=== PATIENT | male | born 1935 | race Caucasian/White ===

== ENCOUNTER → 2016-08-01 | Outpatient (CLI) | payer OTHER ==
[~2016-08-01] MED LIST: ASPI81TA28 PO; CEPH500C PO; DEXA1TAB16 PO; FRS/40 PO; PANT40TA PO; REVLIMID PO; RIVA1TAB4 PO; SIMV20TA2 PO
--- NOTE | 2016-08-01 15:09 | DIAGNOSTIC IMAGING REPORT ---
RIGHT KNEE 2 VIEWS CLINICAL HISTORY: Osteoarthritis. FINDINGS: AP and lateral views of the right knee are obtained. No prior studies are available for comparison at the time of dictation. The skeletal structures are osteopenic. There is moderate tricompartmental degenerative joint space narrowing, greatest at the patellofemoral articulation where there is mild bony sclerosis. There are small marginal osteophytes, patellar enthesophytes, and mild degenerative beaking of the tibial spine. A small joint effusion is noted. Mild soft tissue edema is present on the knee. IMPRESSION: 1. Small joint effusion and mild soft tissue swelling. No acute bony abnormality is seen in the right knee. 2. Osteopenia and arthritic change as above. Electronically signed by: Kj King M.D. 08/01/2016 3:08 PM Dictated Date/Time: 08/01/2016 3:06 PM
== END | disposition home or self-care (01) ==
LOC: C.RAD 14:06
PROVIDERS: ATTEND Family Medicine
DX: M17.11 Unilateral primary osteoarthritis, right knee (principal); M85.861 Other specified disorders of bone density and structure, right lower leg

== ENCOUNTER 2016-11-06 15:06 | Emergency (ER) | payer OTHER ==
[~2016-11-06] VITALS: Ht 185.4 cm; Wt 93.8 kg
[~2016-11-06 15:06] MED LIST changes: -CEPH500C PO
[2016-11-06 15:11] VITALS: Ht 185.4 cm; Wt 93.8 kg
--- NOTE | 2016-11-06 15:28 | EMERGENCY ROOM VISIT NOTE ---
History Report prepared by Raquel: Jered Shelton Under the Supervision of: Dr. Kj Llamas M.D. First contact with patient: 15:14 Chief Complaint: LEG PAIN,LEG INJURY Stated Complaint: LEFT LEG SWELLING History of Present Illness The patient is an 81 year old male on Xarelto with a history of a clot in his leg and lung who presents to the Emergency Room with complaints of persistent left leg swelling and redness that started after a fall 5 days ago. He says that he fell in his shed, and when he fell, he hit his lower left leg on the back of a event security officer. The patient notes that the event security officer was not running. He says that ever since the fall, he has had a bump on his lower left leg, with swelling and redness. He denies any pain or any problems walking. The patient states that the redness has been constant, and as the day goes on, the leg swells up more. He denies any fevers or chills. He notes that he has a history of cellulitis. The patient adds that he has seen Dr. Lorenzo of [facility] in the past. Source of History: patient Onset: 5 days ago Position: leg (left) Quality: other (swelling, redness) Timing: other (persistent) Associated Symptoms: No fevers, No chills Note: Associated symptoms: Denies any pain. Review of Systems See HPI for pertinent positives & negatives. A total of 10 systems reviewed and were otherwise negative. Past Medical & Surgical Medical Problems: (1) DVT (deep venous thrombosis) (2) History of blood clot in rght leg (3) Multiple myeloma (4) Pure Hypercholesterolem Surgical Problems: (1) History of cholecystectomy Family History FH: heart disease Social History Smoking Status: Never Smoker Alcohol Use: none Marital Status: single Housing Status: lives alone Occupation Status: employed Current/Historical Medications Scheduled Aspirin (Aspirin Ec), 81 MG PO DAILY Cephalexin Monohydrate (Keflex), 500 MG PO QID Furosemide (Lasix), 40 MG PO DAILY Pantoprazole (Protonix), 40 MG PO DAILY Rivaroxaban (Xarelto), 20 MG PO DAILY Simvastatin (Zocor), 20 MG PO QPM [Revlimid], 25 MG PO UD Allergies Coded Allergies: No Known Allergies (Unverified , 11/06/16) Physical Exam Vital Signs Date Time Temp Pulse Resp B/P (MAP) Pulse Ox O2 Delivery O2 Flow Rate FiO2 11/06/16 18:09 127/62 11/06/16 17:03 36.4 57 18 109/43 99 Room Air 11/06/16 15:11 36.5 69 20 135/73 96 Room Air Physical Exam GENERAL: Patient is in no acute distress. HEENT: No acute trauma, normocephalic atraumatic, mucous membranes moist, no nasal congestion, no scleral icterus. NECK: No stridor, no adenopathy, no meningismus, trachea is midline. LUNGS: Clear to auscultation bilaterally, no wheeze, no rhonchi, breath sounds equal. HEART: Without murmurs gallops or rubs, regular rate and rhythm. ABDOMEN: Soft, nontender, bowel sounds positive, no hernias, no peritonitis. EXTREMITIES: Chronic lower extremity skin change. Left leg is more edematous than right. There is a presumed mid-anterior left leg hematoma, about 5 cm in greatest dimension. There is surrounding erythema and warmth which extends down to the ankle, and there is some erythema extending up to the medial proximal portion of leg, with an abrasion in this area. NEUROLOGIC: Oriented x 3, no acute motor or sensory deficits, no focal weakness. SKIN: No rash, no jaundice, no diaphoresis. Medical Decision & Procedures ER Provider Diagnostic Interpretation: US results as stated below per my review and radiologist interpretation: LEFT VENOUS DOPP LOWER EXT UNILAT CLINICAL HISTORY: 81 years-old Male presenting with swelling. TECHNIQUE: Real-time grayscale and color and spectral Doppler ultrasound imaging of the veins of the left lower extremity was performed. Compression and augmentation were also utilized. COMPARISON: None. FINDINGS: Left: Common femoral vein: Patent. Femoral vein: Patent. Greater saphenous vein: Patent. Popliteal vein: Patent. Calf veins: Limited visualization. Other: At the site of clinical concern, complex hypoechoic avascular region consistent with a collection. This measures 5.4 x 2.0 x 5.5 cm. No peripheral hyperemia on color Doppler. Mild overlying subcutaneous tissue thickening. IMPRESSION: 1. No evidence of deep venous thrombosis. 2. Complex collection at the site of clinical concern along the medial calf, which is most consistent with a hematoma with abscess considered less likely. Correlate clinically Electronically signed by: Jesus Tucker M.D. 11/06/2016 5:28 PM Dictated Date/Time: 11/06/2016 5:27 PM Laboratory Results 11/06/16 15:34 Red Blood Count 3.07, Mean Corpuscular Volume 102.6, Mean Corpuscular Hemoglobin 36.2, Mean Corpuscular Hemoglobin Concent 35.2, Mean Platelet Volume 11.2, Neutrophils (%) (Auto) 48.5, Lymphocytes (%) (Auto) 27.7, Monocytes (%) ( Auto) 15.5, Eosinophils (%) (Auto) 5.4, Basophils (%) (Auto) 2.5, Neutrophils # (Auto) 1.35, Lymphocytes # (Auto) 0.77, Monocytes # (Auto) 0.43, Eosinophils # ( Auto) 0.15, Basophils # (Auto) 0.07 11/06/16 15:34 Test 11/06/16 15:34 White Blood Count 2.78 K/uL (4.8-10.8) Red Blood Count 3.07 M/uL (4.7-6.1) Hemoglobin 11.1 g/dL (14.0-18.0) Hematocrit 31.5 % (42-52) Mean Corpuscular Volume 102.6 fL (80-100) Mean Corpuscular Hemoglobin 36.2 pg (25-34) Mean Corpuscular Hemoglobin Concent 35.2 g/dl (32-36) Platelet Count 121 K/uL (130-400) Mean Platelet Volume 11.2 fL (7.4-10.4) Neutrophils (%) (Auto) 48.5 % Lymphocytes (%) (Auto) 27.7 % Monocytes (%) (Auto) 15.5 % Eosinophils (%) (Auto) 5.4 % Basophils (%) (Auto) 2.5 % Neutrophils # (Auto) 1.35 K/uL (1.4-6.5) Lymphocytes # (Auto) 0.77 K/uL (1.2-3.4) Monocytes # (Auto) 0.43 K/uL (0.11-0.59) Eosinophils # (Auto) 0.15 K/uL (0-0.5) Basophils # (Auto) 0.07 K/uL (0-0.2) RDW Standard Deviation 55.6 fL (36.4-46.3) RDW Coefficient of Variation 14.9 % (11.5-14.5) Immature Granulocyte % (Auto) 0.4 % Immature Granulocyte # (Auto) 0.01 K/uL (0.00-0.02) Prothrombin Time 12.4 SECONDS (9.0-12.0) Prothromb Time International Ratio 1.2 (0.9-1.1) Activated Partial Thromboplast Time 30.3 SECONDS (21.0-31.0) Partial Thromboplastin Ratio 1.2 Anion Gap 6.0 mmol/L (3-11) Est Creatinine Clear Calc Drug Dose 59.5 ml/min Estimated GFR () 72.6 Estimated GFR (Non- 62.6 BUN/Creatinine Ratio 14.4 (10-20) Calcium Level 8.5 mg/dl (8.5-10.1) Laboratory results reviewed by me. Medications Administered Medications (Trade) Dose Ordered Sig/Clare Route Start Time Stop Time Status Last Admin Dose Admin Ceftriaxone Sodium (Rocephin Inj) 1 gm NOW STAT IV 11/06/16 16:44 11/06/16 16:45 DC 11/06/16 16:58 1 GM ED Course 1515: The patient was evaluated in room B9. A complete history and physical exam was performed. 164: Ordered Rocephin Inj 1 gm IV. 174: I discussed the patient with Dr. Duenas of [facility] - he says that the patient can go and he will see the patient in the office. 1747: Reevaluated the patient and he is resting comfortably. Discussed results and discharge instructions: he verbalized understanding and agreement. The patient is ready for discharge. Medical Decision Differential diagnosis includes but is not limited to hematoma, cellulitis, DVT , neurovascular compromise, renal failure, coagulopathy. There is a pancytopenia present, this is baseline for the patient. There is no significant electrolyte abnormality or kidney failure. Blood cultures are pending. Left leg ultrasound shows a hematoma, no evidence for DVT. There was no concerning coagulopathy. The patient is not toxic or febrile, he is not vomiting. He was given IV ceftriaxone for presumed left lower extremity cellulitis. I spoke to orthopedics. The patient is being followed in their office for this hematoma and infection. Intervention/drainage may be required at some point. The patient was placed in a compressive dressing. He is being discharged on Keflex. He was told to stay off his leg and to return for worsening symptoms. Medication Reconcilliation Current Medication List: was personally reviewed by me Blood Pressure Screening Patient's blood pressure: Elevated blood pressure Blood pressure disposition: Elevated BP felt to be situational Consults Time Called: 1740 Consulting Physician: Dr. Duenas of [facility] Returned Call: [phone] I discussed the patient with [facility] - he says that the patient can go and he will see the patient in the office. Impression Primary Impression: Cellulitis of left leg Additional Impression: Traumatic hematoma of left lower leg Scribe Attestation The scribe's documentation has been prepared under my direction and personally reviewed by me in its entirety. I confirm that the note above accurately reflects all work, treatment, procedures, and medical decision making performed by me. Departure Information Dispostion Home / Self-Care Prescriptions Cephalexin Monohydrate (Keflex) 500 Mg Cap 500 MG PO QID for 10 Days, #40 CAP Prov: Kj Llamas M.D. 11/06/16 Referrals Andre Song M.D. (PCP) Patient Instructions My [facility] Additional Instructions keflex 4x per day for 10 days wear the pressure dressing for now try to stay off of your feet keep the leg elevated call and set up orthopedic appt for this week--call in the am return for fever or if feeling worse Problem Qualifiers
[2016-11-06 16:02] LABS: BASO % 2.5 %; BASO ABS # 0.07 K/uL (0-0.2); COMPLETE YES; EOS % 5.4 %; HEMATOCRIT 31.5 % (42-52); IG% 0.4 %; LYMPH % 27.7 %; LYMPH ABS # 0.77 K/uL (1.2-3.4); MEAN CELL VOLUME 102.6 fL (80-100); MEAN CORPUSCULAR HEMOGLOBIN 36.2 pg (25-34); MEAN CORPUSCULAR HGB CONC 35.2 g/dl (32-36); MEAN PLATELET VOLUME 11.2 fL (7.4-10.4); MONO % 15.5 %; NEUT % 48.5 %; PLATELET COUNT 121 K/uL (130-400); RED BLOOD COUNT 3.07 M/uL (4.7-6.1); WHITE BLOOD COUNT 2.78 K/uL (4.8-10.8)
[2016-11-06 16:09] LABS: INR 1.2 (0.9-1.1); PARTIAL THROMBOPLASTIN RATIO 1.2; PROTHROMBIN TIME (PATIENT) 12.4 SECONDS (9.0-12.0)
[2016-11-06 16:17] LABS: BUN/CREATININE RATIO 14.4 (10-20); CALCIUM 8.5 mg/dl (8.5-10.1); CREATININE 1.1 mg/dl (0.60-1.40); POTASSIUM 3.3 mmol/L (3.5-5.1)
[2016-11-06] MEDS ORDERED: CEFTRIAXONE SOD INJ 1 GM ADDVIAL IV STA (16:44)
[2016-11-06 17:03] VITALS: PULSE 57; TEMP 36.4; O2SAT 99
--- NOTE | 2016-11-06 17:30 | DIAGNOSTIC IMAGING REPORT ---
LEFT VENOUS DOPP LOWER EXT UNILAT CLINICAL HISTORY: 81 years-old Male presenting with swelling. TECHNIQUE: Real-time grayscale and color and spectral Doppler ultrasound imaging of the veins of the left lower extremity was performed. Compression and augmentation were also utilized. COMPARISON: None. FINDINGS: Left: Common femoral vein: Patent. Femoral vein: Patent. Greater saphenous vein: Patent. Popliteal vein: Patent. Calf veins: Limited visualization. Other: At the site of clinical concern, complex hypoechoic avascular region consistent with a collection. This measures 5.4 x 2.0 x 5.5 cm. No peripheral hyperemia on color Doppler. Mild overlying subcutaneous tissue thickening. IMPRESSION: 1. No evidence of deep venous thrombosis. 2. Complex collection at the site of clinical concern along the medial calf, which is most consistent with a hematoma with abscess considered less likely. Correlate clinically Electronically signed by: Jesus Tucker M.D. 11/06/2016 5:28 PM Dictated Date/Time: 11/06/2016 5:27 PM
[2016-11-06] MEDS ORDERED: CEPH500C PO (17:53)
[2016-11-06 18:09] VITALS: BP 127/62
== END 2016-11-06 18:09 | disposition home or self-care (01) ==
LOC: C.EDB 15:08
DX: L03.116 Cellulitis of left lower limb (principal); S80.12XA Contusion of left lower leg, initial encounter; W18.30XA Fall on same level, unspecified, initial encounter; Y92.018 Other place in single-family (private) house as the place of occurrence of the external cause; S80.812A Abrasion, left lower leg, initial encounter; C90.00 Multiple myeloma not having achieved remission; E78.00 Pure hypercholesterolemia, unspecified; Z79.01 Long term (current) use of anticoagulants; Z79.82 Long term (current) use of aspirin; Z86.718 Personal history of other venous thrombosis and embolism

== ENCOUNTER 2024-09-04 16:02 | Inpatient (IN) ==
--- NOTE | 2024-09-04 16:53 | Emergency Department Note ---
Impression & Plan Acute dyspnea, Acute hypoxemic respiratory failure, Large pleural effusion, Elevated brain natriuretic peptide (BNP) level ED Provider Note HISTORY OF PRESENT ILLNESS: Patient is an 89-year-old male presenting with shortness of breath. Patient reports that starting 2 days ago he became very short of breath. He is unable to take more than 2-3 steps before becoming significantly winded and having to sit down. He does not wear any supplemental oxygen at baseline. He reports he has chronic lower extremity edema. He is on Xarelto for history of DVTs. He had outpatient chest x-ray done at his facility which showed fluid on his right lungs and was referred to the emergency department. Patient denies any chest pain while at rest, but reports when he tries to get up and take any steps, he becomes very winded and has substernal chest pain. He denies any abdominal pain, nausea or vomiting. Denies any fevers. He reports that he has been coughing and it sounds very wet, but he is unable to bring anything up. Patient denies any recent falls prior to his acute shortness of breath in the last 2 days. He reports his last fall was 2 weeks ago when he presented to the hospital on 08/17/2024. ROS: as above PHYSICAL EXAM: Constitutional: Patient appears in no acute distress. HENT: Head: Normocephalic and atraumatic. Eyes: EOMI, PERRL Mouth/Throat: Mucous membranes moist. Neck: Trachea midline. Neck supple. Cardiovascular: Irregular rhythm. No murmurs, rubs or gallops. Intact distal pulses. Pulmonary/Chest: Increased work of breathing. Conversationally dyspneic. Significantly decreased breath sounds on the right with coarse breath sounds in the right lower lobe. Patient is on 2 L nasal cannula. Abdominal: Abdomen soft, no tenderness, rebound or guarding. Musculoskeletal: No edema, tenderness or deformity noted. Skin: Warm and dry. No rash, erythema, pallor or cyanosis Psychiatric: Appropriate mood and affect for situation. Neurological: Alert and keenly responsive. CN II-XII grossly intact, moving all extremities equally and fully. MDM: - Vitals signs showed hypoxia - History obtained via patient. History as above. - Chronic conditions affecting care: GERD; multiple myeloma; HLD; DVT; Afib - Differential diagnoses include, but are not limited to: Congestive heart failure; acute coronary syndrome; COPD/asthma exacerbation; pulmonary edema; pulmonary embolism; pneumonia; pneumothorax; viral syndrome - Order placed for continuous cardiac monitoring. At this time, monitor showed rate of 93 bpm with irregular rhythm, per my interpretation. - External medical records reviewed. Discharge summary dated 08/24/2024 was reviewed. Patient was admitted for septic shock at that time secondary to necrotizing fasciitis. - EKG image interpreted by myself showed atrial fibrillation. Rate 78 bpm. QT 358. No acute ischemic changes. - Laboratory workup interpreted by myself showed normal WBC; anemia (Hgb 10.1); elevated INR (1.4); stable electrolytes other than hypocalcemia (Ca 8.3); normal troponin; elevated BNP (328) - UA negative for infection - Viral respiratory panel negative - CXR image reviewed by myself showed complete opacification of the right lung, per my interpretation. Radiology notes this to be consistent with a large pleural effusion. - Discussed case with business services vice president on-call, Dr. Chino, at 17:33. States that the patient's chest x-ray looks like a bronchial obstruction and requested a CT chest to be performed. - CT chest wo contrast showed large right pleural effusion occupying the hemothorax and compressing the right lung. Small left pleural effusion. Noted to have ribs 9 and 10 with displaced rib fractures, but these are likely from previous fall 2 weeks ago. - Sputum Gram stain and culture ordered. Patient was transition to high flow nasal cannula from the regular nasal cannula due to increased work of breathing. - Given 40 mg IV lasix - Discussion was had with machine adjuster leader case trim about patient's case and need for admission - Hospitalist, Dr. Alfaro, consulted for admission - [facility]. I have personally spent 42 minutes of critical care time in the direct management of this patient. This includes bedside care, interpretation of diagnostic studies, and testing, discussion with consultants, patient, and family members, and other required patient management activities. This 42 minutes is in excess of all separately billable procedures. ASSESSMENT AND PLAN: Diagnosis: Acute dyspnea; acute hypoxemic respiratory failure; large pleural effusion; elevated BNP Plan: Admit Past Med/Surg History Problem List (Updated 09/04/24 @ 20:16 by Carlene Alcocer MD) Elevated brain natriuretic peptide (BNP) level (Acute) Large pleural effusion (Acute) Acute hypoxemic respiratory failure (Acute) Acute dyspnea (Acute) Vitamin B12 deficiency Atrial fibrillation Acute respiratory failure Pleural effusion Bacteremia due to Clostridium species Gram-positive bacteremia Infection due to Clostridium septicum Closed femur fracture Hyponatremia Elevated troponin Endotracheally intubated Electrolyte disorder Abnormal LFTs Hypomagnesemia Pancytopenia Rhabdomyolysis Head injury Septic shock Necrotizing fasciitis Sepsis (Acute) Acute hypokalemia (Acute) Fasciitis (Acute) Pneumonia (Acute) Anticoagulated (Acute) Multiple falls (Acute) Generalized weakness (Acute) Fracture of proximal end of right femur Recurrent left inguinal hernia Left groin mass Multiple myeloma (Chronic) Follow[facility] by [facility], underwent recent testing advised by heme/onc for unintentional weight loss-see 10/24/22 note Macrocytic anemia 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 AC with rivaroxaban daily. Hyperlipidemia (Chronic) GERD (gastroesophageal reflux disease) (Chronic) Chronic venous stasis (Chronic) Medical History Weight loss, non-intentional pt states lost about 30lbs beginning of 2023 intentionally and then another almost 30unitentionally; d/w PCP and [facility] who ordered colonosopy/EGD which he completed last month (was told were normal) and is awaiting further advice Squamous cell skin cancer s/p MOHS Hyperlipidemia GERD (gastroesophageal reflux disease) Chronic venous stasis DVT (deep venous thrombosis) per pt, had 1 DVT in each leg and after 2nd was put on Xarelto; no DVT since starting Xarelto Multiple myeloma follows with CCP; on lenalidomide daily Anemia macrocytic; pt states occasionally receives iron transfusios; follows with Heme Incarcerated left inguinal hernia History of COVID-26 August 2021 Generalized osteoarthritis Primarily of R knee. Intermittent corticosteroid injections per ortho. 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 Hx of removal of cyst left knee History of colonoscopy S/P cholecystectomy Family History Mother Cardiac disorder Myocardial infarction Brother Cardiac disorder Father Stroke Denies family history of Ovarian cancer Prostate cancer Breast cancer Colorectal cancer Social History Smoking Status: Unknown if ever smoked Tobacco Type: Cigarettes Age Started Using Tobacco: 18; Age Quit Using Tobacco: 21; packs per day: 1; Second Hand Exposure: No; Do You Dip or Chew Tobacco: No; Hx Alcohol Use: Yes Alcohol type: wine Alcohol Intake Frequency: 4 or More x per/Week Alcohol Intake Frequency Comment: 1 glass daily Hx Substance Use: No Preferred Language: Kiswahili Communication Ability: Impaired Visual Impairment: No Limitations Hearing Ability: Use of Hearing Aid Health Information Tech Required: No Beliefs That Will Affect Care: None marital status: / Current Living Situation: Alone current occupational status: retired How many Children do You have: 3 Feels Safe at Home: Yes Childhood Exposure to Second-Hand Smoke: Yes (parents did ) Diet: regular caffeine: Yes (drinks coffee 1-2 a day, green tea, iced tea ) Dental Care, Regularly: Yes Physical Activity Frequency: 5-6 Times per Week Seatbelt Use: always Sunscreen Use: Yes (tries to ) Assistive Devices: Cane, Walker and Wheelchair Allergies Allergies Allergy/AdvReac Type Severity Reaction Status Date / Time No Known Allergies Allergy Verified 08/17/24 17:04 Home Meds Home Medications Medication Instructions Recorded Confirmed lenalidomide 25 mg capsule 25 mg PO QPM 10/23/21 09/04/24 (Revlimid) ergocalciferol (vitamin D2) 1,250 1,250 mcg PO WK 05/21/24 09/04/24 mcg (50,000 unit) capsule acyclovir 400 mg tablet 400 mg PO BID 08/17/24 09/04/24 bortezomib 3.5 mg injection powder 0 mg IV WK 08/17/24 09/04/24 for solution (Velcade) Previous Rx's Medication Instructions Recorded pantoprazole 40 mg tablet,delayed 40 mg PO HS #90 tabs 01/13/24 release potassium chloride 20 mEq 20 meq PO HS #90 tabs 01/21/24 tablet,extended release rivaroxaban 20 mg tablet (Xarelto) 20 mg PO QPM #90 tabs 03/04/24 metoprolol tartrate 25 mg tablet 12.5 mg (1/2 x 25 mg) PO QAM 30 08/24/24 days #30 tabs midodrine 10 mg tablet 10 mg PO TID@0800,1200,1700 30 08/24/24 days #90 tabs pkevkqym-pyl-vzlya acid 0.4 1 tab PO QAM 30 days #30 tabs 08/24/24 mg-lycopene 300 mcg-lutein 250 mcg tablet (Cerovite Senior) Results & Data (ED) Vital Signs Vital Signs - 24 hr 09/04/24 16:10 09/04/24 16:10 09/04/24 16:10 Temperature 36.4 C L Temperature Source Oral Pulse Rate 85 Pulse Rate [Right Finger] Respiratory Rate 24 Respiratory Effort / Characteristics Spontaneous Labored Spontaneous Labored Respiratory Depth Normal Normal Respiratory Pattern Regular Regular Blood Pressure 131/59 L Blood Pressure [Right Arm] Blood Pressure Mean 83 Blood Pressure Mean [Right Arm] Pulse Oximetry 91 91 Oxygen Delivery Method Nasal Cannula Room Air Room Air Oxygen Flow Rate 2 Fraction of Inspired Oxygen Sepsis Recent Fever Within 48 Hours No Sepsis New/Unexplained Change in Mental Status No Sepsis Action Taken by Nursing No Action Required Oxygen Flow Rate - Titration 2 Pulse Oximetry Post Tiitration 95 09/04/24 16:24 09/04/24 16:31 09/04/24 17:29 Temperature Temperature Source Pulse Rate 80 Pulse Rate [Right Finger] 94 H Respiratory Rate 33 H Respiratory Effort / Characteristics Spontaneous Labored Short of Breath Respiratory Depth Respiratory Pattern Blood Pressure Blood Pressure [Right Arm] Blood Pressure Mean Blood Pressure Mean [Right Arm] Pulse Oximetry 96 96 Oxygen Delivery Method Nasal Cannula High Flow Nasal Cannula Oxygen Flow Rate 2 50 Fraction of Inspired Oxygen 30 Sepsis Recent Fever Within 48 Hours Sepsis New/Unexplained Change in Mental Status Sepsis Action Taken by Nursing Oxygen Flow Rate - Titration Pulse Oximetry Post Tiitration 09/04/24 17:30 09/04/24 19:00 Temperature Temperature Source Pulse Rate Pulse Rate [Right Finger] 81 94 H Respiratory Rate 29 H 28 H Respiratory Effort / Characteristics Non-Labored Spontaneous Spontaneous Labored Respiratory Depth Normal Normal Respiratory Pattern Regular Blood Pressure Blood Pressure [Right Arm] 113/69 97/62 L Blood Pressure Mean Blood Pressure Mean [Right Arm] 83 73 Pulse Oximetry 95 94 Oxygen Delivery Method High Flow Nasal Cannula High Flow Nasal Cannula Oxygen Flow Rate Fraction of Inspired Oxygen Sepsis Recent Fever Within 48 Hours Sepsis New/Unexplained Change in Mental Status Sepsis Action Taken by Nursing Oxygen Flow Rate - Titration Pulse Oximetry Post Tiitration Laboratory Data 09/04/24 16:36 09/04/24 16:36 Lab Results 09/04/24 09/04/24 09/04/24 Range/Units 16:36 16:37 17:50 WBC 5.19 (4.8-10.8) K/ul RBC 3.00 L (4.70-6.10) M/uL Hgb 10.1 L (14.0-18.0) g/dl Hct 31.8 L (42.0-52.0) % MCV 106.0 H (80.0-100.0) fL MCH 33.7 (25.0-34.0) pg MCHC 31.8 L (32.0-36.0) g/dL RDW Std Deviation 66.3 H (36.4-46.3) fL RDW Coeff of Ezequiel 17.2 H (11.5-14.5) % Plt Count 169 (130-400) K/uL MPV 11.1 (9.4-12.4) fL Immature Gran % (Auto) 0.2 % Neut % (Auto) 75.3 % Lymph % (Auto) 8.9 % Dane % (Auto) 15.2 % Eos % (Auto) 0.2 % Baso % (Auto) 0.2 % Neut # (Auto) 3.91 (1.40-6.50) K/uL Lymph # (Auto) 0.46 L (1.20-3.40) K/uL Dane # (Auto) 0.79 H (0.11-0.59) K/uL Eos # (Auto) 0.01 (0.00-0.50) K/uL Baso # (Auto) 0.01 (0.00-0.20) K/uL Immature Gran # (Auto) 0.01 (0.01-0.20) K/uL PT 15.2 H (9.0-12.0) Seconds INR 1.4 H (0.9-1.1) Sodium 139 (136-145) mmol/L Potassium 3.6 (3.5-5.1) mmol/L Chloride 101 (98-107) mmol/L Carbon Dioxide 32 (21-32) mmol/L Anion Gap 6 (3-11) BUN 25 H (6-23) mg/dl Creatinine 0.80 (0.6-1.4) mg/dl Est Cr Clr Drug Dosing 68.7 ml/min eGFR 84.59 BUN/Creatinine Ratio 31.3 H (10-20) Glucose 190 H (70-99(Fasting)) mg/dl Calcium 8.3 L (8.6-10.3) mg/dl Magnesium 1.9 (1.7-2.4) mg/dl Total Bilirubin 0.8 (0.2-1.0) mg/dl AST 15 (13-39) U/L ALT 13 (7-52) U/L Alkaline Phosphatase 159 H (34-104) U/L Troponin I High Sens 11.9 (0-20) pg/ml B-Natriuretic Peptide 328 H (0-100) pg/ml Total Protein 6.2 (6.0-8.3) gm/dl Albumin 2.6 L (3.4-5.0) gm/dl Globulin 3.6 (2.5-4.0) gm/dl Albumin/Globulin Ratio 0.7 L (0.9-2) Urine Color Dark Yellow Urine Appearance Clear (Clear) Urine pH 5.5 (4.5-7.5) Ur Specific [place] 1.020 (1.000-1.030) Urine Protein 1+ H (Negative) Urine Glucose (UA) Negative (Negative) Urine Ketones Trace H (Negative) Urine Blood 1+ H (Negative) Urine Nitrite Negative (Negative) Urine Bilirubin Negative (Negative) Urine Urobilinogen Negative (Negative) Ur Leukocyte Esterase Negative (Negative) Urine WBC (Auto) 0-5 (0-5) /hpf Urine RBC (Auto) >20 H (0-2) /hpf U Hyaline Cast (Auto) 6-10 H (0-2) /lpf U Epithel Cells (Auto) 0-2 (0-2) /hpf Urine Bacteria (Auto) None Seen (None Seen) Hyaline Casts Present A (None Presnt) /lpf Urine Mucus Present A (None Prsent) Urine Comment Adenovirus (PCR) Not Detected (NotDetected) B. pertussis DNA (PCR) Not Detected (NotDetected) B.parapertussis DNA PCR Not Detected (NotDetected) C. pneumoniae DNA (PCR) Not Detected (NotDetected) Coronavirus OC43 (PCR) Not Detected (NotDetected) Coronavirus HKU1 (PCR) Not Detected (NotDetected) Coronavirus 229E (PCR) Not Detected (NotDetected) SARS-CoV-2 (PCR) Not Detected (NotDetected) Coronavirus NL63 (PCR) Not Detected (NotDetected) Human Metapneumovir PCR Not Detected (NotDetected) Influenza Type A (PCR) Not Detected (NotDetected) Influenza Type B (PCR) Not Detected (NotDetected) M. pneumoniae (PCR) Not Detected (NotDetected) Parainfluenza 1 (PCR) Not Detected (NotDetected) Parainfluenza 2 (PCR) Not Detected (NotDetected) Parainfluenza 3 (PCR) Not Detected (NotDetected) Parainfluenza 4 (PCR) Not Detected (NotDetected) RSV (PCR) Not Detected (NotDetected) Entero/Rhino (PCR) Not Detected (NotDetected) Administered Medications Discontinued Medications Furosemide (Furosemide 40 Mg/4 Ml Vial) 40 mg IV ONE ONE Stop: 09/04/24 17:27 Last Admin: 09/04/24 17:45 Dose: 40 mg Documented By: ALLEGRA Ioversol (Optiray 320 100ml) 93 ml IV ONCE ONE Stop: 09/04/24 18:10 Last Admin: 09/04/24 18:09 Dose: 93 ml Documented By: EDK Imaging Data Radiologist's Impression: Chest X-Ray 09/04/24 16:20 Chest radiograph, one view History: Dyspnea Comparison: 08/20/2024 Findings/impression: Single AP view of the chest performed. Complete opacification of the right hemithorax, consistent with enlarged pleural effusion from what was seen on prior. A smaller left pleural effusion is also appreciated. No pneumothorax. The cardiac silhouette is partially obscured. The central airway is midline. Right shoulder severe degenerative change. Degenerative changes throughout the thoracic spine. Inferolateral right rib fractures again seen as on prior. Electronically signed by Luiz Carrillo 09-04-2024 5:[address] 09/04/24 17:33 CT chest without contrast History: Shortness of breath Comparison: None Technique: Helical CT imaging of the chest performed without IV contrast Dose reduction techniques were achieved by using automatic exposure control and/or adjustment of mA and/or kV according to patient size and/or use of iterative reconstruction technique. Findings: A large right pleural effusion, occupies essentially the entire right hemithorax, compressing of the right lung. There is a small left pleural effusion. No pneumothorax. Heart size is normal. The thoracic aorta is normal in size. The pulmonary artery is normal in size. No significant pericardial effusion. No suspicious lymphadenopathy in the chest. The central airway is clear. Limited visualized upper abdomen. Posterior right-sided rib fractures, rib 10 with healing callus posteriorly, and laterally is a displaced fracture without healing callus. Posterior right rib 11 fracture with healing callus. Displaced lateral right rib 9 fracture without healing callus. Diffuse anterior flowing degenerative osteophytes of the thoracic spine. Impression: Large right pleural effusion occupying the hemithorax, and compressing the right lung. Small left pleural effusion. Right ribs 9 and 10, contain displaced rib fractures, which may be acute. There is also healing callus associated with a posterior right rib 11, and another portion of the posterior right rib 10, suggesting healing fractures. Electronically signed by Luiz Carrillo 09-04-2024 6:41 PM Discharge Plan Visit Data Chief Complaint: Respiratory Problems ED Provider: Carlene Alcocer Discharge Problem: Acute dyspnea, Acute hypoxemic respiratory failure, Large pleural effusion, Elevated brain natriuretic peptide (BNP) level Condition: Fair Forms Stand Alone Forms: [employer] Prescriptions Prescriptions: No Action pantoprazole 40 mg tablet,delayed release (DR/EC) 40 mg PO HS Qty: 90 3RF potassium chloride 20 mEq tablet extended release 20 meq PO HS Qty: 90 1RF Xarelto 20 mg tablet 20 mg PO QPM Qty: 90 3RF Rx Instructions: must administer with evening meal ergocalciferol (vitamin D2) 1,250 mcg (50,000 unit) capsule 1,250 mcg PO WK lenalidomide [Revlimid] 25 mg Capsule 25 mg PO QPM Hold Instructions: Resume on 09/08/24. Rx Instructions: TAKES FOR 21 DAYS, THEN OFF FOR 7 DAYS. swallow whole with glass of water; do not open, crush, chew , break, or dissolve acyclovir 400 mg tablet 400 mg PO BID bortezomib [Velcade] 3.5 mg Recon Soln 0 mg IV WK Hold Instructions: Resume on 09/08/24. Cerovite Senior 0.4 mg-300 mcg- 250 mcg Tablet 1 tab PO QAM 30 Days Qty: 30 0RF midodrine 10 mg Tablet 10 mg PO TID@0800,1200,1700 30 Days Qty: 90 0RF metoprolol tartrate 25 mg Tablet 12.5 mg PO QAM 30 Days Qty: 30 0RF Referrals Referrals: Perez Berman DO [Primary Care Provider] -
[2024-09-04 16:58] LABS: Hematocrit (blood only) 31.8 % (42.0-52.0); Hemoglobin 10.1 g/dl (14.0-18.0); Immature Granulocytes # (auto) 0.01 K/uL (0.01-0.20); Immature Granulocytes % (auto) 0.2 %; Mean Corpuscular Hemoglobin 33.7 pg (25.0-34.0); Mean Corpuscular Volume 106.0 fL (80.0-100.0); Platelet Count 169 K/uL (130-400); RDW Standard Deviation 66.3 fL (36.4-46.3); Red Blood Count 3.00 M/uL (4.70-6.10); White Blood Count 5.19 K/ul (4.8-10.8)
[2024-09-04 17:17] LABS: Alanine Aminotransferase 13.0 U/L (7-52); Albumin Globulin Ratio 0.7 (0.9-2); Alkaline Phosphatase 159.0 U/L (34-104); Anion Gap 6.0 (3-11); Bilirubin,Total 0.8 mg/dl (0.2-1.0); Blood Urea Nitrogen 25.0 mg/dl (6-23); Calcium 8.3 mg/dl (8.6-10.3); Carbon Dioxide 32.0 mmol/L (21-32); Chloride 101.0 mmol/L (98-107); Creatinine Clr Calc Pharmacy 68.7 ml/min; Globulin 3.6 gm/dl (2.5-4.0); Glucose 190.0 mg/dl (70-99(Fasting)); Magnesium 1.9 mg/dl (1.7-2.4); Potassium 3.6 mmol/L (3.5-5.1); Sodium 139.0 mmol/L (136-145); Total Protein 6.2 gm/dl (6.0-8.3)
--- NOTE | 2024-09-04 17:22 | XRay Report ---
Chest radiograph, one view History: Dyspnea Comparison: 08/20/2024 Findings/impression: Single AP view of the chest performed. Complete opacification of the right hemithorax, consistent with enlarged pleural effusion from what was seen on prior. A smaller left pleural effusion is also appreciated. No pneumothorax. The cardiac silhouette is partially obscured. The central airway is midline. Right shoulder severe degenerative change. Degenerative changes throughout the thoracic spine. Inferolateral right rib fractures again seen as on prior. Electronically signed by Luiz Carrillo 09-04-2024 5:21 PM
[2024-09-04 17:42] LABS: INR 1.4 (0.9-1.1); Prothrombin Time 15.2 Seconds (9.0-12.0)
[2024-09-04 17:43] LABS: Chlamydia pneumoniae PCR Not Detected (NotDetected); Coronavirus 229E PCR Not Detected (NotDetected); Coronavirus CoV-2 (COVID19)PCR Not Detected (NotDetected); Coronavirus HKU1 PCR Not Detected (NotDetected); Coronavirus NL63 PCR Not Detected (NotDetected); Coronavirus OC43PCR Not Detected (NotDetected); Human Metapneumovirus PCR Not Detected (NotDetected); Parainfluenza Virus 1 PCR Not Detected (NotDetected); Parainfluenza Virus 2 PCR Not Detected (NotDetected); Parainfluenza Virus 3 PCR Not Detected (NotDetected); Parainfluenza Virus 4 PCR Not Detected (NotDetected); Respiratory Syncytial VirusPCR Not Detected (NotDetected); Rhinovirus/Enterovirus PCR Not Detected (NotDetected)
[2024-09-04] MEDS: FUROSEMIDE 40 MG/4 ML VIAL IV ONE (17:45)
[2024-09-04] MEDS: OPTIRAY 320 100ml IV ONE (18:09)
[2024-09-04 18:20] LABS: Appearance Urine Clear (Clear); Bacteria Urine Automated None Seen (None Seen); Epithelial Cell Urine Auto 0-2 /hpf (0-2); Glucose Urine UA Negative (Negative); RBC Urine Automated >20 /hpf (0-2); WBC Urine Automated 0-5 /hpf (0-5)
--- NOTE | 2024-09-04 18:42 | CT Scan Report ---
CT chest without contrast History: Shortness of breath Comparison: None Technique: Helical CT imaging of the chest performed without IV contrast Dose reduction techniques were achieved by using automatic exposure control and/or adjustment of mA and/or kV according to patient size and/or use of iterative reconstruction technique. Findings: A large right pleural effusion, occupies essentially the entire right hemithorax, compressing of the right lung. There is a small left pleural effusion. No pneumothorax. Heart size is normal. The thoracic aorta is normal in size. The pulmonary artery is normal in size. No significant pericardial effusion. No suspicious lymphadenopathy in the chest. The central airway is clear. Limited visualized upper abdomen. Posterior right-sided rib fractures, rib 10 with healing callus posteriorly, and laterally is a displaced fracture without healing callus. Posterior right rib 11 fracture with healing callus. Displaced lateral right rib 9 fracture without healing callus. Diffuse anterior flowing degenerative osteophytes of the thoracic spine. Impression: Large right pleural effusion occupying the hemithorax, and compressing the right lung. Small left pleural effusion. Right ribs 9 and 10, contain displaced rib fractures, which may be acute. There is also healing callus associated with a posterior right rib 11, and another portion of the posterior right rib 10, suggesting healing fractures. Electronically signed by Luiz Carrillo 09-04-2024 6:41 PM
--- NOTE | 2024-09-04 19:37 | History & Physical Report ---
Date of Service September 04, 2024 Assessment & Plan (1) Pleural effusion: (2) Acute respiratory failure: (3) Multiple myeloma: (4) History of deep venous thrombosis: (5) Atrial fibrillation: (6) Vitamin B12 deficiency: Plan 89-year-old man with multiple myeloma and recently diagnosed atrial fibrillation who came in with 2 days of increasing shortness of breath at rest. He had a femur fracture this April. He was recently hospitalized from 08/17 - 08/24. during that admission he was critically ill with necrotizing fasciitis of his right thigh from Clostridium and he was bacteremic. He had debridement, treatment with antibiotics, and was discharged to [facility] for rehab with wound VAC. He should have completed his course of Bactrim 4 days ago as advised by ID. he is admitted with highly symptomatic large right pleural effusion # large right pleural effusion feeling almost entire right hemithorax causing acute respiratory failure he did have some relatively mild pleural effusion visible on his chest x-ray from 08/20. He has severe anasarca, is hypoalbuminemic, and it is possible that the effusion is simply transudative and related to his fluid overload. He is not known to have CHF, Echo 08/20 with EF 55-60% and moderate MR. Could be parapneumonic but empyema seems less likely since not septic at this time. Myeloma rarely causes myelomatous effusion. He has several right sided rib fractures but I do not think any are acute and Hg has increased compared to discharge so hemothorax unlikely. - he is not severely hypoxic however work of breathing significantly improved on high flow oxygencontinue this - he is at risk for tiring out and hypercarbia, obtain ABG or VBG with any change in status or alteration in mental status - he is more comfortable on high flow and will try to avoid morphine or lorazepam for now but these can be used judiciously for dyspnea - ED consulted with Dr. Chino who recommended chest CT - holding Xarelto, keep n.p.o. on sips and chips in case he has respiratory worsening overnight - he will need thoracentesis soon hopefully can hold until tomorrow when some of the Xarelto has reversed. Calling [facility] to double check when xarelto was last given, hopefully 09/03 dinner time - no antibiotics at this time # atrial fibrillation and history of DVT on xarelto - xarelto held - continue metoprolol - SCD's # recent septic shock from Clostridium septicum R thigh necrotizing fasciitis and bacteremia - continue wound care, consulted WON to continue wound vac - completed antibiotics - had been on midodrine for hypotension - clarify whether currently on this. 10 tid ordered # multiple myeloma - followed by Dr. Kingsley - recently on velcade and revlimid - held - WBC normal at 4, platelets normal, anemia stable # B12 deficiency, macrocytosis. Recent B12 level in the 100s. Start daily IM B12 # DVT ppx - SCD for tonight, recent dose of xarelto I diiscussed code status with him in some detail. I did discuss likely outcomes of CPR and intubation, which would be poor in his case. He prefers trial of CPR and of intubation at this point. He says he would not want male infertility specialist mechanical ventilation or trach. He has had significant decline in his medical and functional status since April of this year. He is readmitted following a recent critical illness. He remains very weak and is able to stand and transfer but not able to walk. Its fairly unlikely he will regain functional status to the point where he can resume full treatment for his myeloma. Palliative care consultation is appropriate, which I will discuss with him. His NOK is his son James. History of Present Illness Chief Complaint: shortness of breath for the last 2 days Primary Care Provider: Perez Berman, 89-year-old man with multiple myeloma and atrial fibrillation who came in with 2 days of increasing shortness of breath at rest. He had some rib pain during this time but none currently. He is coughing up white sputum. No hemoptysis. No fevers or chills. He had a femur fracture this April. He was recently hospitalized from 08/17 - 08/24. during that admission he was critically ill with necrotizing fasciitis of his right thigh from Clostridium and he was bacteremic. He had debridement, treatment with antibiotics, and was discharged to [facility] for rehab. He should have completed his course of Bactrim 4 days ago as advised by ID. He has severe anasarca since his previous hospitalization which he says has been improving a lot. prior to that admission he had been on Revlimid and Velcade for his myeloma. Allergies Allergy/AdvReac Type Severity Reaction Status Date / Time No Known Allergies Allergy Verified 08/17/24 17:04 Home Medications Medication Instructions Recorded Confirmed Type lenalidomide 25 mg capsule 25 mg PO QPM 10/23/21 09/04/24 History (Revlimid) pantoprazole 40 mg tablet,delayed 40 mg PO HS #90 tabs 01/13/24 09/04/24 Rx release potassium chloride 20 mEq 20 meq PO HS #90 tabs 01/21/24 09/04/24 Rx tablet,extended release rivaroxaban 20 mg tablet (Xarelto) 20 mg PO QPM #90 tabs 03/04/24 09/04/24 Rx ergocalciferol (vitamin D2) 1,250 1,250 mcg PO WK 05/21/24 09/04/24 History mcg (50,000 unit) capsule acyclovir 400 mg tablet 400 mg PO BID 08/17/24 09/04/24 History bortezomib 3.5 mg injection powder 0 mg IV WK 08/17/24 09/04/24 History for solution (Velcade) metoprolol tartrate 25 mg tablet 12.5 mg (1/2 x 25 mg) PO QAM 30 08/24/24 09/04/24 Rx days #30 tabs midodrine 10 mg tablet 10 mg PO TID@0800,1200,1700 30 08/24/24 09/04/24 Rx days #90 tabs [id number]-mffme acid 0.4 1 tab PO QAM 30 days #30 tabs 08/24/24 09/04/24 Rx mg-lycopene 300 mcg-lutein 250 mcg tablet ([employer]) Past Med/Surg History Problem List (Updated 09/04/24 @ 19:31 by Verito Alfaro MD) Vitamin B12 deficiency Atrial fibrillation Acute respiratory failure Pleural effusion Bacteremia due to Clostridium species Gram-positive bacteremia Infection due to Clostridium septicum Closed femur fracture Hyponatremia Elevated troponin Endotracheally intubated Electrolyte disorder Abnormal LFTs Hypomagnesemia Pancytopenia Rhabdomyolysis Head injury Septic shock Necrotizing fasciitis Sepsis (Acute) Acute hypokalemia (Acute) Fasciitis (Acute) Pneumonia (Acute) Anticoagulated (Acute) Multiple falls (Acute) Generalized weakness (Acute) Fracture of proximal end of right femur Recurrent left inguinal hernia Left groin mass Multiple myeloma (Chronic) Follow[facility] by [facility], underwent recent testing advised by heme/onc for unintentional weight loss-see 10/24/22 note Macrocytic anemia 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 AC with rivaroxaban daily. Hyperlipidemia (Chronic) GERD (gastroesophageal reflux disease) (Chronic) Chronic venous stasis (Chronic) Medical History Weight loss, non-intentional pt states lost about 30lbs beginning of 2023 intentionally and then another almost 30unitentionally; d/w PCP and K[facility] Bolter who ordered colonosopy/EGD which he completed last month (was told were normal) and is awaiting further advice Squamous cell skin cancer s/p MOHS Hyperlipidemia GERD (gastroesophageal reflux disease) Chronic venous stasis DVT (deep venous thrombosis) per pt, had 1 DVT in each leg and after 2nd was put on Xarelto; no DVT since starting Xarelto Multiple myeloma follows with CCP; on lenalidomide daily Anemia macrocytic; pt states occasionally receives iron transfusios; follows with Heme Incarcerated left inguinal hernia History of COVID-26 August 2021 Generalized osteoarthritis Primarily of R knee. Intermittent corticosteroid injections per ortho. 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 Hx of removal of cyst left knee History of colonoscopy S/P cholecystectomy Family History Mother Cardiac disorder Myocardial infarction Brother Cardiac disorder Father Stroke Denies family history of Ovarian cancer Prostate cancer Breast cancer Colorectal cancer Social History Smoking Status: Unknown if ever smoked Tobacco Type: Cigarettes Age Started Using Tobacco: 18; Age Quit Using Tobacco: 21; packs per day: 1; Second Hand Exposure: No; Do You Dip or Chew Tobacco: No; Hx Alcohol Use: Yes Alcohol type: wine Alcohol Intake Frequency: 4 or More x per/Week Alcohol Intake Frequency Comment: 1 glass daily Hx Substance Use: No Preferred Language: Guinean Communication Ability: Impaired Visual Impairment: No Limitations Hearing Ability: Use of Hearing Aid Waxer Operator Required: No Beliefs That Will Affect Care: None marital status: / Current Living Situation: Alone current occupational status: retired How many Children do You have: 3 Feels Safe at Home: Yes Childhood Exposure to Second-Hand Smoke: Yes (parents did ) Diet: regular caffeine: Yes (drinks coffee 1-2 a day, green tea, iced tea ) Dental Care, Regularly: Yes Physical Activity Frequency: 5-6 Times per Week Seatbelt Use: always Sunscreen Use: Yes (tries to ) Assistive Devices: Cane, Walker and Wheelchair Review of Systems Review of Systems: All systems reviewed & are unremarkable except as noted in HPI & below Physical Exam Physical Exam: Last 24h vitals reviewed GEN: Sitting up in bed in the ED wearing high flow oxygen HEENT: pupils equal, sclerae anicteric, try MM RESP: tachypneic and moderately labored, with abdominal breathing and retractions, can speak in long phrases. Breath sounds are absent from the right hemithorax which is also dull to percussion. Right side is clear. no stridor CV: irregularly irregular with no murmur, EJ's are visible sitting upright ABD: soft/nt/nd +BT. question of fluid wave/ascites : Grissom catheter draining light yellow urine extremities: He has a significant amount of anasarca affecting his abdomen flanks and lower extremities. His left upper extremity is purpleish including forearm and hand however it is warm and he has intact radial and ulnar pulses. He has several surgical wounds on his right thigh which is still covered by wound VAC dressing, the VAC is not connected and the tubing is tied. I am unable to examine this early because he is wearing pajama pants and has severe anasarca of his thighs and is not mobile SKIN: warm and dry, no generalized rashes, extensive scattered ecchymoses NEURO: AOx person, place, and situation. Face symmetric, speech normal, moves 4 ext spontaneously and equally Results & Data Results & Data Vital Signs (Past 12 Hours) Vital Signs Temp Pulse Pulse Resp BP BP Pulse Ox 09/04/24 19:00 94 H 28 H 97/62 L 94 09/04/24 17:30 81 29 H 113/69 95 09/04/24 17:29 94 H 33 H 96 09/04/24 16:31 80 09/04/24 16:24 96 09/04/24 16:10 91 09/04/24 16:10 36.4 C L 85 24 131/59 L 91 09/04/24 16:10 O2 Del Method O2 Flow Rate FiO2 09/04/24 19:00 High Flow Nasal Cannula 09/04/24 17:30 High Flow Nasal Cannula 09/04/24 17:29 High Flow Nasal Cannula 50 30 09/04/24 16:31 09/04/24 16:24 Nasal Cannula 2 09/04/24 16:10 Room Air 09/04/24 16:10 Room Air 09/04/24 16:10 Nasal Cannula 2 Laboratory Results notable for white blood count of 5, hemoglobin of 10 which is increased from last discharge, platelets 169 INR is 1.4 Sodium and potassium are normal, no metabolic acidosis, BUN 25 and creatinine 0.8 calcium 8.3 and magnesium 1.9 total bilirubin is 0.8, had previously been mildly elevated. AST and ALT are normal, alk phos is 159 BNP is 328, no previous values High-sensitivity troponin is 11 Albumin 2.6 UA with 1+ blood and hyaline casts, 1+ protein no pyuria respiratory bio fire was negative Diagnostic Findings I personally reviewed the chest x-ray film which shows complete opacification of the right hemithorax I personally reviewed the chest CT films which show a large right pleural effusion filling the entire hemithorax, collapse of the right lung there is some mild tracheal deviation to the left. Trachea is patent and right and left mainstem bronchus are patent although the right one appears somewhat compressed ECG Additional Comments: personally reviewed EKG tracing which shows atrial fibrillation with a controlled ventricular rate, old septal infarct, I do not see any acute ischemic changes Code Status & VTE Plan VTE Prophylaxis Plan VTE Prophylaxis will be ordered: Yes PG Care Time/CCT Total # of Minutes Spent Total Time Spent with Patient: Total time spent is greater than 50% in coordination of care (as documented) at patient's floor/unit and/or counseling patient: Coding Level of Care Code 99092 INT INP/OBS CARE MIN Diagnoses Pleural effusion J90 Acute respiratory failure J96.00 Multiple myeloma C90.00 History of deep venous thrombosis Z86.718 Atrial fibrillation I48.91 Vitamin B12 deficiency E53.8
--- NOTE | 2024-09-04 20:42 | Communication Note ---
Date of Service: September 04, 2024 [facility] Supplemental Care / Communication Note Patient seen in ED C04. He is AAOx3. No acute distress. Hemodynamically stable. Saturating 94% on HFNC 50/0.3. He is pleasant and conversant. We discussed his current condition at length. He has been developing worsening shortness of breath for multiple days. + cough productive of thin white sputum. Trial of di uretics at [facility] without improvement. Last Xarelto dose was 09/04/2024 AM. Found to have large R pleural effusion with possible acute R 9 and 10 rib fractures. Patient denies recent fall. Exam Frail elderly gentleman, no acute distress MM dry, patient is mouth breather Irregularly irregular without murmur R lung extremely diminished with central air movement. L lung crackles Abdomen soft and nontender, bowel sounds present in all quadrants Mild peripheral edema, prior surgical site dressing is C/D/I Recommendations -Hold Xarelto and all thinners as you are doing -If patient develops clinical decompensation overnight, will re-evaluate for chest tube placement -Titrate HFNC to comfort and SpO2 92% -Avoid large volume IVF -NPO except meds, sips and chips -Palliative Medicine consultation this admission (D/w son. Patient's daughter will be in town this week from [place] and son feels it is a good time to meet and discuss with all present) -Discussed CPR with James. He understands that the likelihood of any sort of meaningful recovery after cardiac arrest is slim. He also understands that not doing CPR would not mean that we are not treating him aggressively. All care would be continued, but in the event of a cardiac arrest he would be allowed to pass peacefully. He is thinking about this and is amenable to further discussions. -Please place a routine Pulmonology consult I remain available overnight for continued questions or concerns. I will check in again on James once he is admitted. Coding Level of Care Code None
[2024-09-04] MEDS ORDERED: ALUMINUM/MAGNESIUM SUSP 30 ML UDC PO PRN (21:29)
[2024-09-04] MEDS ORDERED: MAGNESIUM HYDROXIDE SUSP 30 ML UDC PO PRN (21:29)
[2024-09-04] MEDS ORDERED: ONDANSETRON INJ 2 MG/ML 2 ML VIAL IV PRN (21:29)
[2024-09-04] MEDS ORDERED: POLYETHYLENE (MIRALAX) 17 GM PACK PO PRN (21:29)
[2024-09-04] MEDS: POTASSIUM CHLORIDE CRTAB 20 MEQ TABCR PO SCH (22:45)
--- NOTE | 2024-09-05 07:00 | Pulmonary Consultation ---
Date of Consultation September 05, 2024 Assessment & Plan (1) Large pleural effusion: (2) Rib fractures: Plan Impression: 89-year-old male with history of multiple myeloma recently admitted with necrotizing fasciitis. Admitted now with massive pleural effusion. He has rib fractures noted on his CT scan. He is anticoagulated. Differential would include malignant effusion although appears less likely given the rapid increase. Hemothorax is more likely given the rib fractures and his acute anticoagulation. Drainage is warranted. Recommendation: 1. Pleural effusion: Will proceed with 14 [place] chest tube placement. Will send pleural fluid for microbiologic as well as cytologic analysis and follow-up chest x-rays. 2. Hypoxemia: Suspect this should improve with drainage of the pleural effusion. 3. Rib fractures: Continue supportive management. Pain control. Given the possibility of discontinuation of next, would favor discontinuation of anticoagulation at this point in time and follow clinically. 4. Patient's son is requesting to meet with palliative care. Will defer to primary admitting service. Will follow the patient based on results of the pleural fluid. Thanks for the opportunity participating the care of this patient. Feel free to reach out to us with questions or concerns History of Present Illness Attending Physician: Verito Alfaro MD History of Present Illness Asked by hospitalist to evaluate this patient with massive pleural effusion. History is obtained from discussion with the patient as well as review of [facility] medical record. The patient is an 89-year-old frail patient with a history of multiple myeloma and atrial fibrillation. He is anticoagulated. He was recently admitted due to necrotizing fasciitis. He was in rehab. He was experiencing increasing shortness of breath and has had profound anasarca. He presented to the emergency room. Chest x-ray demonstrated opacification of the right hemithorax. This was confirmed on CT scan with no evidence of bronchial obstruction. Patient was placed on high flow nasal cannula. He had been taking DOAC in the outpatient setting for his A-fib. This morning the patient complains of continued shortness of breath with any significant physical activity. He is not coughing or expectorating any phlegm. He does not report any trauma but does have acute/subacute rib fractures noted on his CT scan. Allergies Allergy/AdvReac Type Severity Reaction Status Date / Time No Known Allergies Allergy Verified 08/17/24 17:04 Home Medications Medication Instructions Recorded Confirmed Type lenalidomide 25 mg capsule 25 mg PO QPM 10/23/21 09/04/24 History (Revlimid) pantoprazole 40 mg tablet,delayed 40 mg PO HS #90 tabs 01/13/24 09/04/24 Rx release potassium chloride 20 mEq 20 meq PO HS #90 tabs 01/21/24 09/04/24 Rx tablet,extended release rivaroxaban 20 mg tablet (Xarelto) 20 mg PO QPM #90 tabs 03/04/24 09/04/24 Rx ergocalciferol (vitamin D2) 1,250 1,250 mcg PO WK 05/21/24 09/04/24 History mcg (50,000 unit) capsule acyclovir 400 mg tablet 400 mg PO BID 08/17/24 09/04/24 History bortezomib 3.5 mg injection powder 0 mg IV WK 08/17/24 09/04/24 History for solution (Velcade) metoprolol tartrate 25 mg tablet 12.5 mg (1/2 x 25 mg) PO QAM 30 08/24/24 09/04/24 Rx days #30 tabs midodrine 10 mg tablet 10 mg PO TID@0800,1200,1700 30 08/24/24 09/04/24 Rx days #90 tabs [id number]-[id number]-xwxxg acid 0.4 1 tab PO QAM 30 days #30 tabs 08/24/24 09/04/24 Rx mg-lycopene 300 mcg-lutein 250 mcg tablet (Cerovite Senior) Patient History Medical History Weight loss, non-intentional pt states lost about 30lbs beginning of 2023 intentionally and then another almost 30unitentionally; d/w PCP and [facility] who ordered colonosopy/EGD which he completed last month (was told were normal) and is awaiting further advice Squamous cell skin cancer s/p MOHS Hyperlipidemia GERD (gastroesophageal reflux disease) Chronic venous stasis DVT (deep venous thrombosis) per pt, had 1 DVT in each leg and after 2nd was put on Xarelto; no DVT since starting Xarelto Multiple myeloma follows with CCP; on lenalidomide daily Anemia macrocytic; pt states occasionally receives iron transfusios; follows with Heme Incarcerated left inguinal hernia History of COVID-26 August 2021 Generalized osteoarthritis Primarily of R knee. Intermittent corticosteroid injections per ortho. 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 Hx of removal of cyst left knee History of colonoscopy S/P cholecystectomy Family History Mother Cardiac disorder Myocardial infarction Brother Cardiac disorder Father Stroke Denies family history of Ovarian cancer Prostate cancer Breast cancer Colorectal cancer Social History Smoking Status: Never smoker Tobacco Type: Cigarettes Age Started Using Tobacco: 18; Age Quit Using Tobacco: 21; packs per day: 1; Second Hand Exposure: No; Do You Dip or Chew Tobacco: No; Hx Alcohol Use: Yes Alcohol type: wine Alcohol Intake Frequency: 4 or More x per/Week Alcohol Intake Frequency Comment: 1 glass daily Hx Substance Use: No Preferred Language: Paraguayan Communication Ability: Effective Visual Impairment: No Limitations Hearing Ability: Use of Hearing Aid Financial Administrative Assistant Required: No Beliefs That Will Affect Care: None marital status: / Current Living Situation: Rehab Current Living Situation Comment: [facility] current occupational status: retired How many Children do You have: 3 Feels Safe at Home: Yes Childhood Exposure to Second-Hand Smoke: Yes (parents did ) Diet: regular caffeine: Yes (drinks coffee 1-2 a day, green tea, iced tea ) Dental Care, Regularly: Yes Physical Activity Frequency: 5-6 Times per Week Seatbelt Use: always Sunscreen Use: Yes (tries to ) Assistive Devices: Denture - Upper and Walker Review of Systems Review of Systems: Please refer to admission H&P Physical Exam Constitutional: + frail appearing; no acute distress Neck: trachea midline, no thyromegaly Respiratory: + labored breathing and + tachypneic Auscultation: + diminished lung sounds Decreased breath sounds with dullness to percussion right lung [place] Cardiovascular: RRR, no murmur, no edema Gastrointestinal (Abdomen): normal bowel sounds, soft, nontender, no hepatosplenomegaly Musculoskeletal: Extremities: extremities normal to inspection Skin: no rashes, warm and dry Neurologic: Nonfocal exam Lymphatic: no cervical lymphadenopathy Results & Data Results & Data Vital Signs (Past 12 Hours) Vital Signs Temp Pulse Pulse Pulse Resp BP BP 09/05/24 04:30 36.5 C 89 18 09/05/24 03:05 85 22 09/04/24 23:52 36.5 C 94 H 18 09/04/24 22:52 94 H 18 09/04/24 22:20 85 09/04/24 21:29 100 H 09/04/24 21:29 09/04/24 21:10 09/04/24 21:10 36.7 C 86 24 138/47 L 09/04/24 20:33 103 H 19 92/48 L 09/04/24 20:28 90 25 H 97/54 L 09/04/24 20:12 86 25 H 09/04/24 20:00 114/59 L 09/04/24 19:54 94 H 20 09/04/24 19:36 89 28 H 09/04/24 19:30 99/53 L 09/04/24 19:24 84 09/04/24 19:00 94 H 28 H BP Pulse Ox Pulse Ox O2 Del Method O2 Del Method O2 Flow Rate FiO2 09/05/24 04:30 96/58 L 93 High Flow Nasal Cannula 09/05/24 03:05 94 High Flow Nasal Cannula 50 30 09/04/24 23:52 103/64 94 High Flow Nasal Cannula 09/04/24 22:52 96 High Flow Nasal Cannula 50 30 09/04/24 22:20 09/04/24 21:29 09/04/24 21:29 92 High Flow Nasal Cannula 09/04/24 21:10 High Flow Nasal Cannula 09/04/24 21:10 93 High Flow Nasal Cannula 50 30 09/04/24 20:33 94 High Flow Nasal Cannula 09/04/24 20:28 93 High Flow Nasal Cannula 06/28/25 20:12 94 High Flow Nasal Cannula 09/04/24 20:00 93 High Flow Nasal Cannula 09/04/24 19:54 95 High Flow Nasal Cannula 09/04/24 19:36 93 High Flow Nasal Cannula 50 30 09/04/24 19:30 09/04/24 19:24 95 High Flow Nasal Cannula 09/04/24 19:00 97/62 L 94 High Flow Nasal Cannula Critical Care Results & Data Vital Signs (Past 12 Hours) Vital Signs Temp Pulse Pulse Pulse Resp BP BP 09/05/24 04:30 36.5 C 89 18 09/05/24 03:05 85 22 09/04/24 23:52 36.5 C 94 H 18 09/04/24 22:52 94 H 18 09/04/24 22:20 85 09/04/24 21:29 100 H 09/04/24 21:29 09/04/24 21:10 09/04/24 21:10 36.7 C 86 24 138/47 L 09/04/24 20:33 103 H 19 92/48 L 09/04/24 20:28 90 25 H 97/54 L 09/04/24 20:12 86 25 H 09/04/24 20:00 114/59 L 09/04/24 19:54 94 H 20 09/04/24 19:36 89 28 H 09/04/24 19:30 99/53 L 09/04/24 19:24 84 09/04/24 19:00 94 H 28 H BP Pulse Ox Pulse Ox O2 Del Method O2 Del Method O2 Flow Rate FiO2 09/05/24 04:30 96/58 L 93 High Flow Nasal Cannula 09/05/24 03:05 94 High Flow Nasal Cannula 50 30 09/04/24 23:52 103/64 94 High Flow Nasal Cannula 09/04/24 22:52 96 High Flow Nasal Cannula 50 30 09/04/24 22:20 09/04/24 21:29 09/04/24 21:29 92 High Flow Nasal Cannula 09/04/24 21:10 High Flow Nasal Cannula 09/04/24 21:10 93 High Flow Nasal Cannula 50 30 09/04/24 20:33 94 High Flow Nasal Cannula 09/04/24 20:28 93 High Flow Nasal Cannula 09/04/24 20:12 94 High Flow Nasal Cannula 09/04/24 20:00 93 High Flow Nasal Cannula 09/04/24 19:54 95 High Flow Nasal Cannula 09/04/24 19:36 93 High Flow Nasal Cannula 50 30 09/04/24 19:30 09/04/24 19:24 95 High Flow Nasal Cannula 09/04/24 19:00 97/62 L 94 High Flow Nasal Cannula Lab & Micro Results (Past 24 Hours) RBC 3.00 M/uL (4.70-6.10) L 09/04/24 WBC 5.19 K/ul (4.8-10.8) 09/04/24 Hgb 10.1 g/dl (14.0-18.0) L 09/04/24 Hct 31.8 % (42.0-52.0) L 09/04/24 MCV 106.0 fL (80.0-100.0) H 09/04/24 MCH 33.7 pg (25.0-34.0) 09/04/24 MCHC 31.8 g/dL (32.0-36.0) L 09/04/24 RDW Standard Deviation 66.3 fL (36.4-46.3) H 09/04/24 RDW Coefficient of Variation 17.2 % (11.5-14.5) H 09/04/24 Plt Count 169 K/uL (130-400) 09/04/24 MPV 11.1 fL (9.4-12.4) 09/04/24 Neutrophils (%) (Auto) 75.3 % 09/04/24 Lymphocytes (%) (Auto) 8.9 % 09/04/24 Monocytes # (Auto) 0.79 K/uL (0.11-0.59) H 09/04/24 Eosinophils # (Auto) 0.01 K/uL (0.00-0.50) 09/04/24 Immature Granulocyte % (Auto) 0.2 % 09/04/24 Neutrophils # (Auto) 3.91 K/uL (1.40-6.50) 09/04/24 Lymphocytes # (Auto) 0.46 K/uL (1.20-3.40) L 09/04/24 Monocytes # (Auto) 0.79 K/uL (0.11-0.59) H 09/04/24 Eosinophils # (Auto) 0.01 K/uL (0.00-0.50) 09/04/24 Basophils # (Auto) 0.01 K/uL (0.00-0.20) 09/04/24 Immature Granulocyte # (Auto) 0.01 K/uL (0.01-0.20) 5 Na 139 mmol/L (136-145) 09/04/24 K 3.6 mmol/L (3.5-5.1) 09/04/24 Cl 101 mmol/L (98-107) 09/04/24 CO2 32 mmol/L (21-32) 09/04/24 Anion Gap 6 (3-11) 09/04/24 BUN 25 mg/dl (6-23) H 09/04/24 Creatinine 0.80 mg/dl (0.6-1.4) 09/04/24 BUN/Creatinine Ratio 31.3 (10-20) H 09/04/24 Glu 190 mg/dl (70-99(Fasting)) H 09/04/24 Ca 8.3 mg/dl (8.6-10.3) L 09/04/24 Total Bilirubin 0.8 mg/dl (0.2-1.0) 09/04/24 AST 15 U/L (13-39) 09/04/24 ALT 13 U/L (7-52) 09/04/24 Alkaline Phosphatase 159 U/L (34-104) H 09/04/24 TP 6.2 gm/dl (6.0-8.3) 09/04/24 Albumin 2.6 gm/dl (3.4-5.0) L 09/04/24 Globulin 3.6 gm/dl (2.5-4.0) 09/04/24 Albumin/Globulin Ratio 0.7 (0.9-2) L 09/04/24 Mg 1.9 mg/dl (1.7-2.4) 09/04/24 16:36 Calcium Level 8.3 mg/dl (8.6-10.3) L 09/04/24 16:36 Prothromb Time International Ratio 1.4 (0.9-1.1) H 09/04/24 16 :36 Diagnostic Findings (Past 24 Hours) Chest X-Ray 09/04/24 16:20 Chest radiograph, one view History: Dyspnea Comparison: 08/20/2024 Findings/impression: Single AP view of the chest performed. Complete opacification of the right hemithorax, consistent with enlarged pleural effusion from what was seen on prior. A smaller left pleural effusion is also appreciated. No pneumothorax. The cardiac silhouette is partially obscured. The central airway is midline. Right shoulder severe degenerative change. Degenerative changes throughout the thoracic spine. Inferolateral right rib fractures again seen as on prior. Electronically signed by Luiz Carrillo 09-04-2024 5:[address] 09/04/24 17:33 CT chest without contrast History: Shortness of breath Comparison: None Technique: Helical CT imaging of the chest performed without IV contrast Dose reduction techniques were achieved by using automatic exposure control and/or adjustment of mA and/or kV according to patient size and/or use of iterative reconstruction technique. Findings: A large right pleural effusion, occupies essentially the entire right hemithorax, compressing of the right lung. There is a small left pleural effusion. No pneumothorax. Heart size is normal. The thoracic aorta is normal in size. The pulmonary artery is normal in size. No significant pericardial effusion. No suspicious lymphadenopathy in the chest. The central airway is clear. Limited visualized upper abdomen. Posterior right-sided rib fractures, rib 10 with healing callus posteriorly, and laterally is a displaced fracture without healing callus. Posterior right rib 11 fracture with healing callus. Displaced lateral right rib 9 fracture without healing callus. Diffuse anterior flowing degenerative osteophytes of the thoracic spine. Impression: Large right pleural effusion occupying the hemithorax, and compressing the right lung. Small left pleural effusion. Right ribs 9 and 10, contain displaced rib fractures, which may be acute. There is also healing callus associated with a posterior right rib 11, and another portion of the posterior right rib 10, suggesting healing fractures. Electronically signed by Luiz Carrillo 09-04-2024 6:41 PM I & O Totals 24 Hours 09/03/24 09/04/24 09/05/24 06:59 06:59 06:59 Output Total 975 / 975 Balance -975 / -975 Cumulative 09/04/24 15:56 thru 09/05/24 04:33 Output Total 975 Balance -975 RT Ventilator Mngmt (Last Documented) Ventilator Ordered Settings Respiratory Rate 18 09/05/24 04:30 Fraction of Inspired Oxygen 30 09/05/24 03:05 Ventilator - PT Measurements Respiratory Rate 18 PG Care Time/CCT Total # of Minutes Spent Total Time Spent with Patient: Total time spent is greater than 50% in coordination of care (as documented) at patient's floor/unit and/or counseling patient: Coding Level of Care Code 25537 INT INP/OBS CARE 2/55MIN Diagnoses Large pleural effusion J90 Rib fractures S22.49XA
--- NOTE | 2024-09-05 07:04 | Procedure Note ---
Procedure Note Date of Service September 05, 2024 Procedure: 14 [place]amese pigtail catheter placement right posterior Indication: Massive pleural effusion Consent risk and benefits were discussed with the patient. He agreed. Written consent was verified prior to commencement of the procedure. [employer] Tower Controller Dr. Chino Estimated blood loss: Less than 5 mL Anesthesia: 10 mL 1% lidocaine without epinephrine locally. Procedure: Patient was admitted with a massive pleural effusion. He has rib fractures and the possibility of hemothorax exists. Recommended pigtail catheter drainage. The patient was placed in a semiupright seated position. Limited thoracic ultrasound was performed. A large right-sided effusion was identified with no significant effusion on the left. Site appropriate for chest tube placement was marked in the inferior posterior aspect of the right chest. A sterile field was established by cleaning was cleaned with chlorhexidine and using a sterile drape. Skin and subcutaneous tissues were anesthetized using lidocaine. Under direct ultrasound visualization, is able to aspirate bloody fluid with the finder needle. A skin shea was made. An 18-gauge needle was then advanced on a similar line until bloody fluid was obtained. The syringe was disconnected leaving the needle in place. A wire was passed through the needle and then the needle was withdrawn leaving the wire in the pleural space. A 14 [place]amese dilator was then passed over the wire to dilate the skin and soft tissues. This passed with ease. The dilator was removed leaving the wire in place. A 14 [place] pigtail catheter was then loaded on a straightening catheter and advanced over the wire into the pleural space. The straightening catheter and wire were removed leaving the pigtail catheter in place. The catheter was locked in place. A three-way stopcock was attached. The tube was attached to a Pleur- evac with gravity and about 400 cc of bloody fluid was drained. Specimens were collected and sent for microbiologic as well as cytologic analysis. The skater fixation system as well as 2 Tegaderms were used to secure the catheter to the chest wall. The patient tolerated the procedure well. [facility] [place] Codes (Charges) Pulmonary/Thoracic Procedure 1: Pulmonary and Thoracic: 34911 Tube thoracostomy Procedure 2: Pulmonary and Thoracic: 05982 US, Chest, real time with imaging documentation Coding CPT Codes Pulmonary/Thoracic - Pulmonary and Thoracic: 27479 Tube thoracostomy ([id number]) Pulmonary/Thoracic - Pulmonary and Thoracic: 36474 US, Chest, real time with imaging documentation ([id number]) Additional Codes Date of Service (PG.SURGERY)
[2024-09-05 07:29] LABS: Appearance Pleural Fluid Bloody; Color Pleural Fluid Red; RBC Pleural Fluid Auto 723000 /uL; Source Pleural Fluid Right Lung; WBC Pleural Fluid Auto 3125 /uL
[2024-09-05 07:37] LABS: Hematocrit (blood only) 27.9 % (42.0-52.0); Hemoglobin 9.1 g/dl (14.0-18.0); Mean Corpuscular Hemoglobin 34.1 pg (25.0-34.0); Mean Corpuscular Volume 104.5 fL (80.0-100.0); Platelet Count 167 K/uL (130-400); RDW Standard Deviation 65.5 fL (36.4-46.3); Red Blood Count 2.67 M/uL (4.70-6.10); White Blood Count 3.60 K/ul (4.8-10.8)
--- NOTE | 2024-09-05 07:39 | Hospitalist Progress Note ---
Date of Service September 05, 2024 Assessment & Plan (1) Pleural effusion: (2) Acute respiratory failure: (3) Multiple myeloma: (4) Atrial fibrillation: Plan 89-year-old man with multiple myeloma and recently diagnosed atrial fibrillation who came in with 2 days of increasing shortness of breath at rest. He had a femur fracture this April. He was recently hospitalized from 08/17 - 08/24. during that admission he was critically ill with necrotizing fasciitis of his right thigh from Clostridium and he was bacteremic. He had debridement, treatment with antibiotics, and was discharged to [facility] for rehab with wound VAC. He should have completed his course of Bactrim 4 days ago as advised by ID. he is admitted with highly symptomatic large right pleural effusion # large right pleural effusion feeling almost entire right hemithorax causing acute respiratory failure # right rib fractures - acuity uncertain, not all have callus - Consulted pulmonary. appreciate chest tube placement 09/[address] Chino. Recent? rib fractures, on xarelto. Possibly pneumonia last admission. 400 mL bloody output initially, 2L by 9am. Gram stain neg, bloody, Cx pending, cytology pending. Exudative by Light's criteria, added on serum LDH - continue HFO2 - suspect can do to NC today - ABG or VBG with any change in status or alteration in mental status - cont holding Xarelto today - no antibiotics at this time. sputum culture prelim - selena. afebrile overnight - has been baseline hypotensive recently, continue midodrine - no diuretics today, large chest tube output - CBC and BMP this am reviewed - Hg down a little to 9.1 but still better than last discharge. leukopenic 3.6, Plt normal. Cr 0.7, replacing mild hypokalemia of 3.4 with po - AM CBC and BMP # atrial fibrillation and history of DVT on xarelto - xarelto held - last dose AM 09/04 - continue metoprolol - SCD's # recent septic shock from Clostridium septicum R thigh necrotizing fasciitis and bacteremia - continue wound care, consulted WON to continue wound vac, currently wet-->dry - completed antibiotics # multiple myeloma - followed by Dr. Kingsley - recently on velcade and revlimid - held - leukopenia, platelets normal, anemia stable # malnutrition - sarcopenia, bitemporal wasting, frail, albumin 2.5. Down 1-2 kg since April but much greater body mass loss than that (currently has 15+ kg of anasarca) - will benefit from mirtazapine to stimulate appetite - hold off until more well and fully alert - consult RD # B12 deficiency, macrocytosis. Recent B12 level in the 100s. daily IM B12 x 7 then weekly # DVT ppx - SCD for now, recent dose of xarelto He has been thinking about code status. Remains full code for now. Family requested palliative care conference - will obtain Friday. Son James is local and daughter will be in town from [place] this upcoming week. Has been critically ill this month, frail and elderly, currently nonambulatory (has been able to stand and transfer to while at [facility]). Significant functional decline since femur fracture 04/2024. Significant chance that he won't regain functional status enough to resume aggressive myeloma treatment. Admission and Anticipated Discharge Date Admission Date: September 04, 2024 Subjective Remained on HFO2 overnight. Afebrile. Hypotensive but bp/MAP trended up overnight, recent MAPS >=70 R chest tube placed 7am, 400 mL output bloody fluid sent for analysis He denies chest pain, less short of breath, [place] and speech a little garbled this AM but mostly understandable Has already filled up 2L from chest tube as of 9AM. Drainage remains bloody, though not indu blood Physical Exam 2 Physical Exam: Last 24h vitals reviewed GEN: up in bed, frail appearing, HFO2 cannula HEENT: pupils equal, sclerae anicteric, dry MM RESP: WOB much more comfortable, Rt chest tube with bloody output, some increase in breath sounds on R but mostly transmitted upper airway sounds, clear on L CV: irregularly irregular with no murmur, EJ's are visible ABD: soft/nt/nd +BT. question of fluid wave/ascites : Grissom catheter draining light yellow urine extremities: He has a significant amount of anasarca affecting his abdomen flanks and lower extremities. 4 ext wwp SKIN: warm and dry, no generalized rashes, extensive scattered ecchymoses. LUE especially is purplish NEURO: Ox person, place, and basic situation, mildly lethargic and speech slightly garbled. Face symmetric, speech normal, moves 4 ext spontaneously and equally Results & Data Results & Data Vital Signs (Past 12 Hours) Vital Signs Temp Pulse Pulse Pulse Resp BP BP 09/05/24 04:30 36.5 C 89 18 09/05/24 03:05 85 22 09/04/24 23:52 36.5 C 94 H 18 09/04/24 22:52 94 H 18 09/04/24 22:20 85 09/04/24 21:29 100 H 09/04/24 21:29 09/04/24 21:10 09/04/24 21:10 36.7 C 86 24 138/47 L 09/04/24 20:33 103 H 19 92/48 L 09/04/24 20:28 90 25 H 97/54 L 09/04/24 20:12 86 25 H 09/04/24 20:00 114/59 L 09/04/24 19:54 94 H 20 09/04/24 19:36 89 28 H 09/04/24 19:30 99/53 L BP Pulse Ox Pulse Ox O2 Del Method O2 Del Method O2 Flow Rate FiO2 09/05/24 04:30 96/58 L 93 High Flow Nasal Cannula 09/05/24 03:05 94 High Flow Nasal Cannula 50 30 09/04/24 23:52 103/64 94 High Flow Nasal Cannula 09/04/24 22:52 96 High Flow Nasal Cannula 50 30 09/04/24 22:20 09/04/24 21:29 09/04/24 21:29 92 High Flow Nasal Cannula 09/04/24 21:10 High Flow Nasal Cannula 09/04/24 21:10 93 High Flow Nasal Cannula 50 30 09/04/24 20:33 94 High Flow Nasal Cannula 09/04/24 20:28 93 High Flow Nasal Cannula 09/04/24 20:12 94 High Flow Nasal Cannula 09/04/24 20:00 93 High Flow Nasal Cannula 09/04/24 19:54 95 High Flow Nasal Cannula 09/04/24 19:36 93 High Flow Nasal Cannula 50 30 09/04/24 19:30 Laboratory Results Laboratory Tests 09/04/24 09/05/24 09/05/24 23:05 Unknown Unknown Pleural pH 7.35 Pleural WBC (Auto) 3125 Pleural RBC (Auto) 014488 Pleural Total Protein 3.2 Pleural LDH 350 Pleural Glucose 92 Nasal Screen MRSA (PCR) Negative Pleural fluid gram stain negative for organisms Sputum with moderate normal selena, pending 09/05/24 07:15 09/05/24 07:15 Diagnostic Findings Personally reviewed CXR from this AM - R hemithorax opacified, R chest tube. Trachea midline. Report pending PG Care Time/CCT Total # of Minutes Spent Total Time Spent with Patient: Total time spent is greater than 50% in coordination of care (as documented) at patient's floor/unit and/or counseling patient: Coding Level of Care Code 97564 SUB INP/OBS CARE 3/50MIN Diagnoses Pleural effusion J90 Acute respiratory failure J96.00 Multiple myeloma C90.00 Atrial fibrillation I48.91
[2024-09-05 07:51] LABS: Alanine Aminotransferase 12.0 U/L (7-52); Albumin Globulin Ratio 0.8 (0.9-2); Alkaline Phosphatase 131.0 U/L (34-104); Anion Gap 5.0 (3-11); Bilirubin,Total 0.9 mg/dl (0.2-1.0); Blood Urea Nitrogen 25.0 mg/dl (6-23); Calcium 8.1 mg/dl (8.6-10.3); Carbon Dioxide 34.0 mmol/L (21-32); Chloride 102.0 mmol/L (98-107); Creatinine Clr Calc Pharmacy 76.3 ml/min; Globulin 3.1 gm/dl (2.5-4.0); Glucose 141.0 mg/dl (70-99(Fasting)); Potassium 3.4 mmol/L (3.5-5.1); Sodium 141.0 mmol/L (136-145); Total Protein 5.6 gm/dl (6.0-8.3)
[2024-09-05] MEDS: METOPROLOL TARTRATE 25 MG TAB PO SCH (08:10)
[2024-09-05] MEDS: MIDODRINE HCL 10 MG TAB PO SCH (08:10)
[2024-09-05] MEDS: CYANOCOBALAMIN 1000 MCG/ML VIAL IM SCH (08:10)
[2024-09-05 08:14] LABS: Basophils, Fluid 2 %; Lymphocytes, Fluid 11 %; Mono,Macrophage,Mesothelial 3 %; Neutrophils, Fluid 84 %
--- NOTE | 2024-09-05 08:28 | XRay Report ---
EXAM: XR chest 1V portable CLINICAL HISTORY: S/P Thoracentesis TECHNIQUE: Radiograph of chest was acquired. 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 Minimal blunting of left costophrenic angle with hazy left lower zone opacity. Rest of the left lungs is clear and well-expanded. The cardiomediastinal silhouette is within normal limits. No acute osseous abnormality. Right intercostal drainage tube seen in situ. IMPRESSION: 1. Complete white out of right lung. (Minimal decrease in haziness compared to previous radiograph)-interval placemen of tube. 2. Minimal blunting of left costophrenic angle with hazy left lower zone opacity. (Stable) Electronically signed by Tyler Mendoza 09-05-2024 08:28 AM
[2024-09-05] MEDS: POTASSIUM CHLORIDE CRTAB 20 MEQ TABCR PO ONE (10:13)
--- NOTE | 2024-09-05 11:55 | Electrocardiogram Report ---
Test Reason : Blood Pressure : */* mmHG Vent. Rate : 78 BPM Atrial Rate : * BPM P-R Int : * ms QRS Dur : 84 ms QT Int : 358 ms P-R-T Axes : * 77 20 degrees QTcB Int : 408 ms Atrial fibrillation with premature ventricular or aberrantly conducted complexes Abnormal ECG When compared with ECG of 20-Aug-2024 01:43, ST now depressed in Anterior leads Nonspecific T wave abnormality now evident in Anterior leads QT has shortened Confirmed by Luiz Crowe ([id number]) on 09/05/2024 11:55:08 AM Referred By: REFERRED SELF Confirmed By: Luiz Crowe
[2024-09-05] MEDS ORDERED: ALBUMIN 5% 500 ML IV ONE (15:18)
[2024-09-05] MEDS: ALBUMIN 5% 500 ML IV ONE (17:07)
[2024-09-06 06:47] LABS: Hematocrit (blood only) 23.3 % (42.0-52.0); Hemoglobin 7.4 g/dl (14.0-18.0); Mean Corpuscular Hemoglobin 33.2 pg (25.0-34.0); Mean Corpuscular Volume 104.5 fL (80.0-100.0); Platelet Count 133 K/uL (130-400); RDW Standard Deviation 66.0 fL (36.4-46.3); Red Blood Count 2.23 M/uL (4.70-6.10); White Blood Count 2.84 K/ul (4.8-10.8)
[2024-09-06 07:08] LABS: Anion Gap 2.0 (3-11); Blood Urea Nitrogen 21.0 mg/dl (6-23); Calcium 7.6 mg/dl (8.6-10.3); Carbon Dioxide 34.0 mmol/L (21-32); Chloride 105.0 mmol/L (98-107); Creatinine Clr Calc Pharmacy 96.4 ml/min; Glucose 116.0 mg/dl (70-99(Fasting)); Potassium 3.5 mmol/L (3.5-5.1); Sodium 141.0 mmol/L (136-145)
--- NOTE | 2024-09-06 08:37 | Palliative Care Consultation ---
Date of Consultation September 06, 2024 History of Present Illness Reason for Consultation: goals of care Requesting Physician: Verito Alfaro MD Attending Physician: Verito Alfaro MD History of Present Illness 89-year-old man with multiple myeloma and atrial fibrillation who came in with 2 days of increasing shortness of breath at rest and productive cough without hemoptysis. 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 He had debridement, treatment with antibiotics, and was discharged to [facility] for rehab. (completed course of Bactrim 4 days ago). He has severe anasarca since his previous hospitalization which he says has been improving a lot. Allergies Allergy/AdvReac Type Severity Reaction Status Date / Time No Known Allergies Allergy Verified 08/17/24 17:04 Home Medications Medication Instructions Recorded Confirmed Type lenalidomide 25 mg capsule 25 mg PO QPM 10/23/21 09/04/24 History (Revlimid) pantoprazole 40 mg tablet,delayed 40 mg PO HS #90 tabs 01/13/24 09/04/24 Rx release potassium chloride 20 mEq 20 meq PO HS #90 tabs 01/21/24 09/04/24 Rx tablet,extended release rivaroxaban 20 mg tablet (Xarelto) 20 mg PO QPM #90 tabs 03/04/24 09/04/24 Rx ergocalciferol (vitamin D2) 1,250 1,250 mcg PO WK 05/21/24 09/04/24 History mcg (50,000 unit) capsule acyclovir 400 mg tablet 400 mg PO BID 08/17/24 09/04/24 History bortezomib 3.5 mg injection powder 0 mg IV WK 08/17/24 09/04/24 History for solution (Velcade) metoprolol tartrate 25 mg tablet 12.5 mg (1/2 x 25 mg) PO QAM 30 08/24/24 09/04/24 Rx days #30 tabs midodrine 10 mg tablet 10 mg PO TID@0800,1200,1700 30 08/24/24 09/04/24 Rx days #90 tabs [id number] acid 0.4 1 tab PO QAM 30 days #30 tabs 08/24/24 09/04/24 Rx mg-lycopene 300 mcg-lutein 250 mcg tablet (Cerovite Senior) Patient History Medical History Weight loss, non-intentional pt states lost about 30lbs beginning of 2023 intentionally and then another almost 30unitentionally; 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 Intermittent corticosteroid injections per ortho. Surgical History History of incision and drainage (08/17/24) Incision, drainage and debridement of Necrotizing Soft Tissue Infection, Right Lower Extremity [id number],(Right) - Jaden Menendez DO S/P left inguinal hernia repair (12/05/22) Left Open Inguinal Hernia Repair with Mesh(Left) - Jered Arriaga DO: GA: LMA#5 History of cataract surgery bilat History of tonsillectomy H/O inguinal hernia repair Right Open Inguinal Hernia Repair with Mesh(Right) - Jered Arriaga DO 11-01-21 History of Mohs micrographic surgery for squamous cell carcinoma in situ (SCCIS) of skin Hx of removal of cyst left knee History of colonoscopy S/P cholecystectomy Family History Mother Cardiac disorder Myocardial infarction Brother Cardiac disorder Father Stroke Denies family history of Ovarian cancer Prostate cancer Breast cancer Colorectal cancer Social History Smoking Status: Never smoker Tobacco Type: Cigarettes Age Started Using Tobacco: 18; Age Quit Using Tobacco: 21; packs per day: 1; Second Hand Exposure: No; Do You Dip or Chew Tobacco: No; Hx Alcohol Use: Yes Alcohol type: wine Alcohol Intake Frequency: 4 or More x per/Week Alcohol Intake Frequency Comment: 1 glass daily Hx Substance Use: No Preferred Language: Bolivian Communication Ability: Effective Visual Impairment: No Limitations Hearing Ability: Use of Hearing Aid 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 Beliefs That Will Affect Care: None marital status: / Current Living Situation: Rehab Current Living Situation Comment: [facility] current occupational status: retired How many Children do You have: 3 Feels Safe at Home: Yes Childhood Exposure to Second-Hand Smoke: Yes (parents did ) Diet: regular caffeine: Yes (drinks coffee 1-2 a day, green tea, iced tea ) Dental Care, Regularly: Yes Physical Activity Frequency: 5-6 Times per Week Seatbelt Use: always Sunscreen Use: Yes (tries to ) Assistive Devices: Denture - Upper and Walker Results & Data Vital Signs (Past 12 Hours) Vital Signs Temp Pulse Pulse Resp BP Pulse Ox Pulse Ox 09/06/24 07:50 09/06/24 07:00 36.3 C L 72 18 86/53 L 97 09/06/24 03:25 36.6 C 78 18 93/60 L 96 09/05/24 23:52 36.5 C 81 19 98/57 L 96 09/05/24 22:06 73 09/05/24 21:29 94 O2 Del Method O2 Del Method O2 Flow Rate 09/06/24 07:50 Room Air, Nasal Cannula 1 09/06/24 07:00 Nasal Cannula 2 09/06/24 03:25 Nasal Cannula 1 09/05/24 23:52 Room Air 09/05/24 22:06 09/05/24 21:29 Room Air Laboratory Results Abnormal lab results 09/06/24 Range/Units 06:18 WBC 2.84 L (4.8-10.8) K/ul RBC 2.23 L (4.70-6.10) M/uL Hgb 7.4 L (14.0-18.0) g/dl Hct 23.3 L (42.0-52.0) % MCV 104.5 H (80.0-100.0) fL MCHC 31.8 L (32.0-36.0) g/dL RDW Std Deviation 66.0 H (36.4-46.3) fL RDW Coeff of Ezequiel 17.2 H (11.5-14.5) % Carbon Dioxide 34 H (21-32) mmol/L Anion Gap 2 L (3-11) Creatinine 0.57 L (0.6-1.4) mg/dl BUN/Creatinine Ratio 36.8 H (10-20) Glucose 116 H (70-99(Fasting)) mg/dl Calcium 7.6 L (8.6-10.3) mg/dl Diagnostic Findings Chest CT 09/04/24 17:33 CT chest without contrast History: Shortness of breath Comparison: None Technique: Helical CT imaging of the chest performed without IV contrast Dose reduction techniques were achieved by using automatic exposure control and/or adjustment of mA and/or kV according to patient size and/or use of iterative reconstruction technique. Findings: A large right pleural effusion, occupies essentially the entire right hemithorax, compressing of the right lung. There is a small left pleural effusion. No pneumothorax. Heart size is normal. The thoracic aorta is normal in size. The pulmonary artery is normal in size. No significant pericardial effusion. No suspicious lymphadenopathy in the chest. The central airway is clear. Limited visualized upper abdomen. Posterior right-sided rib fractures, rib 10 with healing callus posteriorly, and laterally is a displaced fracture without healing callus. Posterior right rib 11 fracture with healing callus. Displaced lateral right rib 9 fracture without healing callus. Diffuse anterior flowing degenerative osteophytes of the thoracic spine. Impression: Large right pleural effusion occupying the hemithorax, and compressing the right lung. Small left pleural effusion. Right ribs 9 and 10, contain displaced rib fractures, which may be acute. There is also healing callus associated with a posterior right rib 11, and another portion of the posterior right rib 10, suggesting healing fractures. Electronically signed by Luiz Carrillo 09-04-2024 6:41 PM Medications Administered Current Inpatient Medications Acetaminophen (Acetaminophen 325 Mg Tab) 650 mg PO Q4H PRN PRN Reason: Pain or Fever Stop: 10/04/24 21:28 Al Hydrox/Mg Hydrox/Simethicone (Aluminum/Magnesium Susp 30 Ml Udc) 15 ml PO Q4H PRN PRN Reason: Dyspepsia Stop: 10/04/24 21:28 Cyanocobalamin (Cyanocobalamin 1000 Mcg/Ml Vial) 1,000 mcg IM QAM JOHN Stop: 09/11/24 09:01 Last Admin: 09/06/24 07:35 Dose: 1,000 mcg Magnesium Hydroxide (Magnesium Hydroxide Susp 30 Ml Udc) 30 ml PO Q12H PRN PRN Reason: Constipation Stop: 10/04/24 21:28 Melatonin (Melatonin 3 Mg Tab) 3 mg PO HS PRN PRN Reason: Sleep Stop: 10/04/24 21:28 Metoprolol Tartrate (Metoprolol Tartrate 25 Mg Tab) 12.5 mg PO QAM [facility] Stop: 10/05/24 08:59 Last Admin: 09/05/24 08:10 Dose: 12.5 mg Midodrine (Midodrine Hcl 10 Mg Tab) 10 mg PO TID@0800,1200,1700 [facility] Stop: 10/05/24 07:59 Last Admin: 09/06/24 07:34 Dose: 10 mg Ondansetron HCl (Ondansetron Inj 2 Mg/Ml 2 Ml Vial) 4 mg IV Q6H PRN PRN Reason: Nausea Stop: 10/04/24 21:28 Pantoprazole Sodium (Pantoprazole 40 Mg Tab) 40 mg PO HS [facility] Stop: 10/04/24 21:28 Last Admin: 09/05/24 20:46 Dose: 40 mg Polyethylene Glycol (Polyethylene (Miralax) 17 Gm Pack) 17 gm PO DAILY PRN PRN Reason: Constipation Stop: 10/04/24 21:28 Potassium Chloride (Potassium Chloride Crtab 20 Meq Tabcr) 20 meq PO HS [facility] Stop: 10/04/24 21:28 Last Admin: 09/05/24 20:45 Dose: 20 meq PG Care Time/CCT Total # of Minutes Spent Total Time Spent with Patient: Total time spent is greater than 50% in coordination of care (as documented) at patient's floor/unit and/or counseling patient: Coding
--- NOTE | 2024-09-06 08:59 | XRay Report ---
EXAM: XR chest 1V portable CLINICAL HISTORY: HEMOTHORAX. TECHNIQUE: An X-ray image of the chest is obtained in AP projection. COMPARISON: 09/05/2024. FINDINGS: Pulmonary Parenchyma: Chest tube seen in situ, in the right lower hemithorax, in right 8th intercostal space. Interval regressed, homogeneous opacification of the right lower zone obscuring the right costophrenic recess. Minimal pleural reaction right costophrenic recess. Heart and Mediastinum: Cardiomegaly with bilateral hilar congestion. No mediastinal widening or masses. No hilar or mediastinal lymphadenopathy. Bony Thorax: Bony thorax appears intact without fractures or deformities. Soft Tissues: Soft tissues overlying the chest wall are unremarkable. IMPRESSION: 1. Chest tube seen in situ. 2. Interval regressed, homogeneous opacification of the right lower zone obscuring the right costophrenic recess. Mild pleural effusion. 3. Small/minimal pleural reaction at the left costophrenic recess. Minimal left pleural effusion. 4. Cardiomegaly with bilateral hilar congestion. 5. Comparing the previous x-ray dated 09/05/2024, there is significant regressed right pleural effusion. Electronically signed by Bc Garcia 09-06-2024 08:58 AM
--- NOTE | 2024-09-06 09:57 | Palliative Care Consultation ---
Date of Consultation September 06, 2024 Assessment & Plan (1) Generalized weakness: (2) Dyspnea and respiratory abnormalities: encouraged to use flutter device every hour. teaching provided to pt and he returned demonstration. he states he did not know this was a daily regimen ?role for albuterol neb (3) Advanced care planning/counseling discussion: I met with James face to face at bedside for 60min. He has a lengthy history and can be tangential at times He was able to tell me he has been on treatment for over 10 years He states he met with Dr Kingsley, his longtime med onc physician last week - at that meeting he states he was told he "needs a more aggressive chemo" and "everyone" felt he was making progress. He believes his health took a toll after the fall and fracture but he was unable to explain or even recall much about the nec fascitis and infection he has been dealing with and instead is now perseverating about "the fluid in my lungs - it came out of nowhere." We spoke about code status and reviewed cpr survival: CPR survival: Only about 10% of patients who have [id number] sudden cardiac arrest survive to hospital discharge, with many survivors having neurologic impairment. This rate is even lower among patients with serious coexisting conditions, ie chance of s urvival to hospital discharge for in-hospital CPR in older people is low to moderate (15%) and decreases with age, comorbidities, performance status and frailty: for pts > 70 yo, more than half of the patients who initially survived resuscitation in the hospital before hospital discharge. The pooled survival to discharge after in-hospital CPR was 18% for patients between 70 and 79 years old, 15% for patients between 80 and 89 years old and 11% for patients of 90 years and older. (Dale OLSONY, Jaspreet LJ, Paty F, et al. Trends in short- and long-term survival among [id number] cardiac arrest patients alive at hospital arrival. Circulation 2014;130:3657-9449. AND Champ C, Rene T, Renetta R, et al. Performance of clinical risk scores to predict mortality and neurological outcome in cardiac arrest patients. Resuscitation 2019;136:21-29.) He states he wouldn't want to be kept alive "like a vegetable, that's not living." He states he would not want to prolong dying and if that was what awaits him "you all should pull the plug, don't let me go on like that." I asked him how he envisioned the end of his life - what and who would be important to him at that time and he was able to quickly note it would be important to be with his kids and in his own home if he could have that made possible. He notes he is not able to care for his needs right now but still believes he can get to a point where he is strong enough to return home. We agreed to a family meeting when his son and daughter are available on . Time TBD. He is going to reflect about code status and his ultimate wishes for end of life care. (4) Leg wound, right: Encounter type: initial encounter Qualified Code(s): S81.801A - Unspecified open wound, right lower leg, initial encounter Plan As above. Thank you for allowing us to participate in the ongoing care of this patient. Please page with any additional concerns. Renae Denise DNP Director, Palliative Medicine History of Present Illness Attending Physician: Verito Alfaro MD History of Present Illness Ismael is an 89yo man with multiple myeloma and atrial fibrillation who came in with 2 days of increasing shortness of breath at rest and productive cough without hemoptysis. 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 He had debridement, treatment with antibiotics, and [facility]. (completed course of Bactrim 4 days ago). 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 Original diagnosis established in May 2011 at which time quanti tative IgG did not meet criteria for diagnosis. Skeletal survey at that time was also negative for lytic lesion. 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 During that period of time a slow steady increase of quantitative IgG and M spike were noted. Increase in creatinine and significant decrease in hemoglobin were not seen. In May 2014, M spike in quantitative IgG were approaching diagnostic criteria and therefore bone marrow biopsy and aspiration was performed in May 2014. Plasma cell burden was approximately 25%. After much deliberation between myself and the patient it was agreed to begin combination Revlimid and dexamethasone. Patient has tolerated therapy very well. Dexamethasone was weaned rapidly however unfortunately resulted in rising M spike in quantitative IgG. Therefore he was placed back on 20 mg of dexamethasone weekly along with 25 mg Revlimid daily 21 days every 28 day cycle" Allergies Allergy/AdvReac Type Severity Reaction Status Date / Time No Known Allergies Allergy Verified 08/17/24 17:04 Home Medications Medication Instructions Recorded Confirmed Type lenalidomide 25 mg capsule 25 mg PO QPM 10/23/21 09/04/24 History (Revlimid) pantoprazole 40 mg tablet,delayed 40 mg PO HS #90 tabs 01/13/24 09/04/24 Rx release potassium chloride 20 mEq 20 meq PO HS #90 tabs 01/21/24 09/04/24 Rx tablet,extended release rivaroxaban 20 mg tablet (Xarelto) 20 mg PO QPM #90 tabs 03/04/24 09/04/24 Rx ergocalciferol (vitamin D2) 1,250 1,250 mcg PO WK 05/21/24 09/04/24 History mcg (50,000 unit) capsule acyclovir 400 mg tablet 400 mg PO BID 08/17/24 09/04/24 History bortezomib 3.5 mg injection powder 0 mg IV WK 08/17/24 09/04/24 History for solution (Velcade) metoprolol tartrate 25 mg tablet 12.5 mg (1/2 x 25 mg) PO QAM 30 08/24/24 09/04/24 Rx days #30 tabs midodrine 10 mg tablet 10 mg PO TID@0800,1200,1700 30 08/24/24 09/04/24 Rx days #90 tabs [id number] acid 0.4 1 tab PO QAM 30 days #30 tabs 08/24/24 09/04/24 Rx mg-lycopene 300 mcg-lutein 250 mcg tablet (Cerovite Senior) Patient History Medical History Weight loss, non-intentional pt states lost about 30lbs beginning of 2023 intentionally and then another almost 30unitentionally; d/w PCP and Transport [employer] who ordered colonosopy/EGD which he completed last month (was told were normal) and is awaiting further advice Squamous cell skin cancer s/p MOHS Hyperlipidemia GERD (gastroesophageal reflux disease) Chronic venous stasis DVT (deep venous thrombosis) per pt, had 1 DVT in each leg and after 2nd was put on Xarelto; no DVT since starting Xarelto Multiple myeloma follows with CCP; on lenalidomide daily Anemia macrocytic; pt states occasionally receives iron transfusios; follows with Heme Incarcerated left inguinal hernia History of COVID-26 August 2021 Generalized osteoarthritis Primarily of R knee. Intermittent corticosteroid injections per ortho. Surgical History History of incision and drainage (08/17/24) Incision, drainage and debridement of Necrotizing Soft Tissue Infection, Right Lower Extremity [id number],(Right) - Jaden Menendez DO S/P left inguinal hernia repair (12/05/22) Left Open Inguinal Hernia Repair with Mesh(Left) - Jered Arriaga DO: GA: LMA#5 History of cataract surgery bilat History of tonsillectomy H/O inguinal hernia repair Right Open Inguinal Hernia Repair with Mesh(Right) - Jered Arriaga DO 11-01-21 History of Mohs micrographic surgery for squamous cell carcinoma in situ (SCCIS) of skin Hx of removal of cyst left knee History of colonoscopy S/P cholecystectomy Family History Mother Cardiac disorder Myocardial infarction Brother Cardiac disorder Father Stroke Denies family history of Ovarian cancer Prostate cancer Breast cancer Colorectal cancer Social History Smoking Status: Never smoker Tobacco Type: Cigarettes Age Started Using Tobacco: 18; Age Quit Using Tobacco: 21; packs per day: 1; Second Hand Exposure: No; Do You Dip or Chew Tobacco: No; Hx Alcohol Use: Yes Alcohol type: wine Alcohol Intake Frequency: 4 or More x per/Week Alcohol Intake Frequency Comment: 1 glass daily Hx Substance Use: No Preferred Language: Nepali Communication Ability: Effective Visual Impairment: No Limitations Hearing Ability: Use of Hearing Aid Slater Apprentice Required: No Beliefs That Will Affect Care: Synagogue marital status: / Current Living Situation: Rehab Current Living Situation Comment: [facility] current occupational status: retired How many Children do You have: 3 Feels Safe at Home: Yes Childhood Exposure to Second-Hand Smoke: Yes (parents did ) Diet: regular caffeine: Yes (drinks coffee 1-2 a day, green tea, iced tea ) Dental Care, Regularly: Yes Physical Activity Frequency: 5-6 Times per Week Seatbelt Use: always Sunscreen Use: Yes (tries to ) Assistive Devices: Walker and Wheelchair Review of Systems Review of Systems: All systems reviewed & are unremarkable except as noted in Subjective Physical Exam Constitutional: + ill appearing, + thin, + physical limi tations, + frail appearing and + disheveled Eyes: PERRL ENMT: Ears: + hearing impairment Mouth: + dental restorations and + chipped teeth Neck: trachea midline; no tracheal deviation and neck nontender Thyroid: no thyromegaly Respiratory: + cough (bronchitic), able to speak in c omplete sentences and symmetric chest movement Auscultation: + diminished lung sounds ( right > left) and + crackles Chest tube right +serosang drainage Cardiovascular: Rate/Rhythm: + irregularly irregular Gastrointestinal (Abdomen): Inspection/Auscultation: + abdomen distended and normal bowel sounds Percussion/Palpation: abdomen soft; abdomen nontender and no guarding Musculoskeletal: right lateral thigh wound Skin: + turgor decreased, + wound (right thigh /lateral), + pallor and + brittle hair Psychiatric: AAOx3, slight intermittent confusion difficulty retaining information Results & Data Vital Signs (Past 12 Hours) Vital Signs Temp Pulse Pulse Resp BP Pulse Ox O2 Del Method 09/06/24 09:06 99/58 L 09/06/24 07:50 Room Air, Nasal Cannula 09/06/24 07:00 74 09/06/24 07:00 36.3 C L 72 18 86/53 L 97 Nasal Cannula 09/06/24 03:25 36.6 C 78 18 93/60 L 96 Nasal Cannula 09/05/24 23:52 36.5 C 81 19 98/57 L 96 Room Air 09/05/24 22:06 73 O2 Flow Rate 09/06/24 09:06 09/06/24 07:50 1 09/06/24 07:00 09/06/24 07:00 2 09/06/24 03:25 1 09/05/24 23:52 09/05/24 22:06 Laboratory Results 09/06/24 09/05/24 09/05/24 Range/Units 06:18 Unknown 07:15 WBC 2.84 L (4.8-10.8) K/ul RBC 2.23 L (4.70-6.10) M/uL Hgb 7.4 L (14.0-18.0) g/dl Hct 23.3 L 27.7 L (42.0-52.0) % MCV 104.5 H 104.5 H (80.0-100.0) fL MCH 33.2 34.1 H (25.0-34.0) pg MCHC 31.8 L 32.6 (32.0-36.0) g/dL RDW Std Deviation 66.0 H 65.5 H (36.4-46.3) fL RDW Coeff of Ezequiel 17.2 H 17.3 H (11.5-14.5) % Plt Count 133 167 (130-400) K/uL MPV 10.9 10.9 (9.4-12.4) fL Immature Gran % (Auto) % Neut % (Auto) % Lymph % (Auto) % Kane % (Auto) % Eos % (Auto) % Baso % (Auto) % Neut # (Auto) (1.40-6.50) K/uL Lymph # (Auto) (1.20-3.40) K/uL Kane # (Auto) (0.11-0.59) K/uL Eos # (Auto) (0.00-0.50) K/uL Baso # (Auto) (0.00-0.20) K/uL Immature Gran # (Auto) (0.01-0.20) K/uL PT (9.0-12.0) Seconds INR (0.9-1.1) Sodium 141 141 (136-145) mmol/L Potassium 3.5 3.4 L (3.5-5.1) mmol/L Chloride 105 102 (98-107) mmol/L Carbon Dioxide 34 H 34 H (21-32) mmol/L Anion Gap 2 L 5 (3-11) BUN 21 25 H (6-23) mg/dl Creatinine 0.57 L 0.72 (0.6-1.4) mg/dl Est Cr Clr Drug Dosing 96.4 76.3 ml/min eGFR 93.71 87.33 BUN/Creatinine Ratio 36.8 H 34.7 H (10-20) Glucose 116 H 141 H (70-99(Fasting)) mg/dl Calcium 7.6 L 8.1 L (8.6-10.3) mg/dl Magnesium (1.7-2.4) mg/dl Total Bilirubin 0.9 (0.2-1.0) mg/dl AST 12 L (13-39) U/L ALT 12 (7-52) U/L Alkaline Phosphatase 131 H (34-104) U/L Lactate Dehydrogenase 123 (86-244) U/L Troponin I High Sens (0-20) pg/ml B-Natriuretic Peptide (0-100) pg/ml Total Protein 5.6 L (6.0-8.3) gm/dl Albumin 2.5 L (3.4-5.0) gm/dl Globulin 3.1 (2.5-4.0) gm/dl Albumin/Globulin Ratio 0.8 L (0.9-2) Urine Color Urine Appearance (Clear) Urine pH (4.5-7.5) Ur Specific Riddle (1.000-1.030) Urine Protein (Negative) Urine Glucose (UA) (Negative) Urine Ketones (Negative) Urine Blood (Negative) Urine Nitrite (Negative) Urine Bilirubin (Negative) Urine Urobilinogen (Negative) Ur Leukocyte Esterase (Negative) Urine WBC (Auto) (0-5) /hpf Urine RBC (Auto) (0-2) /hpf U Hyaline Cast (Auto) (0-2) /lpf U Epithel Cells (Auto) (0-2) /hpf Urine Bacteria (Auto) (None Seen) Hyaline Casts (None Presnt) /lpf Urine Mucus (None Prsent) Urine Comment Fluid Neutrophils % 84 % Fluid Lymphocytes % 11 % Fluid Basophils % 2 % Fluid Meso/Macro/Kane % 3 % Fluid Comment Pleural Fluid Source Right Lung Pleural Color Red Pleural Appearance Bloody Pleural pH 7.35 (7.3-7.4) Pleural WBC (Auto) 3125 /uL Pleural RBC (Auto) 460786 /uL Pleural Total Protein 3.2 gm/dl Pleural LDH 350 U/L Pleural Glucose 92 mg/dl Nasal Screen MRSA (PCR) (Negative) Adenovirus (PCR) (NotDetected) B. pertussis DNA (PCR) (NotDetected) B.parapertussis DNA PCR (NotDetected) C. pneumoniae DNA (PCR) (NotDetected) Coronavirus OC43 (PCR) (NotDetected) Coronavirus HKU1 (PCR) (NotDetected) Coronavirus 229E (PCR) (NotDetected) SARS-CoV-2 (PCR) (NotDetected) Coronavirus NL63 (PCR) (NotDetected) Human Metapneumovir PCR (NotDetected) Influenza Type A (PCR) (NotDetected) Influenza Type B (PCR) (NotDetected) M. pneumoniae (PCR) (NotDetected) Parainfluenza 1 (PCR) (NotDetected) Parainfluenza 2 (PCR) (NotDetected) Parainfluenza 3 (PCR) (NotDetected) Parainfluenza 4 (PCR) (NotDetected) RSV (PCR) (NotDetected) Entero/Rhino (PCR) (NotDetected) 09/05/24 09/04/24 09/04/24 Range/Units 07:15 23:05 17:50 WBC 3.60 L (4.8-10.8) K/ul RBC 2.67 L (4.70-6.10) M/uL Hgb 9.1 L (14.0-18.0) g/dl Hct 27.9 L (42.0-52.0) % MCV (80.0-100.0) fL MCH (25.0-34.0) pg MCHC (32.0-36.0) g/dL RDW Std Deviation (36.4-46.3) fL RDW Coeff of Ezequiel (11.5-14.5) % Plt Count (130-400) K/uL MPV (9.4-12.4) fL Immature Gran % (Auto) % Neut % (Auto) % Lymph % (Auto) % Kane % (Auto) % Eos % (Auto) % Baso % (Auto) % Neut # (Auto) (1.40-6.50) K/uL Lymph # (Auto) (1.20-3.40) K/uL Kane # (Auto) (0.11-0.59) K/uL Eos # (Auto) (0.00-0.50) K/uL Baso # (Auto) (0.00-0.20) K/uL Immature Gran # (Auto) (0.01-0.20) K/uL PT (9.0-12.0) Seconds INR (0.9-1.1) Sodium (136-145) mmol/L Potassium (3.5-5.1) mmol/L Chloride (98-107) mmol/L Carbon Dioxide (21-32) mmol/L Anion Gap (3-11) BUN (6-23) mg/dl Creatinine (0.6-1.4) mg/dl Est Cr Clr Drug Dosing ml/min eGFR BUN/Creatinine Ratio (10-20) Glucose (70-99(Fasting)) mg/dl Calcium (8.6-10.3) mg/dl Magnesium (1.7-2.4) mg/dl Total Bilirubin (0.2-1.0) mg/dl AST (13-39) U/L ALT (7-52) U/L Alkaline Phosphatase (34-104) U/L Lactate Dehydrogenase (86-244) U/L Troponin I High Sens (0-20) pg/ml B-Natriuretic Peptide (0-100) pg/ml Total Protein (6.0-8.3) gm/dl Albumin (3.4-5.0) gm/dl Globulin (2.5-4.0) gm/dl Albumin/Globulin Ratio (0.9-2) Urine Color Dark Yellow Urine Appearance Clear (Clear) Urine pH 5.5 (4.5-7.5) Ur Specific Riddle 1.020 (1.000-1.030) Urine Protein 1+ H (Negative) Urine Glucose (UA) Negative (Negative) Urine Ketones Trace H (Negative) Urine Blood 1+ H (Negative) Urine Nitrite Negative (Negative) Urine Bilirubin Negative (Negative) Urine Urobilinogen Negative (Negative) Ur Leukocyte Esterase Negative (Negative) Urine WBC (Auto) 0-5 (0-5) /hpf Urine RBC (Auto) >20 H (0-2) /hpf U Hyaline Cast (Auto) 6-10 H (0-2) /lpf U Epithel Cells (Auto) 0-2 (0-2) /hpf Urine Bacteria (Auto) None Seen (None Seen) Hyaline Casts Present A (None Presnt) /lpf Urine Mucus Present A (None Prsent) Urine Comment Fluid Neutrophils % % Fluid Lymphocytes % % Fluid Basophils % % Fluid Meso/Macro/Kane % % Fluid Comment Pleural Fluid Source Pleural Color Pleural Appearance Pleural pH (7.3-7.4) Pleural WBC (Auto) /uL Pleural RBC (Auto) /uL Pleural Total Protein gm/dl Pleural LDH U/L Pleural Glucose mg/dl Nasal Screen MRSA (PCR) Negative (Negative) Adenovirus (PCR) (NotDetected) B. pertussis DNA (PCR) (NotDetected) B.parapertussis DNA PCR (NotDetected) C. pneumoniae DNA (PCR) (NotDetected) Coronavirus OC43 (PCR) (NotDetected) Coronavirus HKU1 (PCR) (NotDetected) Coronavirus 229E (PCR) (NotDetected) SARS-CoV-2 (PCR) (NotDetected) Coronavirus NL63 (PCR) (NotDetected) Human Metapneumovir PCR (NotDetected) Influenza Type A (PCR) (NotDetected) Influenza Type B (PCR) (NotDetected) M. pneumoniae (PCR) (NotDetected) Parainfluenza 1 (PCR) (NotDetected) Parainfluenza 2 (PCR) (NotDetected) Parainfluenza 3 (PCR) (NotDetected) Parainfluenza 4 (PCR) (NotDetected) RSV (PCR) (NotDetected) Entero/Rhino (PCR) (NotDetected) 09/04/24 09/04/24 Range/Units 16:37 16:36 WBC 5.19 (4.8-10.8) K/ul RBC 3.00 L (4.70-6.10) M/uL Hgb 10.1 L (14.0-18.0) g/dl Hct 31.8 L (42.0-52.0) % MCV 106.0 H (80.0-100.0) fL MCH 33.7 (25.0-34.0) pg MCHC 31.8 L (32.0-36.0) g/dL RDW Std Deviation 66.3 H (36.4-46.3) fL RDW Coeff of Ezequiel 17.2 H (11.5-14.5) % Plt Count 169 (130-400) K/uL MPV 11.1 (9.4-12.4) fL Immature Gran % (Auto) 0.2 % Neut % (Auto) 75.3 % Lymph % (Auto) 8.9 % Kane % (Auto) 15.2 % Eos % (Auto) 0.2 % Baso % (Auto) 0.2 % Neut # (Auto) 3.91 (1.40-6.50) K/uL Lymph # (Auto) 0.46 L (1.20-3.40) K/uL Kane # (Auto) 0.79 H (0.11-0.59) K/uL Eos # (Auto) 0.01 (0.00-0.50) K/uL Baso # (Auto) 0.01 (0.00-0.20) K/uL Immature Gran # (Auto) 0.01 (0.01-0.20) K/uL PT 15.2 H (9.0-12.0) Seconds INR 1.4 H (0.9-1.1) Sodium 139 (136-145) mmol/L Potassium 3.6 (3.5-5.1) mmol/L Chloride 101 (98-107) mmol/L Carbon Dioxide 32 (21-32) mmol/L Anion Gap 6 (3-11) BUN 25 H (6-23) mg/dl Creatinine 0.80 (0.6-1.4) mg/dl Est Cr Clr Drug Dosing 68.7 ml/min eGFR 84.59 BUN/Creatinine Ratio 31.3 H (10-20) Glucose 190 H (70-99(Fasting)) mg/dl Calcium 8.3 L (8.6-10.3) mg/dl Magnesium 1.9 (1.7-2.4) mg/dl Total Bilirubin 0.8 (0.2-1.0) mg/dl AST 15 (13-39) U/L ALT 13 (7-52) U/L Alkaline Phosphatase 159 H (34-104) U/L Lactate Dehydrogenase (86-244) U/L Troponin I High Sens 11.9 (0-20) pg/ml B-Natriuretic Peptide 328 H (0-100) pg/ml Total Protein 6.2 (6.0-8.3) gm/dl Albumin 2.6 L (3.4-5.0) gm/dl Globulin 3.6 (2.5-4.0) gm/dl Albumin/Globulin Ratio 0.7 L (0.9-2) Urine Color Urine Appearance (Clear) Urine pH (4.5-7.5) Ur Specific Riddle (1.000-1.030) Urine Protein (Negative) Urine Glucose (UA) (Negative) Urine Ketones (Negative) Urine Blood (Negative) Urine Nitrite (Negative) Urine Bilirubin (Negative) Urine Urobilinogen (Negative) Ur Leukocyte Esterase (Negative) Urine WBC (Auto) (0-5) /hpf Urine RBC (Auto) (0-2) /hpf U Hyaline Cast (Auto) (0-2) /lpf U Epithel Cells (Auto) (0-2) /hpf Urine Bacteria (Auto) (None Seen) Hyaline Casts (None Presnt) /lpf Urine Mucus (None Prsent) Urine Comment Fluid Neutrophils % % Fluid Lymphocytes % % Fluid Basophils % % Fluid Meso/Macro/Kane % % Fluid Comment Pleural Fluid Source Pleural Color Pleural Appearance Pleural pH (7.3-7.4) Pleural WBC (Auto) /uL Pleural RBC (Auto) /uL Pleural Total Protein gm/dl Pleural LDH U/L Pleural Glucose mg/dl Nasal Screen MRSA (PCR) (Negative) Adenovirus (PCR) Not Detected (NotDetected) B. pertussis DNA (PCR) Not Detected (NotDetected) B.parapertussis DNA PCR Not Detected (NotDetected) C. pneumoniae DNA (PCR) Not Detected (NotDetected) Coronavirus OC43 (PCR) Not Detected (NotDetected) Coronavirus HKU1 (PCR) Not Detected (NotDetected) Coronavirus 229E (PCR) Not Detected (NotDetected) SARS-CoV-2 (PCR) Not Detected (NotDetected) Coronavirus NL63 (PCR) Not Detected (NotDetected) Human Metapneumovir PCR Not Detected (NotDetected) Influenza Type A (PCR) Not Detected (NotDetected) Influenza Type B (PCR) Not Detected (NotDetected) M. pneumoniae (PCR) Not Detected (NotDetected) Parainfluenza 1 (PCR) Not Detected (NotDetected) Parainfluenza 2 (PCR) Not Detected (NotDetected) Parainfluenza 3 (PCR) Not Detected (NotDetected) Parainfluenza 4 (PCR) Not Detected (NotDetected) RSV (PCR) Not Detected (NotDetected) Entero/Rhino (PCR) Not Detected (NotDetected) Diagnostic Findings Chest X-Ray 09/04/24 16:20 Chest radiograph, one view History: Dyspnea Comparison: 08/20/2024 Findings/impression: Single AP view of the chest performed. Complete opacification of the right hemithorax, consistent with enlarged pleural effusion from what was seen on prior. A smaller left pleural effusion is also appreciated. No pneumothorax. The cardiac silhouette is partially obscured. The central airway is midline. Right shoulder severe degenerative change. Degenerative changes throughout the thoracic spine. Inferolateral right rib fractures again seen as on prior. Electronically signed by Luiz Carrillo 09-04-2024 5:[address] 09/04/24 17:33 CT chest without contrast History: Shortness of breath Comparison: None Technique: Helical CT imaging of the chest performed without IV contrast Dose reduction techniques were achieved by using automatic exposure control and/or adjustment of mA and/or kV according to patient size and/or use of iterative reconstruction technique. Findings: A large right pleural effusion, occupies essentially the entire right hemithorax, compressing of the right lung. There is a small left pleural effusion. No pneumothorax. Heart size is normal. The thoracic aorta is normal in size. The pulmonary artery is normal in size. No significant pericardial effusion. No suspicious lymphadenopathy in the chest. The central airway is clear. Limited visualized upper abdomen. Posterior right-sided rib fractures, rib 10 with healing callus posteriorly, and laterally is a displaced fracture without healing callus. Posterior right rib 11 fracture with healing callus. Displaced lateral right rib 9 fracture without healing callus. Diffuse anterior flowing degenerative osteophytes of the thoracic spine. Impression: Large right pleural effusion occupying the hemithorax, and compressing the right lung. Small left pleural effusion. Right ribs 9 and 10, contain displaced rib fractures, which may be acute. There is also healing callus associated with a posterior right rib 11, and another portion of the posterior right rib 10, suggesting healing fractures. Electronically signed by Luiz Carrillo 09-04-2024 6:41 PM Chest X-Ray 09/05/24 06:54 EXAM: XR chest 1V portable CLINICAL HISTORY: S/P Thoracentesis TECHNIQUE: Radiograph of chest was acquired. COMPARISON: 09/04/2024 15:50:00 EMR SPECIALIST FINDINGS: Complete white out of right lung. Minimal blunting of left costophrenic angle with hazy left lower zone opacity. Rest of the left lungs is clear and well-expanded. The cardiomediastinal silhouette is within normal limits. No acute osseous abnormality. Right intercostal drainage tube seen in situ. IMPRESSION: 1. Complete white out of right lung. (Minimal decrease in haziness compared to previous radiograph)-interval placemen of tube. 2. Minimal blunting of left costophrenic angle with hazy left lower zone opacity. (Stable) Electronically signed by Tyler Mendoza 09-05-2024 08:28 AM Chest X-Ray 09/06/24 07:00 EXAM: XR chest 1V portable CLINICAL HISTORY: HEMOTHORAX. TECHNIQUE: An X-ray image of the chest is obtained in AP projection. COMPARISON: 09/05/2024. FINDINGS: Pulmonary Parenchyma: Chest tube seen in situ, in the right lower hemithorax, in right 8th intercostal space. Interval regressed, homogeneous opacification of the right lower zone obscuring the right costophrenic recess. Minimal pleural reaction right costophrenic recess. Heart and Mediastinum: Cardiomegaly with bilateral hilar congestion. No mediastinal widening or masses. No hilar or mediastinal lymphadenopathy. Bony Thorax: Bony thorax appears intact without fractures or deformities. Soft Tissues: Soft tissues overlying the chest wall are unremarkable. IMPRESSION: 1. Chest tube seen in situ. 2. Interval regressed, homogeneous opacification of the right lower zone obscuring the right costophrenic recess. Mild pleural effusion. 3. Small/minimal pleural reaction at the left costophrenic recess. Minimal left pleural effusion. 4. Cardiomegaly with bilateral hilar congestion. 5. Comparing the previous x-ray dated 09/05/2024, there is significant regressed right pleural effusion. Electronically signed by Bc Garcia 09-06-2024 08:58 AM PG Care Time/CCT Total # of Minutes Spent Total Time Spent with Patient: Total time spent is greater than 50% in coordination of care (as documented) at patient's floor/unit and/or counseling patient: I spent 140 minutes overall addressing this case: 20 min in medical data review/discussion with referring provider(s) and/or preparation for the visit 20 min in direct interaction with the patient/exam 60 min in Advance Care Planning/Goals of Care discussions as detailed above in note (must be >16min) 20 min in subsequent review and synthesis of assessment and plan 20 min communicating with other providers regarding the patient's case: nursing, primary team Advanced Care Planning 32060 Advanced Care Planning 30 Min 52779 Advanced Care Planning Additional 30 [place] [address] IN/OBS CONSULT LVL 5,80M (25 - SIGNIFICANT, SEPARATELY IDENTIFIABLE ) Patient Type New Medical Decision Making High Complexity Diagnoses Generalized weakness R53.1 Dyspnea and respiratory abnormalities R06.00; R06.89 Advanced care planning/counseling discussion Z71.89 Leg wound, right S81.801A Encounter type: initial encounter Additional Codes Advanced Care Planning - 04535 Advanced Care Planning Additional 30 Min: 15705 Advanced Care Planning Additional 30 Min ([id number]) Advanced Care Planning - 31420 Advanced Care Planning 30 Min: 58612 Advanced Care Planning 30 Min ([id number]) Comment [id number], [id number]
--- NOTE | 2024-09-06 10:54 | Pulmonology Progress Note ---
Date of Service September 06, 2024 Assessment & Plan (1) Large pleural effusion: (2) Rib fractures: (3) Acute dyspnea: (4) Acute hypoxemic respiratory failure: Plan Impression: 89-year-old male with history of multiple myeloma recently admitted with necrotizing fasciitis. Admitted now with massive pleural effusion. He has rib fractures noted on his CT scan. He is anticoagulated. Differential would include malignant effusion although appears less likely given the rapid increase. Hemothorax is more likely given the rib fractures and his acute anticoagulation. Drainage is warranted. Recommendation: 1. Pleural effusion: 14 Romansh chest tube placed 09/05/2024. Pleural fluid exudative by lights criteria and bloody with clot noted in chest tube. Pleural fluid pending for microbiologic as well as cytologic analysis. Chest x-ray shows marked improvement of right pleural effusion with moderate residual effusion remaining. Chest tube appropriately positioned. 2. Hypoxemia: Improved with drainage of the pleural effusion. 97% on room air. 3. Rib fractures: Continue supportive management. Pain control. Given the possibility of discontinuation of next, would favor discontinuation of anticoagulation at this point in time and follow clinically. 4. Patient's son is requesting to meet with palliative care. Will defer to primary admitting service. Will follow the patient based on results of the pleural fluid. Thanks for the opportunity participating the care of this patient. Feel free to reach out to us with questions or concerns Admission and Anticipated Discharge Date Admission Date: September 04, 2024 Supervising Physician Co-Signing Physician Notes I saw and evaluated the patient with VIET Darnell, and agree with findings and plan as documented in the note. Patient seen and examined at bedside. Case was discussed with outgoing mate chief Patient was saturating 94% on room air. He did complain of some discomfort at the right side of the chest where he had the chest tube Denies any nausea or vomiting Fair appetite Constitutional: No acute distress HEENT: EOMI, PERRLA Respiratory system: Decreased air entry on the right side, no wheeze, no rhonchi, positive crackles bilateral lower lobes CVS: S1-S2 positive, no murmurs or gallops Abdomen: Soft, nontender, nondistended, positive bowel sounds x4 Extremities: +2 pulses bilaterally radialis/ dorsalis pedis, no cyanosis, +1 pitting edema bilateral lower extremity Neuro: Awake alert oriented x3 Psych: Normal mood and affect G/U: Positive Grissom Plan: Hemothorax, chest x-ray from today on personal review does show improvement in the right-sided pleural effusion The chest tube was flushed as there was clotting within the tube. H&H is stable Continue with chest tube Continue to hold anticoagulation Please note the above document was generated using voice recognition software. It may contain grammatical, syntax or spelling errors.Any formal questions or concerns about the content, text or information contained within the body of this dictation should be directly addressed to the provider for clarification. Subjective "I feel better after the drain." Patient SpO2 97% on room air this am and subjectively his breathing is improved. Chest tub in place and put out of 3350 of bloody output with clot noted at the proximal drainage/tube connection site. Chest x-ray showed marked improvement in right pleural effusion with persistent moderate effusion. Chest tube in appropriate position. Review of Systems 2 Review of Systems: All systems reviewed & are unremarkable except as noted in HPI & below Physical Exam 2 Constitutional: + frail appearing; no acute distress Neck: trachea midline, no thyromegaly Respiratory: + labored breathing and + tachypneic Auscultation: + diminished lung sounds Decreased breath sounds with dullness to percussion right lung alcala Cardiovascular: RRR, no murmur, no edema Gastrointestinal (Abdomen): normal bowel sounds, soft, nontender, no hepatosplenomegaly Musculoskeletal: Extremities: extremities normal to inspection Skin: no rashes, warm and dry Neurologic: Nonfocal exam Lymphatic: no cervical lymphadenopathy Results & Data Results & Data Vital Signs (Past 12 Hours) Vital Signs Temp Pulse Pulse Resp BP Pulse Ox O2 Del Method 09/06/24 09:06 99/58 L 09/06/24 07:50 Room Air, Nasal Cannula 09/06/24 07:00 74 09/06/24 07:00 36.3 C L 72 18 86/53 L 97 Nasal Cannula 09/06/24 03:25 36.6 C 78 18 93/60 L 96 Nasal Cannula 09/05/24 23:52 36.5 C 81 19 98/57 L 96 Room Air O2 Flow Rate 09/06/24 09:06 09/06/24 07:50 1 09/06/24 07:00 09/06/24 07:00 2 09/06/24 03:25 1 09/05/24 23:52 Laboratory Results 09/06/24 06:18 09/06/24 06:18 Abnormal Lab Results 09/05/24 09/06/24 07:15 06:18 WBC 2.84 L RBC 2.23 L Hgb 7.4 L Hct 23.3 L MCV 104.5 H MCH 33.2 MCHC 31.8 L RDW Std Deviation 66.0 H RDW Coeff of Ezequiel 17.2 H Plt Count 133 MPV 10.9 Sodium 141 Potassium 3.5 Chloride 105 Carbon Dioxide 34 H Anion Gap 2 L BUN 21 Creatinine 0.57 L Est Cr Clr Drug Dosing 96.4 eGFR 93.71 BUN/Creatinine Ratio 36.8 H Glucose 116 H Calcium 7.6 L Lactate Dehydrogenase 123 Diagnostic Findings Chest X-Ray 09/06/24 07:00 EXAM: XR chest 1V portable CLINICAL HISTORY: HEMOTHORAX. TECHNIQUE: An X-ray image of the chest is obtained in AP projection. COMPARISON: 09/05/2024. FINDINGS: Pulmonary Parenchyma: Chest tube seen in situ, in the right lower hemithorax, in right 8th intercostal space. Interval regressed, homogeneous opacification of the right lower zone obscuring the right costophrenic recess. Minimal pleural reaction right costophrenic recess. Heart and Mediastinum: Cardiomegaly with bilateral hilar congestion. No mediastinal widening or masses. No hilar or mediastinal lymphadenopathy. Bony Thorax: Bony thorax appears intact without fractures or deformities. Soft Tissues: Soft tissues overlying the chest wall are unremarkable. IMPRESSION: 1. Chest tube seen in situ. 2. Interval regressed, homogeneous opacification of the right lower zone obscuring the right costophrenic recess. Mild pleural effusion. 3. Small/minimal pleural reaction at the left costophrenic recess. Minimal left pleural effusion. 4. Cardiomegaly with bilateral hilar congestion. 5. Comparing the previous x-ray dated 09/05/2024, there is significant regressed right pleural effusion. Electronically signed by Bc Garcia 09-06-2024 08:58 AM PG Care Time/CCT Total # of Minutes Spent Total Time Spent with Patient: Total time spent is greater than 50% in coordination of care (as documented) at patient's floor/unit and/or counseling patient: Coding Level of Care Code 22887 SUB INP/OBS CARE 2/35MIN Diagnoses Large pleural effusion J90 Rib fractures S22.49XA Acute dyspnea R06.00 Acute hypoxemic respiratory failure J96.01
--- NOTE | 2024-09-06 16:58 | Hospitalist Progress Note ---
Date of Service September 06, 2024 Assessment & Plan (1) Pleural effusion: (2) Acute respiratory failure: (3) Multiple myeloma: (4) Atrial fibrillation: Plan 89-year-old man with multiple myeloma and recently diagnosed atrial fibrillation who came in with 2 days of increasing shortness of breath at rest. He had a femur fracture this April. He was recently hospitalized from 08/17 - 08/24. during that admission he was critically ill with necrotizing fasciitis of his right thigh from Clostridium and he was bacteremic. He had debridement, treatment with antibiotics, and [facility] with wound VAC. completed his course of Bactrim 4 days PACKAGE PICK UP as advised by ID. He was admitted with highly symptomatic large right pleural effusion # large right pleural effusion feeling almost entire right hemithorax causing acute respiratory failure # right rib fractures - acuity uncertain, not all have callus - Consulted pulmonary. chest tube placement 09/[address] Chino. Recent? rib fractures, was on xarelto - held. Possibly pneumonia last admission. Gram stain neg culture ngtd, bloody, cytology pending. Exudative by Light's criteria - initially needed HFO2, now on room air - cont holding Xarelto - has been baseline hypotensive recently, continue midodrine - no diuretics today, hypotensive, albumin 500 mL 5% yesterday afternoon, massive chest tube output 09/05 Anemia - Hg fell to 7.4 this AM which was largely dilutional from albumin, back up to 8.9 on recheck this afternoon. This is same as prior discharge 08/24 but lower than on this admission. Some bleeding into right effusion, anemia related to myeloma criticall illness and phlebotomy, changes this admission so far appear to be volume shifts. AM CBC # atrial fibrillation and history of DVT on xarelto - xarelto held - last dose AM 09/04 - continue metoprolol - held this AM hypotensive - SCD's # recent septic shock from Clostridium septicum R thigh necrotizing fasciitis and bacteremia - completed antibiotics for clostridium bacteremia - consulted [facility], discussed with ZEV Sevilla. Slimy yellow in wound base - see photos, culture taken. currently wet-->dry - reapply vac when appropriate - eval for wound infection first # multiple myeloma - followed by Dr. Kingsley - recently on velcade and revlimid - held - leukopenia is chronic, platelets normal, anemia multifactorial - discussed with Dr. Kingsley today and updated him. Plans for social visit to [place]. Told James in office visit last week he's too ill for myeloma treatment currently and would need to recover/rehab first # moderate protein calorie malnutrition - sarcopenia, bitemporal wasting, frail, albumin 2.5. Down 1-2 kg since April but much greater body mass loss than that (currently has 10+ kg of anasarca) - will benefit from mirtazapine to stimulate appetite - start 7.5 mg HS - consulted RD # B12 deficiency, macrocytosis. Recent B12 level in the 100s. daily IM B12 x 7 then weekly (only 7 daily doses written at this time) # DVT ppx - SCD for now, still with chest tube and bloody output He has been thinking about code status. Remains full code for now. Son James is local and daughter will be in town from [place] this upcoming week. Has been critically ill this month, frail and elderly, currently nonambulatory (has been able to stand and transfer to while at [facility]). Significant functional decline since femur fracture 04/2024. Significant chance that he won't regain functional status enough to resume aggressive myeloma treatment. Consulted palliative care - discussed with Dr. Denise, family meeting Friday updated his son at bedside 09/04 Admission and Anticipated Discharge Date Admission Date: September 04, 2024 Subjective James's breathing is much better. On nasal cannula this am and room air by afternoon 100-200 out of chest tube overnight following massive output prior 24h BP improved compared to yesterday afternoon Had a left anterior chest pain with breathing this am - short lived and resolved Physical Exam 2 Physical Exam: Last 24h vitals reviewed GEN: up in bed, frail appearing, alert, nasal cannula HEENT: pupils equal, sclerae anicteric, moist MM RESP: WOB comfortable, Rt chest tube with bloody output, breath sounds now present in right upper alcala, clear on L CV: irregularly irregular with no murmur, EJ's are visible ABD: soft/nt/nd +BT. question of fluid wave/ascites. with pocus I didn't see any obvious/large ascites : Grissom catheter extremities: anasarca improved of arms and legs, however still has a lot of thigh/flank/abdominal wall edema. wwp x 4 SKIN: warm and dry, no generalized rashes, extensive scattered ecchymoses. NEURO: Ox person, place, and basic situation, mildly forgetful, [place]. Face symmetric, speech normal, moves 4 ext spontaneously and equally Results & Data Results & Data Vital Signs (Past 12 Hours) Vital Signs Temp Pulse Pulse Resp BP Pulse Ox O2 Del Method 09/06/24 15:09 37.4 C 73 18 90/48 L 94 Room Air 09/06/24 14:29 84 09/06/24 11:14 36.5 C 65 18 103/56 L 97 Room Air 09/06/24 09:06 99/58 L 09/06/24 07:50 Room Air, Nasal Cannula 09/06/24 07:00 74 09/06/24 07:00 36.3 C L 72 18 86/53 L 97 Nasal Cannula O2 Flow Rate 09/06/24 15:09 09/06/24 14:29 09/06/24 11:14 09/06/24 09:06 09/06/24 07:50 1 09/06/24 07:00 09/06/24 07:00 2 Laboratory Results 09/06/24 14:09 09/06/24 06:18 PG Care Time/CCT Total # of Minutes Spent Total Time Spent with Patient: Total time spent is greater than 50% in coordination of care (as documented) at patient's floor/unit and/or counseling patient: Coding Level of Care Code 97868 SUB INP/OBS CARE 3/50MIN Diagnoses Pleural effusion J90 Acute respiratory failure J96.00 Multiple myeloma C90.00 Atrial fibrillation I48.91
[2024-09-06] MEDS: ACETAMINOPHEN 325 MG TAB PO PRN (20:17)
[2024-09-06] MEDS: MELATONIN 3 MG TAB PO PRN (23:42)
[2024-09-07 07:38] LABS: Hematocrit (blood only) 22.7 % (42.0-52.0); Hemoglobin 7.1 g/dl (14.0-18.0); Mean Corpuscular Hemoglobin 32.7 pg (25.0-34.0); Mean Corpuscular Volume 104.6 fL (80.0-100.0); Platelet Count 142 K/uL (130-400); RDW Standard Deviation 64.9 fL (36.4-46.3); Red Blood Count 2.17 M/uL (4.70-6.10); White Blood Count 2.31 K/ul (4.8-10.8)
--- NOTE | 2024-09-07 07:45 | XRay Report ---
EXAM: XR chest 1V portable CLINICAL HISTORY: None TECHNIQUE: An X-ray image of the chest is obtained in AP projection. COMPARISON: 09/06/2024 06:01:47 [employer] FINDINGS: Pulmonary Parenchyma: Homogeneous ground glassing is noted involving right lung as compared to its counter part-new finding. Chest tube seen in situ, in the right lower hemithorax, in right 8th intercostal space. Interval stable homogeneous opacification of the right lower zone obscuring the right costophrenic recess. Minimal pleural reaction right costophrenic recess. Heart and Mediastinum: Cardiomegaly with bilateral hilar congestion. No mediastinal widening or masses. No hilar or mediastinal lymphadenopathy. Bony Thorax: Bony thorax appears intact without fractures or deformities. Soft Tissues: Soft tissues overlying the chest wall are unremarkable. IMPRESSION: Chest tube seen in situ on right side(unchanged). Homogeneous ground glassing is noted involving right lung as compared to its counter part-new finding. Interval stable homogeneous opacification of the right lower zone obscuring the right costophrenic recess. Mild pleural effusion. Small/minimal pleural reaction at the left costophrenic recess. Minimal left pleural effusion.-stable. Cardiomegaly with bilateral hilar congestion. Electronically signed by Tyler Mendoza 09-07-2024 07:45 AM
[2024-09-07 07:57] LABS: Anion Gap 2.0 (3-11); Blood Urea Nitrogen 19.0 mg/dl (6-23); Calcium 7.6 mg/dl (8.6-10.3); Carbon Dioxide 33.0 mmol/L (21-32); Chloride 104.0 mmol/L (98-107); Creatinine Clr Calc Pharmacy 77.4 ml/min; Glucose 102.0 mg/dl (70-99(Fasting)); Potassium 3.9 mmol/L (3.5-5.1); Sodium 139.0 mmol/L (136-145)
--- NOTE | 2024-09-07 10:54 | Pulmonology Progress Note ---
Date of Service September 07, 2024 Assessment & Plan (1) Large pleural effusion: (2) Rib fractures: (3) Acute dyspnea: (4) Acute hypoxemic respiratory failure: Plan Impression: 89-year-old male with history of multiple myeloma recently admitted with necrotizing fasciitis. Admitted now with massive pleural effusion. He has rib fractures noted on his CT scan. He is anticoagulated. Differential would include malignant effusion although appears less likely given the rapid increase. Hemothorax is more likely given the rib fractures and his acute anticoagulation. Drainage is warranted. Recommendation: 1. Pleural effusion: 14 Romansh chest tube placed 09/05/2024. Pleural fluid exudative by lights criteria and bloody with clot noted in chest tube. Pleural fluid cytology with blood and blood products. Microbiologic analysis showing no growth to date. Chest x-ray shows marked improvement of right pleural effusion with moderate residual effusion remaining. Chest tube appropriately positioned. Repeat CT chest in am to evaluate right effusion/hemothorax. 2. Hypoxemia: Improved with drainage of the pleural effusion. 97% on room air. 3. Rib fractures: Continue supportive management. Pain control. Given the possibility of discontinuation of next, would favor discontinuation of anticoagulation at this point in time and follow clinically. 4. Patient's son is requesting to meet with palliative care. Will defer to primary admitting service. Will follow the patient based on results of the pleural fluid. Thanks for the opportunity participating the care of this patient. Feel free to reach out to us with questions or concerns Admission and Anticipated Discharge Date Admission Date: September 04, 2024 Supervising Physician Co-Signing Physician Notes I saw and evaluated the patient with VIET Darnell, and agree with findings and plan as documented in the note. Patient seen and examined at bedside. No acute distress, no adverse events overnight Was saturating 97-98% on room air Denies any chest discomfort No nausea or vomiting Fair appetite Denied any pleuritic chest pain or taking deep breaths. Constitutional: No acute distress HEENT: EOMI, PERRLA Respiratory system: Decreased air entry on the right side, no wheeze, no rhonchi, positive crackles bilateral lower lobes CVS: S1-S2 positive, no murmurs or gallops Abdomen: Soft, nontender, nondistended, positive bowel sounds x4 Extremities: +2 pulses bilaterally radialis/ dorsalis pedis, no cyanosis, +1 pitting edema bilateral lower extremity Neuro: Awake alert oriented x3 Psych: Normal mood and affect G/U: Positive Grissom Plan: Chest x-ray from today personally reviewed, pleural effusion still persist on the right side, although it has significantly improved compared to before. The chest tube did have a clot which has been flushed yesterday as well as today personally by me. The drainage is more serosanguineous now rather than sanguinous. Increase the suction to -[address] chest in the morning to see how it looks like H&H is stable Continue to hold anticoagulation Case was discussed with RN at bedside Please note the above document was generated using voice recognition software. It may contain grammatical, syntax or spelling errors.Any formal questions or concerns about the content, text or information contained within the body of this dictation should be directly addressed to the provider for clarification. Subjective "My breathing feels better than when I saw you yesterday." Pigtail catheter drainage slowed down to 160ml output in last 24hrs. clots noted at proximal pigtail at Marylou connection site. Chest tube flushed distally and proximally no resistance noted this am. Chest tube suction increased to -40 of suction. Will plan to follow up with CT chest in am to evaluate hemothorax. Patient breathing is subjectively improved and SpO2 96% on 1L NC. Review of Systems 2 Review of Systems: All systems reviewed & are unremarkable except as noted in HPI & below Physical Exam 2 Constitutional: + frail appearing; no acute distress Neck: trachea midline, no thyromegaly Respiratory: + labored breathing and + tachypneic Auscultation: + diminished lung sounds Decreased breath sounds with dullness to percussion right lung alcala Cardiovascular: RRR, no murmur, no edema Gastrointestinal (Abdomen): normal bowel sounds, soft, nontender, no hepatosplenomegaly Musculoskeletal: Extremities: extremities normal to inspection Skin: no rashes, warm and dry Neurologic: Nonfocal exam Lymphatic: no cervical lymphadenopathy Results & Data Results & Data Vital Signs (Past 12 Hours) Vital Signs Temp Pulse Pulse Resp BP Pulse Ox O2 Del Method 09/07/24 07:52 36.5 C 69 20 90/61 L 98 Nasal Cannula 09/07/24 07:43 71 09/07/24 07:12 Nasal Cannula 09/07/24 04:37 106/65 09/07/24 03:48 36.8 C 77 18 92/50 L 96 Nasal Cannula 09/06/24 23:42 36.8 C 88 18 108/57 L 98 Nasal Cannula O2 Flow Rate 09/07/24 07:52 1 09/07/24 07:43 09/07/24 07:12 1 09/07/24 04:37 09/07/24 03:48 1 09/06/24 23:42 1 Laboratory Results 09/07/24 07:02 09/07/24 07:02 Abnormal Lab Results 09/06/24 09/07/24 09/07/24 14:09 07:02 07:27 WBC 2.31 L RBC 2.17 L Hgb 8.9 L 7.1 L Hct 22.7 L MCV 104.6 H MCH 32.7 MCHC 31.3 L RDW Std Deviation 64.9 H RDW Coeff of Ezequiel 17.5 H Plt Count 142 MPV 11.1 Sodium 139 Potassium 3.9 Chloride 104 Carbon Dioxide 33 H Anion Gap 2 L BUN 19 Creatinine 0.71 Est Cr Clr Drug Dosing 77.4 eGFR 87.70 BUN/Creatinine Ratio 26.8 H Glucose 102 H POC Glucose 97 Calcium 7.6 L Blood Type A Positive Antibody Screen NEGATIVE Diagnostic Findings Chest X-Ray 09/07/24 07:00 EXAM: XR chest 1V portable CLINICAL HISTORY: None TECHNIQUE: An X-ray image of the chest is obtained in AP projection. COMPARISON: 09/06/2024 06:01:47 [facility] FINDINGS: Pulmonary Parenchyma: Homogeneous ground glassing is noted involving right lung as compared to its counter part-new finding. Chest tube seen in situ, in the right lower hemithorax, in right 8th intercostal space. Interval stable homogeneous opacification of the right lower zone obscuring the right costophrenic recess. Minimal pleural reaction right costophrenic recess. Heart and Mediastinum: Cardiomegaly with bilateral hilar congestion. No mediastinal widening or masses. No hilar or mediastinal lymphadenopathy. Bony Thorax: Bony thorax appears intact without fractures or deformities. Soft Tissues: Soft tissues overlying the chest wall are unremarkable. IMPRESSION: Chest tube seen in situ on right side(unchanged). Homogeneous ground glassing is noted involving right lung as compared to its counter part-new finding. Interval stable homogeneous opacification of the right lower zone obscuring the right costophrenic recess. Mild pleural effusion. Small/minimal pleural reaction at the left costophrenic recess. Minimal left pleural effusion.-stable. Cardiomegaly with bilateral hilar congestion. Electronically signed by Tyler Mendoza 09-07-2024 07:45 AM PG Care Time/CCT Total # of Minutes Spent Total Time Spent with Patient: Total time spent is greater than 50% in coordination of care (as documented) at patient's floor/unit and/or counseling patient: Coding Level of Care Code 30732 SUB INP/OBS CARE 2/35MIN Diagnoses Large pleural effusion J90 Rib fractures S22.49XA Acute dyspnea R06.00 Acute hypoxemic respiratory failure J96.01
--- NOTE | 2024-09-07 14:45 | Hospitalist Progress Note ---
Date of Service September 07, 2024 Assessment & Plan (1) Pleural effusion: (2) Acute respiratory failure: (3) Multiple myeloma: (4) Atrial fibrillation: Plan 89 years old male with PMH of DNR/DNI @ [facility] since 08/24/2024, overweight with BMI 26.7 (height 182.9 cm; weight 89.4 kg), chronic macrocytic, normochromic anemia with progressive decline in Hb range from 12.6 g/dL, MCV 103.8, MCHC 34.7 (02/10/2018, 8:13am) to 8.6 g/dL, MCV 101.6, MCHC 34.8 (08/24/2024, 5:42am), multiple myeloma (diagnosed on 11/20/2022, 9:46am bone marrow biopsy, [facility] Heme[facility]On[facility] Dr. Florencio Kingsley), subsequently treated with Revlimid and Velcade (starting in early July 2024), by [facility] Heme-On[facility] Dr. Florencio Kingsley, DVT on xarelto, ambulatory dysfunction resulting in mechanical fall at home alone, and acute right displaced intert rochanteric femur fracture with subtrochanteric extension, for which patient underwent closed reduction and insertion of right antegrade [place] gamma 4, [id number] mm intramedullary femoral nail (04/17/2024, [facility], Orthopedic Surgeon Dr. Phong Slater), followed by complaints of fevers, chills, poor oral intake with N/V/D at home, culminating in: (A) severe septic shock due to acute necrotizing fasciitis of right proximal/lateral thigh with Clostridium septicum+ right thigh wound culture (08/17/2024), s/p I & D (08/17/2024, 9:30pm, [facility], Orthopedic Surgeon Dr. Jaden Menendez), and coincident Clostrdium septicum- associated bacteremia (as noted in 1 of 2 anaerobic bottles only from 08/17/2024, 3:57pm blood cultures x 2), treated with clindamycin 900mg IV q8 x 17 doses (08/17/2024, 8pm 08/23, 4am) and penicillin 4 million units IV q4 x 25 doses (08/20/2024, 11:30am to 08/24/2024, 2:00pm) and pressor support with norepinephrine @ 8 micrograms/minute (08/17/2024 - 08/21/2024) and vasopressin 0.04 units/min (08/17/2024 - 08/19/2024) while in [facility] (08/17/2024 - 08/24/2024), (B) acute hypoxic respiratory failure requiring intubation (08/17/2024), then extubation (08/18/2024) at [facility]. (C) acute rhabdomyolysis with CK 1,278 U/L (08/17/2024, 3:12pm) and repeat CK 327 U/L (08/18/2024, 4:40am) with normal renal function (cf., creatinine 1.06 mg/dL (08/17/2024, 3:12pm) and repeat creatinine 0.99 mg/dL (08/17/2024, 11:40pm). (D) new onset, paroxysmal AFIB leading to acute PE/DVT, for which patient was restarted on his home-scheduled Xarelto. Patient was subsequently discharged to [facility] on 08/24/2024 with: 1. augmentin 875mg/125mg PO tid from 08/24/2024 - 08/31/2024, as per [facility] Infectious Disease Dr. [address]. 2. wound vac placed over patient's right proximal/lateral thigh wound, as per [facility] Infectious Disease Dr. [address]. 3. midodrine 10mg PO tid to treat persistent hypotension after titrating off pressor support with norepinephrine @ 8 micrograms/minute (08/17/2024 - 08/21/2024) and vasopressin 0.04 units/min (08/17/2024 - 08/19/2024) while in [facility] (08/17/2024 - 08/24/2024). Patient was also advised by his [facility] Dr. Florencio Kingsley to hold off Revlimid and Velcade until his follow up appointment with Dr. Kingsley on 09/02/2024 @ [facility]. Patient was subsequently sent back to [facility] ER on 09/04/2024 with complaints of progressively worsening SOB/LOTT for the previous 2 days. Patient was subsequently admitted to the inpatient hospitalist service @ [facility] on 09/04/2024 with the following diagnoses: 1. Acute hypoxic respiratory failure with O2 saturation 91% on room air (09/04/2024, 4:10pm), repeat O2 saturation 96% on high flow oxygen at 50 liters/minute (09/04/2024, 5:29pm) due to acute large right pleural effusion. 2. Acute fractures of right ribs #9 and #10 (lateral rib). 3. Chronic fractures of right ribs #10 (posterior rib) and #11. The following medical issues are being addressed on 09/07/2024: 1. Acute hypoxic respiratory failure with O2 saturation 91% on room air (09/04/2024, 4:10pm), repeat O2 saturation 96% on high flow oxygen at 50 liters/minute (09/04/2024, 5:29pm) due to acute large right pleural effusion. - Patient underwent therapeutic placement of right posterior 14 [place] pigtail catheter (09/05/2024, 7:00am, [facility] [employer] Dr. Christofer Chino) with 400 mL of blood fluid drained. Subsequently, acute hypoxic respiratory failure appears to be RESOLVING with patient titrated off high flow oxygen at 50 liters/minute (09/04/2024, 5:29pm), followed by high flow oxygen at 40 liters/minute (09/05/2024, 7:47am), followed by 2 liters/minute O2 via nasal cannula (09/05/2024, 11:20am), followed by 1 liter/minute O2 via nasal cannula (09/05/2024, 12:00pm; 09/07/2024, 3:48am). 2. Acute fractures of right ribs #9 and #10 (lateral rib). - Patient reports 0/10 pain on 09/16/2024 while continuing to receive tylenol 650mg PO q6 prn pain 1-10, headache, temp > 100.4 degrees Fahrenheit. 3. Chronic fractures of right ribs #10 (posterior rib) and #11. - Patient reports 0/10 pain on 09/16/2024 while continuing to receive tylenol 650mg PO q6 prn pain 1-10, headache, temp > 100.4 degrees Fahrenheit. 4. Persistent hypotension after titrating off pressor support with norepinephrine @ 8 micrograms/minute (08/17/2024 - 08/21/2024) and vasopressin 0.04 units/min (08/17/2024 - 08/19/2024) while in [facility] (08/17/2024 - 08/24/2024). cf., BP 90/61 (09/07/2024, 7:52am) on midodrine 100mg PO tid (8am, 12pm, 5pm) to maintain MAP > 65 mm Hg. D/C midodrine 100mg PO tid (8am, 12pm, 5pm) on 09/07/2024 as all three individuals (e.g., patient, patient's son, Mr. Ismael Patterson ( ), and patient's daughter, Ms. Divine Evans ( )) await family meeting with Palliative Care Ms. Moon Castano in the 09/07/2024, 9:30am to discuss the next step(s) in patient's care with anticipated D/C to [facility] or a long term facility for comfort measures only/hospice care in the next 24- 48 hours. The rub is that this patient has the mind/mental sharpness of a 40 years old man trapped in an 89 years old body that is literally falling apart, and the patient and his family members tacitly understand this reality of patient's morbidity. --- Post-hospital admission diagnoses include: 5. Acute blood loss anemia with progressive decline in Hb levels since admission date 09/04/2024: cf., Hb 10.1 g/dL, MCV 106.0, MCHC 31.8 (09/04/2024, 4:36pm). cf., Hb 9.1 g/dL, MCV 104.5, MCHC 32.6 (09/05/2024, 7:15am). cf., Hb 7.4 g/dL, MCV 104.5, MCHC 31.8 (09/06/2024, 6:18am). cf., Hb 8.9 g/dL, no MCV, no MCHC (09/06/2024, 2:09pm). cf., Hb 7.1 g/dL, MCV 104.6, MCHC 31.3 (09/07/2024, 7:02am). Patient reports no mucosal bleeding and remains hemodynamically stable. Etiology of acute blood loss anemia remains unclear, but is probably due to incipient sepsis with publication of Pseudomonas aeruginosa (as reported in 09/06/2024 right hip wound culture). In speaking with patient, patient's son, Mr. Ismael Patterson ( ), and patient's daughter, Ms. Divine Evans ( ), all agree to hold off from packed RBC transfusion even should patient's Hb level fall below 7 g/dL, or if patient should become orthostatic as a consequence of continued acute blood loss anemia. Moreover, all three individuals await family meeting with Palliative Care Ms. Moon Castano in the 09/07/2024, 9:30am to discuss the next step(s) in patient's care with anticipated D/C to [facility] or a long term facility for comfort measures only/hospice care in the next 24-48 hours. The rub is that this patient has the mind/mental sharpness of a 40 years old man trapped in an 89 years old body that is literally falling apart, and the patient and his family members tacitly understand this reality of patient's morbidity. 6. Pancytopenia with progressive declines in all 3 cell lines: WBC, RBC, and platelets cf., WBC 5.19, Hb 10.1 g/dL, MCV 106.0, MCHC 31.8, platelet 169 (09/04/2024, 4:36pm). cf., WBC 3.60, Hb 9.1 g/dL, MCV 104.5, MCHC 32.6, platelet 167 (09/05/2024, 7:15am). cf., WBC 2.84, Hb 7.4 g/dL, MCV 104.5, MCHC 31.8, platelet 133 (09/06/2024, 6:18am). cf., no WBC, Hb 8.9 g/dL, no MCV, no MCHC, no platelet (09/06/2024, 2:09pm). cf., WBC 2.31, Hb 7.1 g/dL, MCV 104.6, MCHC 31.3, platelet 142 (09/07/2024, 7:02am). Patient reports no fevers, chills, or diaphoresis on 09/07/2024. Etiology of pancytopenia remains unclear, but is probably due to incipient sepsis with publication of Pseudomonas aeruginosa (as reported in 09/06/2024 right hip wound culture). In speaking with patient, patient's son, Mr. Ismael Patterson ( ), and patient's daughter, Ms. Divine Evans ( ), all agree to hold off initiating anti-pseudomonal antibiotics. Moreover, all three individuals await family meeting with Palliative Care Ms. Moon Castano in the 09/07/2024, 9:30am to discuss the next step(s) in patient's care with anticipated D/C to [facility] or a long term facility for comfort measures only/hospice care in the next 24-48 hours. The rub is that this patient has the mind/mental sharpness of a 40 years old man trapped in an 89 years old body that is literally falling apart, and the patient and his family members tacitly understand this reality of patient's morbidity. 7. Chronic/persistent AFIB. cf., EKG (09/04/2024, 4:16pm): AFIB @ 78, QTC 408, < 0.[address] depression in V4, V5, no acute ST elevations; q in V2 (by my review). Patient remains asymptomatic with no complaints of chest pain or palpitations on 09/07/2024. In speaking with patient, patient's son, Mr. Ismael Patterson ([phone]), and patient's daughter, Ms. Divine Evans ( ), all agree to stop media monitor, metoprolol 12.5mg PO qam and xarelto 15mg PO daily. Moreover, all three individuals await family meeting with Palliative Care Ms. Moon Castano in the 09/07/2024, 9:30am to discuss the next step(s) in patient's care with anticipated D/C to [facility] or a long term facility for comfort measures only/hospice care in the next 24-48 hours. The rub is that this patient has the mind/mental sharpness of a 40 years old man trapped in an 89 years old body that is literally falling apart, and the patient and his family members tacitly understand this reality of patient's morbidity. Admission and Anticipated Discharge Date Admission Date: September 04, 2024 Subjective "I feel weak. No energy. Takes 2 people to get me up to go to the bathroom. The nurse said I am not making urine very much. My daughter, Divine Evans, flew in from [place] to see me today. My son, Ismael PattersonJr., will be in later tonight to see me. I have another son, Fausto Patterson; he is in [place] and he won't be coming in to see me, but I will talk to him on the phone. We are all having a family meeting tomorrow morning with the Palliative Care lady to see what the next step(s) will be." Review of Systems Constitutional: Positive for generalized weakness. Negative for antecedent/coincident fevers, chills, diaphoresis, cough, wheeze, sore throat, hemoptysis, chest pains, palpitations, pleurisy, nausea, vomiting, diarrhea, abdominal pain, pelvic pain, hematemesis, hematochezia, melena, hematuria, dysuria, frequency, urgency, headaches, dizziness, lightheadedness, visual changes, hearing changes, falls, syncope, trauma, travel history, sick contacts, or food/drug ingestions novel or new. All other review of systems are reported as negative by the patient on 09/07/2024. Physical Exam Constitutional: General: Run-down, worn-out, asthenic with mouth hanging wide open. Comfortable, cooperative, coherent. Wide awake and alert. Not confused, lethargic, or obtunded. Patient speaks in complete, fluent, and articulate sentences without pause, interruption, cough, or wheeze. HEENT: Normocephalic, atraumatic. Pupils equally round and reactive to light. No nystagmus, gaze paresis, anisocoria, miosis, mydriasis, hyphema, scleral injection, conjunctivitis, or pterygium. No otorrhea. No pharyngeal erythema, edema, or discharge. Neck: Supple, no stridor, bruit, goiter, or hepato-jugular reflux. Jugular venous pressure is estimated to be 3 cm above the sternal angle of Horacio, which in turn, is 5 cm above the level of the right atrium; with jugular venous pressure estimated to be 8 cm, then, there is no jugular venous distention on 09/07/2024. Lymphatics: No cervical (anterior/posterior), supraclavicular, infraclavicular, axillary, epitrochlear, or inguinal adenopathy. Chest: Symmetric rise and fall with respirations. Non-tender to palpation. Right-sided chest tube in situ (inserted on 09/05/2024, 7:00am, [facility] [employer] Dr. Christofer Chino) with expression of 400 mL of grossly bloody effluent removed. Lungs: Clear to auscultation and percussion. No audible expiratory wheeze, egophony, pectoriloquy, increase in tactile fremitus, or flatness/dullness to percussion at the bases. Heart: Regular rate. Irregularly irregular rhythm. S1 and S2 noted. No S3 or S4 summation gallop. No tripartite friction rub. Grade II/ early systolic murmur @ LLSB without radiation to the carotids, axilla, or back, and which remains invariant in regards to the respiratory cycle. Abdomen: Soft, non-tender, non-distended. No rebound, guarding, Osborne's sign, or organomegaly. Bowel sounds auscultated in all 4 quadrants. Extremities: No clubbing, cyanosis, or edema in upper extremities or lower extremities bilaterally. 2+ pedal pulses bilaterally. Skin: No decubitus ulcer or enanthem. Genito-urinary: No urethral discharge. + vargas catheter with 350 mL of urine expressed from 09/06/2024, 2:57pm through 09/07/2024, 2:57pm: 350 mL / 24 hours = 14.58 mL/hr urine production Neurology: Alert and oriented in regards to person, place, time, and situation. DTR+. 4/5 motor strength in all 4 extremities, both proximally and distally. No myoclonus, tremors, or tics. Psychiatry: No homicidal ideation. No suicidal ideation. No flat affect; smiles appropriately. Results & Data Results & Data Vital Signs (Past 12 Hours) Vital Signs Temp Pulse Pulse Resp BP Pulse Ox O2 Del Method 09/07/24 11:28 36.7 C 70 18 100/70 97 Nasal Cannula 09/07/24 07:52 36.5 C 69 20 90/61 L 98 Nasal Cannula 09/07/24 07:43 71 09/07/24 07:12 Nasal Cannula 09/07/24 04:37 106/65 09/07/24 03:48 36.8 C 77 18 92/50 L 96 Nasal Cannula O2 Flow Rate 09/07/24 11:28 1 09/07/24 07:52 1 09/07/24 07:43 09/07/24 07:12 1 09/07/24 04:37 09/07/24 03:48 1 Laboratory Results WBC 5.19, N75 L9 M15, Hb 10.1, MCV 106.0, MCHC 31.8, platelet 169 (09/04/2024, 4:36pm). WBC 3.60, no differential, Hb 9.1, MCV 104.5, MCHC 32.6, platelet 167 (09/05/2024, 7:15am). WBC 2.84, no differential, Hb 7.4, MCV 104.5, MCHC 31.8, platelet 133 (09/06/2024, 6:18am). Hb 8.9 (09/06/2024, 2:09pm). WBC 2.31, no differential, Hb 7.1, MCV 104.6, MCHC 31.3, platelet 142 (09/07/2024, 7:02am). Right thigh wound culture (09/06/2024): Pseudomonas aeruginosa Right thigh wound culture (08/17/2024): Clostridium septicum ESR 31 mm/hr (09/07/2024, 12:11pm). Na 139, K 3.6, BUN 25, creatinine 0.8, glucose 190, Ca 8.3 (09/04/2024, 4:36pm). Na 141, K 3.4, BUN 25, creatinine 0.72, glucose 141, Ca 8.1 (09/05/2024, 7:15am). Na 141, K 3.5, BUN 21, creatinine 0.57, glucose 116, Ca 7.6 (09/06/2024, 2:09pm). Na 139, K 3.9, BUN 19, creatinine 0.71, glucose 102, Ca 7.6 (09/07/2024, 7:02am). Diagnostic Findings Portable CXR (09/04/2024, 4:20pm): 1. Complete opacification of the right hemithorax, consistent with enlarged pleural effusion from what was seen on prior 08/20/2024 portable CXR. 2. Smaller left pleural effusion is also appreciated. 3. Inferolateral right rib fractures. 4. No cardiomegaly, pulmonary vascular congestion, pneumothorax, or infiltrate. (by my review). CT chest without IV contrast (09/04/2024, 5:33pm): 1. Large right pleural effusion occupying the hemithorax, and compressing the right lung. 2. Small left pleural effusion. 3. Right ribs 9 and 10, contain displaced rib fractures, which may be acute. 4. There is also healing callus associated with a posterior right rib 11, and another portion of the posterior right rib 10, suggesting healing fractures. Portable CXR (, 6:54am). 1. Complete white out of right lung. (Minimal decrease in haziness compared to previous radiograph)-interval placement of tube. 2. Minimal blunting of left costophrenic angle with hazy left lower zone opacity. (Stable) 3. No cardiomegaly, pulmonary vascular congestion, pneumothorax, or infiltrate. (by my review). Portable CXR (09/06/2024, 7:00am): 1. Chest tube seen in situ. 2. Interval regressed, homogeneous opacification of the right lower zone obscuring the right costophrenic recess. Mild pleural effusion. 3. Small/minimal pleural reaction at the left costophrenic recess. Minimal left pleural effusion. 4. Cardiomegaly with bilateral hilar congestion. 5. Comparing the previous x-ray dated 09/05/2024, there is significant regressed right pleural effusion. 6. No pneumothorax. (by my review). Portable CXR (09/07/2024, 7:00am): 1. Chest tube seen in situ on right side(unchanged). 2. Homogeneous ground glassing is noted involving right lung as compared to its counter part-new finding. 3. Interval stable homogeneous opacification of the right lower zone obscuring the right costophrenic recess. Mild right pleural effusion. 4. Small/minimal pleural reaction at the left costophrenic recess. Minimal left pleural effusion.-stable. 5. Cardiomegaly with bilateral hilar congestion. 6. No pneumothorax. (by my review). PG Care Time/CCT Total # of Minutes Spent Total Time Spent with Patient: Total time spent is greater than 50% in coordination of care (as documented) at patient's floor/unit and/or counseling patient: Coding Level of Care Code 19891 SUB INP/OBS CARE 3/50MIN Diagnoses Pleural effusion J90 Acute respiratory failure J96.00 Multiple myeloma C90.00 Atrial fibrillation I48.91
--- NOTE | 2024-09-07 18:36 | Palliative Care Progress Note ---
Date of Service September 07, 2024 Assessment & Plan (1) Dyspnea and respiratory abnormalities: (2) Multiple myeloma: (3) Generalized weakness: (4) Palliative care by specialist: Plan Son returned my call mid day and asked for 0930 fam kyg tomorrow. Teams updated Thank you for allowing us to participate in the ongoing care of this patient. Please page with any additional concerns. 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 and has a vargas in place He feels the chest tube and cardiac monitoring is impeding him He denies pain or dyspnea cough persists, bronchitic he denies diminished appetite mood more subdued spoke with Dr Recinos and has elected to change code to DNR/DNI Review of Systems Review of Systems: All systems reviewed & are unremarkable except as noted in Subjective Physical Exam Constitutional: + ill appearing, + thin, + physical limi tations, + frail appearing and + disheveled Eyes: PERRL ENMT: Ears: + hearing impairment Mouth: + dental restorations and + chipped teeth Neck: trachea midline; no tracheal deviation and neck nontender Thyroid: no thyromegaly Respiratory: + cough (bronchitic), able to speak in c omplete sentences and symmetric chest movement Auscultation: + diminished lung sounds ( right > left) and + crackles Chest tube right +serosang drainage Cardiovascular: Rate/Rhythm: + irregularly irregular Gastrointestinal (Abdomen): Inspection/Auscultation: + abdomen distended and normal bowel sounds Percussion/Palpation: abdomen soft; abdomen nontender and no guarding Musculoskeletal: right lateral thigh wound Skin: + turgor decreased, + wound (right thigh /lateral), + pallor and + brittle hair Psychiatric: AAOx3, slight intermittent confusion difficulty retaining information Results & Data Vital Signs (Past 12 Hours) Vital Signs Temp Pulse Pulse Resp BP Pulse Ox O2 Del Method 09/07/24 15:39 36.6 C 85 20 110/69 96 Nasal Cannula 09/07/24 14:49 68 09/07/24 11:28 36.7 C 70 18 100/70 97 Nasal Cannula 07/01/25 07:52 36.5 C 69 20 90/61 L 98 Nasal Cannula 09/07/24 07:43 71 09/07/24 07:12 Nasal Cannula O2 Flow Rate 09/07/24 15:39 1 09/07/24 14:49 09/07/24 11:28 1 09/07/24 07:52 1 09/07/24 07:43 09/07/24 07:12 1 Laboratory Results 09/07/24 09/07/24 09/07/24 Range/Units 12:11 07:27 07:02 WBC 2.31 L (4.8-10.8) K/ul RBC 2.17 L (4.70-6.10) M/uL Hgb 7.1 L (14.0-18.0) g/dl Hct 22.7 L (42.0-52.0) % MCV 104.6 H (80.0-100.0) fL MCH 32.7 (25.0-34.0) pg MCHC 31.3 L (32.0-36.0) g/dL RDW Std Deviation 64.9 H (36.4-46.3) fL RDW Coeff of Ezequiel 17.5 H (11.5-14.5) % Plt Count 142 (130-400) K/uL MPV 11.1 (9.4-12.4) fL Immature Gran % (Auto) % Neut % (Auto) % Lymph % (Auto) % [place] % (Auto) % Eos % (Auto) % Baso % (Auto) % Neut # (Auto) (1.40-6.50) K/uL Lymph # (Auto) (1.20-3.40) K/uL [place] # (Auto) (0.11-0.59) K/uL Eos # (Auto) (0.00-0.50) K/uL Baso # (Auto) (0.00-0.20) K/uL Immature Gran # (Auto) (0.01-0.20) K/uL ESR 31 H (0-20) mm/hr PT (9.0-12.0) Seconds INR (0.9-1.1) Sodium 139 (136-145) mmol/L Potassium 3.9 (3.5-5.1) mmol/L Chloride 104 (98-107) mmol/L Carbon Dioxide 33 H (21-32) mmol/L Anion Gap 2 L (3-11) BUN 19 (6-23) mg/dl Creatinine 0.71 (0.6-1.4) mg/dl Est Cr Clr Drug Dosing 77.4 ml/min eGFR 87.70 BUN/Creatinine Ratio 26.8 H (10-20) Glucose 102 H (70-99(Fasting)) mg/dl POC Glucose 97 (70-99) mg/dl Calcium 7.6 L (8.6-10.3) mg/dl Magnesium (1.7-2.4) mg/dl Total Bilirubin (0.2-1.0) mg/dl AST (13-39) U/L ALT (7-52) U/L Alkaline Phosphatase (34-104) U/L Lactate Dehydrogenase (86-244) U/L Troponin I High Sens (0-20) pg/ml C-Reactive Protein 6.04 H (0-0.5) mg/dl B-Natriuretic Peptide (0-100) pg/ml Total Protein (6.0-8.3) gm/dl Albumin (3.4-5.0) gm/dl Globulin (2.5-4.0) gm/dl Albumin/Globulin Ratio (0.9-2) Urine Color Urine Appearance (Clear) Urine pH (4.5-7.5) Ur Specific [place] (1.000-1.030) Urine Protein (Negative) Urine Glucose (UA) (Negative) Urine Ketones (Negative) Urine Blood (Negative) Urine Nitrite (Negative) Urine Bilirubin (Negative) Urine Urobilinogen (Negative) Ur Leukocyte Esterase (Negative) Urine WBC (Auto) (0-5) /hpf Urine RBC (Auto) (0-2) /hpf U Hyaline Cast (Auto) (0-2) /lpf U Epithel Cells (Auto) (0-2) /hpf Urine Bacteria (Auto) (None Seen) Hyaline Casts (None Presnt) /lpf Urine Mucus (None Prsent) Urine Comment Fluid Neutrophils % % Fluid Lymphocytes % % Fluid Basophils % % Fluid Meso/Macro/[place] % % Fluid Comment Pleural Fluid Source Pleural Color Pleural Appearance Pleural pH (7.3-7.4) Pleural WBC (Auto) /uL Pleural RBC (Auto) /uL Pleural Total Protein gm/dl Pleural LDH U/L Pleural Glucose mg/dl Nasal Screen MRSA (PCR) (Negative) Adenovirus (PCR) (NotDetected) B. pertussis DNA (PCR) (NotDetected) B.parapertussis DNA PCR (NotDetected) C. pneumoniae DNA (PCR) (NotDetected) Coronavirus OC43 (PCR) (NotDetected) Coronavirus HKU1 (PCR) (NotDetected) Coronavirus 229E (PCR) (NotDetected) SARS-CoV-2 (PCR) (NotDetected) Coronavirus NL63 (PCR) (NotDetected) Human Metapneumovir PCR (NotDetected) Influenza Type A (PCR) (NotDetected) Influenza Type B (PCR) (NotDetected) M. pneumoniae (PCR) (NotDetected) Parainfluenza 1 (PCR) (NotDetected) Parainfluenza 2 (PCR) (NotDetected) Parainfluenza 3 (PCR) (NotDetected) Parainfluenza 4 (PCR) (NotDetected) RSV (PCR) (NotDetected) Entero/Rhino (PCR) (NotDetected) Blood Type Antibody Screen 09/06/24 09/06/24 09/05/24 Range/Units 14:09 06:18 Unknown WBC 2.84 L (4.8-10.8) K/ul RBC 2.23 L (4.70-6.10) M/uL Hgb 8.9 L 7.4 L (14.0-18.0) g/dl Hct 23.3 L (42.0-52.0) % MCV 104.5 H (80.0-100.0) fL MCH 33.2 (25.0-34.0) pg MCHC 31.8 L (32.0-36.0) g/dL RDW Std Deviation 66.0 H (36.4-46.3) fL RDW Coeff of Ezequiel 17.2 H (11.5-14.5) % Plt Count 133 (130-400) K/uL MPV 10.9 (9.4-12.4) fL Immature Gran % (Auto) % Neut % (Auto) % Lymph % (Auto) % [place] % (Auto) % Eos % (Auto) % Baso % (Auto) % Neut # (Auto) (1.40-6.50) K/uL Lymph # (Auto) (1.20-3.40) K/uL [place] # (Auto) (0.11-0.59) K/uL Eos # (Auto) (0.00-0.50) K/uL Baso # (Auto) (0.00-0.20) K/uL Immature Gran # (Auto) (0.01-0.20) K/uL ESR (0-20) mm/hr PT (9.0-12.0) Seconds INR (0.9-1.1) Sodium 141 (136-145) mmol/L Potassium 3.5 (3.5-5.1) mmol/L Chloride 105 (98-107) mmol/L Carbon Dioxide 34 H (21-32) mmol/L Anion Gap 2 L (3-11) BUN 21 (6-23) mg/dl Creatinine 0.57 L (0.6-1.4) mg/dl Est Cr Clr Drug Dosing 96.4 ml/min eGFR 93.71 BUN/Creatinine Ratio 36.8 H (10-20) Glucose 116 H (70-99(Fasting)) mg/dl POC Glucose (70-99) mg/dl Calcium 7.6 L (8.6-10.3) mg/dl Magnesium (1.7-2.4) mg/dl Total Bilirubin (0.2-1.0) mg/dl AST (13-39) U/L ALT (7-52) U/L Alkaline Phosphatase (34-104) U/L Lactate Dehydrogenase (86-244) U/L Troponin I High Sens (0-20) pg/ml C-Reactive Protein (0-0.5) mg/dl B-Natriuretic Peptide (0-100) pg/ml Total Protein (6.0-8.3) gm/dl Albumin (3.4-5.0) gm/dl Globulin (2.5-4.0) gm/dl Albumin/Globulin Ratio (0.9-2) Urine Color Urine Appearance (Clear) Urine pH (4.5-7.5) Ur Specific [place] (1.000-1.030) Urine Protein (Negative) Urine Glucose (UA) (Negative) Urine Ketones (Negative) Urine Blood (Negative) Urine Nitrite (Negative) Urine Bilirubin (Negative) Urine Urobilinogen (Negative) Ur Leukocyte Esterase (Negative) Urine WBC (Auto) (0-5) /hpf Urine RBC (Auto) (0-2) /hpf U Hyaline Cast (Auto) (0-2) /lpf U Epithel Cells (Auto) (0-2) /hpf Urine Bacteria (Auto) (None Seen) Hyaline Casts (None Presnt) /lpf Urine Mucus (None Prsent) Urine Comment Fluid Neutrophils % 84 % Fluid Lymphocytes % 11 % Fluid Basophils % 2 % Fluid Meso/Macro/[place] % 3 % Fluid Comment Pleural Fluid Source Right Lung Pleural Color Red Pleural Appearance Bloody Pleural pH 7.35 (7.3-7.4) Pleural WBC (Auto) 3125 /uL Pleural RBC (Auto) 431027 /uL Pleural Total Protein 3.2 gm/dl Pleural LDH 350 U/L Pleural Glucose 92 mg/dl Nasal Screen MRSA (PCR) (Negative) Adenovirus (PCR) (NotDetected) B. pertussis DNA (PCR) (NotDetected) B.parapertussis DNA PCR (NotDetected) C. pneumoniae DNA (PCR) (NotDetected) Coronavirus OC43 (PCR) (NotDetected) Coronavirus HKU1 (PCR) (NotDetected) Coronavirus 229E (PCR) (NotDetected) SARS-CoV-2 (PCR) (NotDetected) Coronavirus NL63 (PCR) (NotDetected) Human Metapneumovir PCR (NotDetected) Influenza Type A (PCR) (NotDetected) Influenza Type B (PCR) (NotDetected) M. pneumoniae (PCR) (NotDetected) Parainfluenza 1 (PCR) (NotDetected) Parainfluenza 2 (PCR) (NotDetected) Parainfluenza 3 (PCR) (NotDetected) Parainfluenza 4 (PCR) (NotDetected) RSV (PCR) (NotDetected) Entero/Rhino (PCR) (NotDetected) Blood Type A Positive Antibody Screen NEGATIVE 09/05/24 09/05/24 09/04/24 Range/Units 07:15 07:15 23:05 WBC 3.60 L (4.8-10.8) K/ul RBC 2.67 L (4.70-6.10) M/uL Hgb 9.1 L (14.0-18.0) g/dl Hct 27.7 L 27.9 L (42.0-52.0) % MCV 104.5 H (80.0-100.0) fL MCH 34.1 H (25.0-34.0) pg MCHC 32.6 (32.0-36.0) g/dL RDW Std Deviation 65.5 H (36.4-46.3) fL RDW Coeff of Ezequiel 17.3 H (11.5-14.5) % Plt Count 167 (130-400) K/uL MPV 10.9 (9.4-12.4) fL Immature Gran % (Auto) % Neut % (Auto) % Lymph % (Auto) % [place] % (Auto) % Eos % (Auto) % Baso % (Auto) % Neut # (Auto) (1.40-6.50) K/uL Lymph # (Auto) (1.20-3.40) K/uL [place] # (Auto) (0.11-0.59) K/uL Eos # (Auto) (0.00-0.50) K/uL Baso # (Auto) (0.00-0.20) K/uL Immature Gran # (Auto) (0.01-0.20) K/uL ESR (0-20) mm/hr PT (9.0-12.0) Seconds INR (0.9-1.1) Sodium 141 (136-145) mmol/L Potassium 3.4 L (3.5-5.1) mmol/L Chloride 102 (98-107) mmol/L Carbon Dioxide 34 H (21-32) mmol/L Anion Gap 5 (3-11) BUN 25 H (6-23) mg/dl Creatinine 0.72 (0.6-1.4) mg/dl Est Cr Clr Drug Dosing 76.3 ml/min eGFR 87.33 BUN/Creatinine Ratio 34.7 H (10-20) Glucose 141 H (70-99(Fasting)) mg/dl POC Glucose (70-99) mg/dl Calcium 8.1 L (8.6-10.3) mg/dl Magnesium (1.7-2.4) mg/dl Total Bilirubin 0.9 (0.2-1.0) mg/dl AST 12 L (13-39) U/L ALT 12 (7-52) U/L Alkaline Phosphatase 131 H (34-104) U/L Lactate Dehydrogenase 123 (86-244) U/L Troponin I High Sens (0-20) pg/ml C-Reactive Protein (0-0.5) mg/dl B-Natriuretic Peptide (0-100) pg/ml Total Protein 5.6 L (6.0-8.3) gm/dl Albumin 2.5 L (3.4-5.0) gm/dl Globulin 3.1 (2.5-4.0) gm/dl Albumin/Globulin Ratio 0.8 L (0.9-2) Urine Color Urine Appearance (Clear) Urine pH (4.5-7.5) Ur Specific [place] (1.000-1.030) Urine Protein (Negative) Urine Glucose (UA) (Negative) Urine Ketones (Negative) Urine Blood (Negative) Urine Nitrite (Negative) Urine Bilirubin (Negative) Urine Urobilinogen (Negative) Ur Leukocyte Esterase (Negative) Urine WBC (Auto) (0-5) /hpf Urine RBC (Auto) (0-2) /hpf U Hyaline Cast (Auto) (0-2) /lpf U Epithel Cells (Auto) (0-2) /hpf Urine Bacteria (Auto) (None Seen) Hyaline Casts (None Presnt) /lpf Urine Mucus (None Prsent) Urine Comment Fluid Neutrophils % % Fluid Lymphocytes % % Fluid Basophils % % Fluid Meso/Macro/[place] % % Fluid Comment Pleural Fluid Source Pleural Color Pleural Appearance Pleural pH (7.3-7.4) Pleural WBC (Auto) /uL Pleural RBC (Auto) /uL Pleural Total Protein gm/dl Pleural LDH U/L Pleural Glucose mg/dl Nasal Screen MRSA (PCR) Negative (Negative) Adenovirus (PCR) (NotDetected) B. pertussis DNA (PCR) (NotDetected) B.parapertussis DNA PCR (NotDetected) C. pneumoniae DNA (PCR) (NotDetected) Coronavirus OC43 (PCR) (NotDetected) Coronavirus HKU1 (PCR) (NotDetected) Coronavirus 229E (PCR) (NotDetected) SARS-CoV-2 (PCR) (NotDetected) Coronavirus NL63 (PCR) (NotDetected) Human Metapneumovir PCR (NotDetected) Influenza Type A (PCR) (NotDetected) Influenza Type B (PCR) (NotDetected) M. pneumoniae (PCR) (NotDetected) Parainfluenza 1 (PCR) (NotDetected) Parainfluenza 2 (PCR) (NotDetected) Parainfluenza 3 (PCR) (NotDetected) Parainfluenza 4 (PCR) (NotDetected) RSV (PCR) (NotDetected) Entero/Rhino (PCR) (NotDetected) Blood Type Antibody Screen 09/04/24 09/04/24 09/04/24 Range/Units 17:50 16:37 16:36 WBC 5.19 (4.8-10.8) K/ul RBC 3.00 L (4.70-6.10) M/uL Hgb 10.1 L (14.0-18.0) g/dl Hct 31.8 L (42.0-52.0) % MCV 106.0 H (80.0-100.0) fL MCH 33.7 (25.0-34.0) pg MCHC 31.8 L (32.0-36.0) g/dL RDW Std Deviation 66.3 H (36.4-46.3) fL RDW Coeff of Ezequiel 17.2 H (11.5-14.5) % Plt Count 169 (130-400) K/uL MPV 11.1 (9.4-12.4) fL Immature Gran % (Auto) 0.2 % Neut % (Auto) 75.3 % Lymph % (Auto) 8.9 % [place] % (Auto) 15.2 % Eos % (Auto) 0.2 % Baso % (Auto) 0.2 % Neut # (Auto) 3.91 (1.40-6.50) K/uL Lymph # (Auto) 0.46 L (1.20-3.40) K/uL [place] # (Auto) 0.79 H (0.11-0.59) K/uL Eos # (Auto) 0.01 (0.00-0.50) K/uL Baso # (Auto) 0.01 (0.00-0.20) K/uL Immature Gran # (Auto) 0.01 (0.01-0.20) K/uL ESR (0-20) mm/hr PT 15.2 H (9.0-12.0) Seconds INR 1.4 H (0.9-1.1) Sodium 139 (136-145) mmol/L Potassium 3.6 (3.5-5.1) mmol/L Chloride 101 (98-107) mmol/L Carbon Dioxide 32 (21-32) mmol/L Anion Gap 6 (3-11) BUN 25 H (6-23) mg/dl Creatinine 0.80 (0.6-1.4) mg/dl Est Cr Clr Drug Dosing 68.7 ml/min eGFR 84.59 BUN/Creatinine Ratio 31.3 H (10-20) Glucose 190 H (70-99(Fasting)) mg/dl POC Glucose (70-99) mg/dl Calcium 8.3 L (8.6-10.3) mg/dl Magnesium 1.9 (1.7-2.4) mg/dl Total Bilirubin 0.8 (0.2-1.0) mg/dl AST 15 (13-39) U/L ALT 13 (7-52) U/L Alkaline Phosphatase 159 H (34-104) U/L Lactate Dehydrogenase (86-244) U/L Troponin I High Sens 11.9 (0-20) pg/ml C-Reactive Protein (0-0.5) mg/dl B-Natriuretic Peptide 328 H (0-100) pg/ml Total Protein 6.2 (6.0-8.3) gm/dl Albumin 2.6 L (3.4-5.0) gm/dl Globulin 3.6 (2.5-4.0) gm/dl Albumin/Globulin Ratio 0.7 L (0.9-2) Urine Color Dark Yellow Urine Appearance Clear (Clear) Urine pH 5.5 (4.5-7.5) Ur Specific [place] 1.020 (1.000-1.030) Urine Protein 1+ H (Negative) Urine Glucose (UA) Negative (Negative) Urine Ketones Trace H (Negative) Urine Blood 1+ H (Negative) Urine Nitrite Negative (Negative) Urine Bilirubin Negative (Negative) Urine Urobilinogen Negative (Negative) Ur Leukocyte Esterase Negative (Negative) Urine WBC (Auto) 0-5 (0-5) /hpf Urine RBC (Auto) >20 H (0-2) /hpf U Hyaline Cast (Auto) 6-10 H (0-2) /lpf U Epithel Cells (Auto) 0-2 (0-2) /hpf Urine Bacteria (Auto) None Seen (None Seen) Hyaline Casts Present A (None Presnt) /lpf Urine Mucus Present A (None Prsent) Urine Comment Fluid Neutrophils % % Fluid Lymphocytes % % Fluid Basophils % % Fluid Meso/Macro/[place] % % Fluid Comment Pleural Fluid Source Pleural Color Pleural Appearance Pleural pH (7.3-7.4) Pleural WBC (Auto) /uL Pleural RBC (Auto) /uL Pleural Total Protein gm/dl Pleural LDH U/L Pleural Glucose mg/dl Nasal Screen MRSA (PCR) (Negative) Adenovirus (PCR) Not Detected (NotDetected) B. pertussis DNA (PCR) Not Detected (NotDetected) B.parapertussis DNA PCR Not Detected (NotDetected) C. pneumoniae DNA (PCR) Not Detected (NotDetected) Coronavirus OC43 (PCR) Not Detected (NotDetected) Coronavirus HKU1 (PCR) Not Detected (NotDetected) Coronavirus 229E (PCR) Not Detected (NotDetected) SARS-CoV-2 (PCR) Not Detected (NotDetected) Coronavirus NL63 (PCR) Not Detected (NotDetected) Human Metapneumovir PCR Not Detected (NotDetected) Influenza Type A (PCR) Not Detected (NotDetected) Influenza Type B (PCR) Not Detected (NotDetected) M. pneumoniae (PCR) Not Detected (NotDetected) Parainfluenza 1 (PCR) Not Detected (NotDetected) Parainfluenza 2 (PCR) Not Detected (NotDetected) Parainfluenza 3 (PCR) Not Detected (NotDetected) Parainfluenza 4 (PCR) Not Detected (NotDetected) RSV (PCR) Not Detected (NotDetected) Entero/Rhino (PCR) Not Detected (NotDetected) Blood Type Antibody Screen PG Care Time/CCT Total # of Minutes Spent Total Time Spent: 45 Total Time Spent with Patient: Total time spent is greater than 50% in coordination of care (as documented) at patient's floor/unit and/or counseling patient: [place]oding [place] [address] SUB INP/OBS CARE 3/50MIN Patient Type Established History Comprehensive Exam Comprehensive Medical Decision Making Moderate Complexity Diagnoses Dyspnea and respiratory abnormalities R06.00; R06.89 Multiple myeloma C90.00 Generalized weakness R53.1 Palliative care by specialist Z51.5
--- NOTE | 2024-09-08 07:15 | CT Scan Report ---
EXAM: CT chest diagnostic wo con CLINICAL HISTORY: Eval right hemothroax s/p pigatil TECHNIQUE: Contiguous axial images were obtained from the neck base through the upper abdomen without contrast. In addition, sagittal and coronal reconstructions were performed to potentially increase the sensitivity for the detection of disease. CT scan was performed according to ALARA (as low as reasonable achievable). COMPARISON: None. FINDINGS: Moderate to gross right sided pleural effusion with collapse consolidation of right lower lobe is seen. Mild free air is noted involving right pleural space at anterior aspect - suggestive of pneumothorax . The drainage tube is seen in right side with tip is noted in pleural space. Mild left sided pleural effusion with passive subsegmental collapse of left lower lobe is seen. Old fracture with callus formation is noted involving right 3-5 and right 11 ribs. Rest of the lungs are clear.The central airways are patent. Evaluation of the mediastinum and amber is limited due to the lack of intravenous contrast. No axillary or mediastinal adenopathy is identified. The thyroid is unremarkable. The heart, aorta, and pulmonary arteries are of normal size and configuration. There are coronary artery and aortic atherosclerotic calcifications. No pericardial effusion is identified. Imaged portions of the upper abdomen are unremarkable. No aggressive appearing osseous lesions are identified. IMPRESSION: 1. Moderate to gross right sided pleural effusion with collapse consolidation of right lower lobe is seen.-( reduce the amount of pleural collection/effusion as compared to prior study with reinflation of right upper and middle lobes is seen) 2. Mild free air is noted involving right pleural space at anterior aspect - suggestive of pneumothorax, could be post procedural.-new finding. 3. The drainage tube is seen in right side with tip is noted in pleural space.- new interval placement. 4. Mild left sided pleural effusion with passive subsegmental collapse of left lower lobe is seen.-stable. 5. Old fracture with callus formation is noted involving right 3-5 and right 11 ribs.-stable. Electronically signed by Tyler Mendoza 09-08-2024 07:14 AM
--- NOTE | 2024-09-08 07:48 | XRay Report ---
EXAM: XR chest 1V portable CLINICAL HISTORY: hemothorax TECHNIQUE: An X-ray image of the chest is obtained in AP projection. COMPARISON: 09/07/2024 CR. FINDINGS: Pulmonary Parenchyma: Chest tube on the right lower chest seen in situ, in the right 7th intercostal space. Interval stable, homogeneous opacification of right lower zone obscuring the right costophrenic recess. Interval stable, mild pleural reaction at the left costophrenic recess causing the blunting of CP angle. Heart and Mediastinum: Cardiomegaly with bilateral hilar congestion. No mediastinal widening or masses. No hilar or mediastinal lymphadenopathy. Bony Thorax: Bony thorax appears intact without fractures or deformities. Soft Tissues: Soft tissues overlying the chest wall are unremarkable. IMPRESSION: 1. Chest tube seen in situ on the right lower chest, in the right 7th intercostal space. 2. Interval stable, homogeneous opacification of the right lower zone obscuring the right costophrenic recess. Mild pleural effusion. 3. Small pleural reaction at the left costophrenic recess causing the blunting of the CP angle. Minimal pleural effusion. 4. Comparing the previous x-ray dated 09/07/2024, the findings remain stable. Electronically signed by Bc Garcia 09-08-2024 07:47 AM
--- NOTE | 2024-09-08 09:09 | Palliative Family Discussion ---
Date of Service September 08, 2024 Patient Directed Conference Time of [id number] Participants: Jyothi Denise DNP Patient participation: yes Patient Support System: son and daughter Other Healthcare Provider Participation: None Meeting Location: bedside Advanced Directive available: [Yes/No] If yes, descriptors: The patient's surrogate medical decision maker participated: yes, son Legally authorized health care proxy: son Other surrogate: daughter This ACP family meeting was held for GEORGE ROCHA. This meeting was necessary for determining the appropriate course of treatment. Topics of Discussion Topics of Discussion: 1. 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 He was found to have a massive pleural effusion, along with +rib fractures noted on his CT scan. He is anticoagulated. Differential would include malignant effusion although appears less likely given the rapid increase. He had a 14 Serbian chest tube placed 09/05/2024. Pleural fluid exudative by lights criteria and bloody with clot noted in chest tube. Pleural fluid cytology with blood and blood products. Microbiologic analysis showing no growth to date. Chest x-ray shows marked improvement of right pleural effusion with moderate residual effusion remaining. A repeat CT chest is planned for today to evaluate right effusion/hemothorax. 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 He had debridement, treatment with antibiotics, and was discharged to [facility] for rehab, completing a full course of Bactrim. Wound care is following his thigh wound. 2. James saw Dr. Kingsley/[facility] in clinic last week; James was advised hes too sick for myeloma treatment right now - needs to recover and rehab. Per Dr. Kingsley's discussion with Dr. Alfaro, Mac been somewhat confused last few visits and not his usual self. Dr Kingsley thinks the recent addition of the Velcade tipped him over to this current crisis. Dr. Kingsley said he would come do social visit. James perceived Dr Kingsley told him they need to get more aggressive with his chemo but per Dr. Kingsley, this was said in discussion several months ago, when they started Velcade. Prior to Velcade, James had been controlled for a long time on single agent Revlimid. 3. During the August 2024 admission he required ACLS protocol and pressor support in ICU. He was in septic and circulatory shock. His family discussions with [facility] at that time indicated he would not want to be maintained on life support if he is not improving. In my discussions with him Friday and Friday this week, he was firm on this as well, and also noted that if he isn't going to get better then he would not want a dying process being "dragged out" with a preference to be home and with family at the end of his life, if at all possible. 4. I met with Leonardo gee. Reviewed changes to date and advised them Dr Kingsley ([facility] doc) does not plan to initiate any aggressive chemo at this time, per his conversation with Dr Alfaro on Friday. Dr. Kingsley unfortunately did not come visit pt as he had said he would, ?maybe he will come today. James and family would like return to [facility] if possible with continued acute IP rehab to see how much he can improve/can he return home. Son is starting the process of looking for Assisted living vs moving pt into his home, bc patient's home is a bi level and entirely unforgiving to his mobility needs. They have a post op visit with his surgeon, Dr Slater, at [facility] on 09/21 - I advised them they would need to work with wherever he lands ([facility], SNF etc) to coordinate transport for that visit. They are not desiring any transition to comfort care or hospice for now but we discussed how pt is at a different junction now with the [facility] fasc/wound issues + resp issues. Dr Quijano was in there right as I arrived, and he went over the CT Chest with them - they are aware the CT chest shows improvement of upper/mid alcala but continued collapse on lower. Dr. Quijano advised them the chest tube will stay in for now to see how much more it can drain but it is unlikely to fully drain the right lung and so the lower field may not fully re expand. He told family we'd wait and see how things look over next 1-2 days. I believe if needed, pt can return to [facility] with chest tube but i don't know we are that close to a discharge yet. PT came to see him yesterday while daughter was there and advised them they'd come back today when a team of 2 PTs was available bc pt needs 2 person assist and one PT alone would not be safe for eval. Family ideally want him back to [facility], more rehab/follow up wound care/revisit chemo options with Dr Kingsley. We discussed he is not a candidate to resume prior Velcade and the Revlimid before that (he was on it x7yr) is no longer effective so I doubt it is an option Dr Kingsley will offer.) They still want to speak with Dr Kingsley, asked about dose reduced velcade vs another option. I told them those are great questions to ask Dr Kingsley CT Chest this morning revealed the followin. Moderate to gross right sided pleural effusion with collapse consolidation of right lower lobe is seen.- (reduce the amount of pleural collection/effusion as compared to prior study with reinflation of right upper and middle lobes is seen) 2. Mild free air is noted involving right pleural space at anterior aspect - suggestive of pneumothorax, could be post procedural.-new finding. 3. The drainage tube is seen in right side with tip is noted in pleural space.- new interval placement. 4. Mild left sided pleural effusion with passive subsegmental collapse of left lower lobe is seen.-stable. 5. Old fracture with callus formation is noted involving right 3-5 and right 11 ribs.-stable. Other Content of Meetin. Opportunity given for participants to speak and ask questions. 2. Participants were assured of attention to patient comfort. 3. Reassurance provided. 4. Support was provided for informed, good-costa decisions. 5. Emotions expressed by family were acknowledged and addressed. 6. Follow-up Outpatient: OP Pall [facility] clinic offered 7. Plan of Care: as above, await PT eval, return to [facility] if possible with overall goals being to return home and resume cancer directed therapies. He plans to try and keep [facility] appt if he is discharged but is aware that it will need to be rescheduled if he is still an inpatient here. I have updated nursing and primary team Thank you for allowing us to participate in the ongoing care of this patient. Please page with any additional concerns. Renae Denise DNP Director, Palliative Medicine
[2024-09-08 11:43] LABS: Hematocrit (blood only) 25.0 % (42.0-52.0); Hemoglobin 7.7 g/dl (14.0-18.0); Immature Granulocytes # (auto) 0.01 K/uL (0.01-0.20); Immature Granulocytes % (auto) 0.4 %; Mean Corpuscular Hemoglobin 32.5 pg (25.0-34.0); Mean Corpuscular Volume 105.5 fL (80.0-100.0); Platelet Count 150 K/uL (130-400); RDW Standard Deviation 65.5 fL (36.4-46.3); Red Blood Count 2.37 M/uL (4.70-6.10); White Blood Count 2.78 K/ul (4.8-10.8)
[2024-09-08 11:59] LABS: Anion Gap 2.0 (3-11); Blood Urea Nitrogen 15.0 mg/dl (6-23); Calcium 7.6 mg/dl (8.6-10.3); Carbon Dioxide 32.0 mmol/L (21-32); Chloride 104.0 mmol/L (98-107); Creatinine Clr Calc Pharmacy 90.1 ml/min; Glucose 108.0 mg/dl (70-99(Fasting)); Potassium 3.9 mmol/L (3.5-5.1); Sodium 138.0 mmol/L (136-145)
[2024-09-08 12:11] LABS: Anisocytosis Present; Polychromasia 1+
[2024-09-08] MEDS: MEROPENEM 500 MG in SYRINGE 0 ML IV SCH (12:52)
--- NOTE | 2024-09-08 12:54 | Pulmonology Progress Note ---
Date of Service September 08, 2024 Assessment & Plan (1) Large pleural effusion: (2) Rib fractures: (3) Acute dyspnea: (4) Acute hypoxemic respiratory failure: Plan Impression: 89-year-old male with history of multiple myeloma recently admitted with necrotizing fasciitis. Admitted now with massive pleural effusion. He has rib fractures noted on his CT scan. He is anticoagulated. Differential would include malignant effusion although appears less likely given the rapid increase. Hemothorax is more likely given the rib fractures and his acute anticoagulation. Drainage warranted. CT chest 09/08/2024 personally reviewed: Moderate right-sided pleural effusion with compressive atelectasis of the right lower lobe Cardiomegaly No significant mediastinal lymphadenopathy Recommendation: 1. Pleural effusion: 14 Libyan chest tube placed 09/05/2024. Pleural fluid exudative by lights criteria and bloody with clot noted in chest tube. Pleural fluid cytology with blood and blood products. Microbiologic analysis showing no growth to date. Chest x-ray this am shows marked improvement of right pleural effusion/hemothorax with moderate residual effusion remaining compared to pre chest tube imaging. CT chest this am shows significant right lower lobe hemothorax. Chest tube appropriately positioned. Discussed with family and patient that patient would be a poor surgical candidate and large bore chest would be painful. Family and patient in agreement to continue current treatment plan. 2. Hypoxemia: Improved with drainage of the pleural effusion. 97% on room air. 3. Rib fractures: Continue supportive management. Pain control. Given the possibility of continued hemothorax, would favor discontinuation of anticoagulation at this point in time and follow clinically. 4. Patient's son is requesting to meet with palliative care. Plan to meet with palliative care today 09/08/2024. Will follow the patient based on results of the pleural fluid. Thanks for the opportunity participating the care of this patient. Feel free to reach out to us with questions or concerns Admission and Anticipated Discharge Date Admission Date: September 04, 2024 Supervising Physician Co-Signing Physician Notes I saw and evaluated the patient with VIET Darnell, and agree with findings and plan as documented in the note. Patient seen and examined at bedside. No acute distress, no adverse events overnight He was saturating well on 1 L oxygen. I personally do not think he needs oxygen Patient son and daughter were in the room at the time of examination He denied any discomfort No chest pain. Shortness of breath has improved. No nausea or vomiting, fair appetite Constitutional: No acute distress HEENT: EOMI, PERRLA Respiratory system: Decreased air entry on the right side, no wheeze, no rhonchi, positive crackles bilateral lower lobes CVS: S1-S2 positive, no murmurs or gallops Abdomen: Soft, nontender, nondistended, positive bowel sounds x4 Extremities: +2 pulses bilaterally radialis/ dorsalis pedis, no cyanosis, +1 pitting edema bilateral lower extremity Neuro: Awake alert oriented x3 Psych: Normal mood and affect G/U: Positive [place] Plan: CT chest 09/08/2024 personally reviewed: Moderate right-sided pleural effusion with compressive atelectasis of the right lower lobe Cardiomegaly No significant mediastinal lymphadenopathy I do not think we will be able to drain all the hemothorax which the patient had Given the chest tube is still draining up to 400 mL a day. Will continue with the same. I did discuss the prognosis with the patient as well as patient's family who are in the room. Definitive treatment for hemothorax would be VATS to clean everything out. Given that hemoglobin is stable and the fluid is getting more serous putting a bigger caliber chest tube might not be beneficial and cause more pain. Continue with chest tube suction to -40 Case was discussed with RN at bedside Please note the above document was generated using voice recognition software. It may contain grammatical, syntax or spelling errors.Any formal questions or concerns about the content, text or information contained within the body of this dictation should be directly addressed to the provider for clarification. Subjective "I'm doing he same as I have been. Good." Patient chest tube flushed one time in last 24hrs with [address] chest this am showed significant right lower lobe persistent hemothorax. Patient is asymptomatic other than minor discomfort at chest tube insertion site. SpO2 97% on room air. Discussed with patient and family that chest tube will remain in place to try and further drain the hemothroax but unfortunately he would be a poor surgical candidate and a large bore chest tube may cause pain. Patient and family understanding and appropriate questions asked and answered. Plan for palliative car meeting today. Review of Systems 2 Review of Systems: All systems reviewed & are unremarkable except as noted in HPI & below Physical Exam 2 Constitutional: + frail appearing; no acute distress Neck: trachea midline, no thyromegaly Respiratory: + labored breathing and + tachypneic Auscultation: + diminished lung sounds Decreased breath sounds with dullness to percussion right lung alcala Cardiovascular: RRR, no murmur, no edema Gastrointestinal (Abdomen): normal bowel sounds, soft, nontender, no hepatosplenomegaly Musculoskeletal: Extremities: extremities normal to inspection Skin: no rashes, warm and dry Neurologic: Nonfocal exam Lymphatic: no cervical lymphadenopathy Results & Data Results & Data Vital Signs (Past 12 Hours) Vital Signs Temp Pulse Pulse Pulse Resp BP BP 09/08/24 10:50 36.5 C 75 17 104/61 09/08/24 09:08 76 09/08/24 08:14 09/08/24 07:04 36.5 C 75 17 100/56 L 09/08/24 03:21 36.7 C 74 16 98/57 L Pulse Ox O2 Del Method O2 Flow Rate 09/08/24 10:50 98 Nasal Cannula 1 09/08/24 09:08 09/08/24 08:14 Nasal Cannula 1 09/08/24 07:04 96 Nasal Cannula 1 09/08/24 03:21 96 Nasal Cannula 1 Laboratory Results 09/08/24 11:18 09/08/24 11:18 Abnormal Lab Results 09/08/24 11:18 WBC 2.78 L RBC 2.37 L Hgb 7.7 L Hct 25.0 L MCV 105.5 H MCH 32.5 MCHC 30.8 L RDW Std Deviation 65.5 H RDW Coeff of Ezequiel 17.3 H Plt Count 150 MPV 10.8 Immature Gran % (Auto) 0.4 Neut % (Auto) 54.6 Lymph % (Auto) 18.3 Rowan % (Auto) 21.6 Eos % (Auto) 4.7 Baso % (Auto) 0.4 Neut # (Auto) 1.52 Lymph # (Auto) 0.51 L Rowan # (Auto) 0.60 H Eos # (Auto) 0.13 Baso # (Auto) 0.01 Immature Gran # (Auto) 0.01 Polychromasia 1+ Anisocytosis Present ESR 37 H Sodium 138 Potassium 3.9 Chloride 104 Carbon Dioxide 32 Anion Gap 2 L BUN 15 Creatinine 0.61 Est Cr Clr Drug Dosing 90.1 eGFR 91.81 BUN/Creatinine Ratio 24.6 H Glucose 108 H Lactate 2.1 H* Calcium 7.6 L C-Reactive Protein 4.59 H Procalcitonin 0.[address] 09/08/24 06:00 EXAM: CT chest diagnostic wo con CLINICAL HISTORY: Eval right hemothroax s/p pigatil TECHNIQUE: Contiguous axial images were obtained from the neck base through the upper abdomen without contrast. In addition, sagittal and coronal reconstructions were performed to potentially increase the sensitivity for the detection of disease. CT scan was performed according to ALARA (as low as reasonable achievable). COMPARISON: None. FINDINGS: Moderate to gross right sided pleural effusion with collapse consolidation of right lower lobe is seen. Mild free air is noted involving right pleural space at anterior aspect - suggestive of pneumothorax . The drainage tube is seen in right side with tip is noted in pleural space. Mild left sided pleural effusion with passive subsegmental collapse of left lower lobe is seen. Old fracture with callus formation is noted involving right 3-5 and right 11 ribs. Rest of the lungs are clear.The central airways are patent. Evaluation of the mediastinum and amber is limited due to the lack of intravenous contrast. No axillary or mediastinal adenopathy is identified. The thyroid is unremarkable. The heart, aorta, and pulmonary arteries are of normal size and configuration. There are coronary artery and aortic atherosclerotic calcifications. No pericardial effusion is identified. Imaged portions of the upper abdomen are unremarkable. No aggressive appearing osseous lesions are identified. IMPRESSION: 1. Moderate to gross right sided pleural effusion with collapse consolidation of right lower lobe is seen.-( reduce the amount of pleural collection/effusion as compared to prior study with reinflation of right upper and middle lobes is seen) 2. Mild free air is noted involving right pleural space at anterior aspect - suggestive of pneumothorax, could be post procedural.-new finding. 3. The drainage tube is seen in right side with tip is noted in pleural space.- new interval placement. 4. Mild left sided pleural effusion with passive subsegmental collapse of left lower lobe is seen.-stable. 5. Old fracture with callus formation is noted involving right 3-5 and right 11 ribs.-stable. Electronically signed by Tyler Mendoza 09-08-2024 07:14 AM Chest X-Ray 09/08/24 07:00 EXAM: XR chest 1V portable CLINICAL HISTORY: hemothorax TECHNIQUE: An X-ray image of the chest is obtained in AP projection. COMPARISON: 09/07/2024 CR. FINDINGS: Pulmonary Parenchyma: Chest tube on the right lower chest seen in situ, in the right 7th intercostal space. Interval stable, homogeneous opacification of right lower zone obscuring the right costophrenic recess. Interval stable, mild pleural reaction at the left costophrenic recess causing the blunting of CP angle. Heart and Mediastinum: Cardiomegaly with bilateral hilar congestion. No mediastinal widening or masses. No hilar or mediastinal lymphadenopathy. Bony Thorax: Bony thorax appears intact without fractures or deformities. Soft Tissues: Soft tissues overlying the chest wall are unremarkable. IMPRESSION: 1. Chest tube seen in situ on the right lower chest, in the right 7th intercostal space. 2. Interval stable, homogeneous opacification of the right lower zone obscuring the right costophrenic recess. Mild pleural effusion. 3. Small pleural reaction at the left costophrenic recess causing the blunting of the CP angle. Minimal pleural effusion. 4. Comparing the previous x-ray dated 09/07/2024, the findings remain stable. Electronically signed by Bc Garcia 09-08-2024 07:47 AM PG Care Time/CCT Total # of Minutes Spent Total Time Spent with Patient: Total time spent is greater than 50% in coordination of care (as documented) at patient's floor/unit and/or counseling patient: Coding Level of Care Code 50405 SUB INP/OBS CARE 2/35MIN Diagnoses Large pleural effusion J90 Rib fractures S22.49XA Acute dyspnea R06.00 Acute hypoxemic respiratory failure J96.01
[2024-09-08] MEDS: SODIUM CHLORIDE 0.9% 1,000 ML IV ONE (19:45)
--- NOTE | 2024-09-08 21:53 | Hospitalist Progress Note ---
Date of Service September 08, 2024 Assessment & Plan (1) Pleural effusion: (2) Acute respiratory failure: (3) Multiple myeloma: (4) Atrial fibrillation: Plan 89 years old male with PMH of DNR/DNI @ [facility] since 08/24/2024, overweight with BMI 26.7 (height 182.9 cm; weight 89.4 kg), chronic macrocytic, normochromic anemia with progressive decline in Hb range from 12.6 g/dL, MCV 103.8, MCHC 34.7 (02/10/2018, 8:13am) to 8.6 g/dL, MCV 101.6, MCHC 34.8 (08/24/2024, 5:42am), multiple myeloma (diagnosed on 11/20/2022, 9:46am bone marrow biopsy, [facility] Heme-Onc Dr. Florencio Kingsley), subsequently treated with Revlimid and Velcade (starting in early July 2024), by [facility] Heme-On[facility] Dr. Florencio Kingsley, DVT on xarelto, ambulatory dysfunction resulting in mechanical fall at home alone, and acute right displaced intert rochanteric femur fracture with subtrochanteric extension, for which patient underwent closed reduction and insertion of right antegrade [place] gamma 4, 14l106 mm intramedullary femoral nail (04/17/2024, , Orthopedic Surgeon Dr. Phong Slater), followed by complaints of fevers, chills, poor oral intake with N/V/D at home, culminating in: (A) severe septic shock due to acute necrotizing fasciitis of right proximal/lateral thigh with Clostridium septicum+ right thigh wound culture (08/17/2024), s/p I & D (08/17/2024, 9:30pm, [facility], Orthopedic Surgeon Dr. Jaden Menendez), and coincident Clostrdium septicum- associated bacteremia (as noted in 1 of 2 anaerobic bottles only from 08/17/2024, 3:57pm blood cultures x 2), treated with clindamycin 900mg IV q8 x 17 doses (08/17/2024, 8pm 08/23, 4am) and penicillin 4 million units IV q4 x 25 doses (08/20/2024, 11:30am to 08/24/2024, 2:00pm) and pressor support with norepinephrine @ 8 micrograms/minute (08/17/2024 - 08/21/2024) and vasopressin 0.04 units/min (08/17/2024 - 08/19/2024) while in [facility] (08/17/2024 - 08/24/2024), (B) acute hypoxic respiratory failure requiring intubation (08/17/2024), then extubation (08/18/2024) at [facility]. (C) acute rhabdomyolysis with CK 1,278 U/L (08/17/2024, 3:12pm) and repeat CK 327 U/L (08/18/2024, 4:40am) with normal renal function (cf., creatinine 1.06 mg/dL (08/17/2024, 3:12pm) and repeat creatinine 0.99 mg/dL (08/17/2024, 11:40pm). (D) new onset, paroxysmal AFIB leading to acute PE/DVT, for which patient was restarted on his home-scheduled Xarelto. Patient was subsequently discharged to [facility] on 08/24/2024 with: 1. augmentin 875mg/125mg PO tid from 08/24/2024 - 08/31/2024, as per [facility] Infectious Disease Dr. [address]. 2. wound vac placed over patient's right proximal/lateral thigh wound, as per [facility] Infectious Disease Dr. [address]. 3. midodrine 10mg PO tid to treat persistent hypotension after titrating off pressor support with norepinephrine @ 8 micrograms/minute (08/17/2024 - 08/21/2024) and vasopressin 0.04 units/min (08/17/2024 - 08/19/2024) while in [facility] (08/17/2024 - 08/24/2024). Patient was also advised by his [facility] Heme-On[facility] Dr. Florencio Kingsley to hold off Revlimid and Velcade until his follow up appointment with Dr. Kingsley on 09/02/2024 @ [facility]. Patient was subsequently sent back to [facility] ER on 09/04/2024 with complaints of progressively worsening SOB/LOTT for the previous 2 days. Patient was subsequently admitted to the inpatient hospitalist service @ [facility] on 09/04/2024 with the following diagnoses: 1. Acute hypoxic respiratory failure with O2 saturation 91% on room air (09/04/2024, 4:10pm), repeat O2 saturation 96% on high flow oxygen at 50 liters/minute (09/04/2024, 5:29pm) due to acute large right pleural effusion. 2. Acute fractures of right ribs #9 and #10 (lateral rib). 3. Chronic fractures of right ribs #10 (posterior rib) and #11. The following medical issues are being addressed on 09/08/2024: 1. Acute hypoxic respiratory failure with O2 saturation 91% on room air (09/04/2024, 4:10pm), repeat O2 saturation 96% on high flow oxygen at 50 liters/minute (09/04/2024, 5:29pm) due to acute large right pleural effusion. - Patient underwent therapeutic placement of right posterior 14 [place] pigtail catheter (09/05/2024, 7:00am, [facility] [employer] Dr. Christofer Chino) with 400 mL of blood fluid drained. Subsequently, acute hypoxic respiratory failure has RESOLVED with patient titrated off high flow oxygen at 50 liters/minute (09/04/2024, 5:29pm), followed by high flow oxygen at 40 liters/minute (09/05/2024, 7:47am), followed by 2 liters/minute O2 via nasal cannula (09/05/2024, 11:20am), followed by 1 liter/minute O2 via nasal cannula (09/05/2024, 12:00pm; 09/07/2024, 3:48am), followed by room air (09/08/2024, 8:21pm). 2. Acute fractures of right ribs #9 and #10 (lateral rib). - Patient reports 0/10 pain on 09/08/2024 while continuing to receive tylenol 650mg PO q6 prn pain 1-10, headache, temp > 100.4 degrees Fahrenheit. 3. Chronic fractures of right ribs #10 (posterior rib) and #11. - Patient reports 0/10 pain on 09/08/2024 while continuing to receive tylenol 650mg PO q6 prn pain 1-10, headache, temp > 100.4 degrees Fahrenheit. 4. Persistent hypotension after titrating off pressor support with norepinephrine @ 8 micrograms/minute (08/17/2024 - 08/21/2024) and vasopressin 0.04 units/min (08/17/2024 - 08/19/2024) while in [facility] (08/17/2024 - 08/24/2024). cf., BP 90/61 (09/07/2024, 7:52am) on midodrine 100mg PO tid (8am, 12pm, 5pm) to maintain MAP > 65 mm Hg. D/C'd midodrine 100mg PO tid (8am, 12pm, 5pm) on 09/07/2024. Persistent hypotension has subsequently RESOLVED with BP 114/67 (09/08/2024, 8:21pm). Post-hospital admission diagnoses include: 5. Acute blood loss anemia with progressive decline in Hb levels since admission date 09/04/2024 to 09/07/2024, now with Hb level rising on 09/08/2024: cf., Hb 10.1 g/dL, MCV 106.0, MCHC 31.8 (09/04/2024, 4:36pm). cf., Hb 9.1 g/dL, MCV 104.5, MCHC 32.6 (09/05/2024, 7:15am). cf., Hb 7.4 g/dL, MCV 104.5, MCHC 31.8 (09/06/2024, 6:18am). cf., Hb 8.9 g/dL, no MCV, no MCHC (09/06/2024, 2:09pm). cf., Hb 7.1 g/dL, MCV 104.6, MCHC 31.3 (09/07/2024, 7:02am). cf., Hb 7.7 g/dL, MCV 105.5, MCHC 30.8 (09/08/2024, 11:18am). Patient reports no mucosal bleeding and remains hemodynamically stable. Etiology of acute blood loss anemia remains unclear, but is probably due to incipient sepsis with publication of Pseudomonas aeruginosa (as reported in 09/06/2024 right hip wound culture). Check Hb in the 09/09/2024 am, and reserve packed RBC transfusion for Hb level < 7 g/dL. 6. Pancytopenia with progressive declines in all 3 cell lines: WBC, RBC, and platelets with rafia reached on 09/07/2024, now with WBC, RBC, and platelets rising on 09/08/2024: cf., WBC 5.19, Hb 10.1 g/dL, MCV 106.0, MCHC 31.8, platelet 169 (09/04/2024, 4:36pm). cf., WBC 3.60, Hb 9.1 g/dL, MCV 104.5, MCHC 32.6, platelet 167 (09/05/2024, 7:15am). cf., WBC 2.84, Hb 7.4 g/dL, MCV 104.5, MCHC 31.8, platelet 133 (09/06/2024, 6:18am). cf., no WBC, Hb 8.9 g/dL, no MCV, no MCHC, no platelet (09/06/2024, 2:09pm). cf., WBC 2.31, Hb 7.1 g/dL, MCV 104.6, MCHC 31.3, platelet 142 (09/07/2024, 7:02am)(rafia). cf., WBC 2.78, Hb 7.7 g/dL, MCV 105.5, MCHC 30.8, platelet 150 (09/08/2024, 11:18am). Patient reports no fevers, chills, or diaphoresis on 09/07/2024. Etiology of pancytopenia remains unclear, but is probably due to incipient sepsis with publication of Pseudomonas aeruginosa (as reported in 09/06/2024 right hip wound culture). 7. Chronic/persistent AFIB. cf., EKG (09/04/2024, 4:16pm): AFIB @ 78, QTC 408, < 0.[address] depression in V4, V5, no acute ST elevations; q in V2 (by my review). Patient remains asymptomatic with no complaints of chest pain or palpitations on 09/07/2024 - 09/08/2024. Continue to hold OFF home-scheduled metoprolol 12.5mg PO qam given potential for this medication to cause hypotension, and continue to hold off patient's home-scheduled xarelto 15mg PO daily given potential for this medication to cause bleeding. 8. Incipient sepsis with publication of Pseudomonas aeruginosa (as reported in 09/06/2024 right hip wound culture). Patient remains afebrile with no complaints of right hip wound / thigh pain on 09/08/2024. Start meropenem 500mg IV q6 (day #1/10 on 09/08/2024, 12:52pm, 5:53pm). Check vitals, right hip wound / right thigh, WBC w/diff, lactic acid, and procalcitonin in the 09/09/2024 am. 9. Acute lactic acid elevation. cf., Lactic acid #1 2.1 mmol/L (09/08/2024, 11:18am). cf., Lactic acid #2 2.2 mmol/L (09/08/2024, 2:51pm). cf., Lactic acid #3 2.3 mmol/L (09/08/2024, 6:34pm). cf., Lactic acid #4 (09/08/2024, 10:34pm). cf., Lactic acid #5 (09/09/2024, 6:00am). Etiology of acute lactic acid elevation remains unclear, but is probably due to acute dehydration from decreased oral intake of water. Hence, I have opted to rehydrate patient with 1 liter of 0.9% NS @ 89 mL/hr (09/08/2024, 7:04pm), based on a delivery rate of 1 mL of 0.9% NS per kg of body weight per hour, and a body weight of 89.4 kg. I will check repeat lactic acid level #4 (09/08/2024, 10:34pm), and lactic acid #5 (09/09/2024, 6:00am). 10. Disposition. Code status remains unchanged at DNR/DNI @ [facility] since 08/24/2024. Patient, patient's son, Mr. Ismael Patterson ( ), and patient's daughter, Ms. Divine Evans ( )) underwent Palliative Care Service evaluation (09/08/2024, 9:05am) with Ms. Jyothi Denise. Together, they affirmed that patient is too sick to continue with Revlimid therapy for his multiple myeloma. Patient also had adverse effects while receiving Velcade, which precludes future utilization by patient. In addition, they affirmed that patient would not be discharged to hospice/comfort measures only, and instead, they affirmed that patient would begin a 10 day course of meropenem 500mg IV q8 (09/08/2024, 5:53pm) as Case Management Service enters a referral for patient to go to [facility] as patient is too weak to participate with physical therapy 3 hours per day, as required of patients at [facility]. Hence, I anticipate that this patient will remain in [facility] for the next 2-3 days, after which, patient will be discharged to [facility]. Admission and Anticipated Discharge Date Admission Date: September 04, 2024 Subjective "I'm a fighter. I am gonna get better." Review of Systems Constitutional: Positive for generalized weakness. Negative for antecedent/coincident fevers, chills, diaphoresis, cough, wheeze, sore throat, hemoptysis, chest pains, palpitations, pleurisy, nausea, vomiting, diarrhea, abdominal pain, pelvic pain, hematemesis, hematochezia, melena, hematuria, dysuria, frequency, urgency, headaches, dizziness, lightheadedness, visual changes, hearing changes, falls, syncope, trauma, travel history, sick co ntacts, or food/drug ingestions novel or new. All other review of systems are reported as negative by the patient on 09/08/2024. Physical Exam 2 Constitutional: General: Run-down, worn-out, asthenic with mouth hanging wide open. Comfortable, cooperative, coherent. Wide awake and alert. Not confused, lethargic, or obtunded. Patient speaks in complete, fluent, and articulate sentences without pause, interruption, cough, or wheeze. HEENT: Normocephalic, atraumatic. Pupils equally round and reactive to light. No nystagmus, gaze paresis, anisocoria, miosis, mydriasis, hyphema, s cleral injection, conjunctivitis, or pterygium. No otorrhea. No pharyngeal erythema, edema, or discharge. Neck: Supple, no stridor, bruit, goiter, or hepato-jugular reflux. Jugular venous pressure is estimated to be 3 cm above the sternal angle of Horacio, which in turn, is 5 cm above the level of the right atrium; with jugular venous pressure estimated to be 8 cm, then, there is no jugular venous distention on 09/08/2024. Lymphatics: No cervical (anterior/posterior), supraclavicular, infraclavicular, axillary, epitrochlear, or inguinal adenopathy. Chest: Symmetric rise and fall with respirations. Non-tender to palpation. Right-sided chest tube in situ (inserted on 09/05/2024, 7:00am, [facility] [employer] Dr. Christofer Chino) with expression of 400 mL of grossly bloody effluent removed. Lungs: Clear to auscultation and percussion. No audible expiratory wheeze, egophony, pectoriloquy, increase in tactile fremitus, or flatness/dullness to percussion at the bases. Heart: Regular rate. Irregularly irregular rhythm. S1 and S2 noted. No S3 or S4 summation gallop. No tripartite friction rub. Grade II/ early systolic murmur @ LLSB without radiation to the carotids, axilla, or back, and which remains invariant in regards to the respiratory cycle. Abdomen: Soft, non-tender, non-distended. No rebound, guarding, Osborne's sign, or organomegaly. Bowel sounds auscultated in all 4 quadrants. Extremities: No clubbing, cyanosis, or edema in upper extremities or lower extremities bilaterally. 2+ pedal pulses bilaterally. Skin: No decubitus ulcer or enanthem. Genito-urinary: No urethral discharge. + vargas catheter with 1100 mL of urine expressed from 09/07/2024, 9:31pm to 09/08/2024, 9:31pm. Neurology: Alert and oriented in regards to person, place, time, and situation. DTR+. 4/5 motor strength in all 4 extremities, both proximally and distally. No myoclonus, tremors, or tics. Psychiatry: No homicidal ideation. No suicidal ideation. No flat affect; smiles appropriately. Results & Data Results & Data Vital Signs (Past 12 Hours) Vital Signs Temp Pulse Pulse Resp BP BP Pulse Ox 09/08/24 20:21 09/08/24 19:13 37.1 C 96 H 18 114/67 93 09/08/24 15:49 36.5 C 96 H 18 99/58 L 96 09/08/24 13:59 88 09/08/24 10:50 36.5 C 75 17 104/61 98 O2 Del Method O2 Flow Rate 09/08/24 20:21 Room Air 09/08/24 19:13 Room Air 07/02/25 15:49 Room Air 09/08/24 13:59 09/08/24 10:50 Nasal Cannula 1 Laboratory Results WBC 5.19, N75 L9 M15, Hb 10.1, MCV 106.0, MCHC 31.8, platelet 169 (09/04/2024, 4:36pm). WBC 3.60, no differential, Hb 9.1, MCV 104.5, MCHC 32.6, platelet 167 (09/05/2024, 7:15am). WBC 2.84, no differential, Hb 7.4, MCV 104.5, MCHC 31.8, platelet 133 (09/06/2024, 6:18am). Hb 8.9 (09/06/2024, 2:09pm). WBC 2.31, no differential, Hb 7.1, MCV 104.6, MCHC 31.3, platelet 142 (09/07/2024, 7:02am). WBC 2.78, N55 L18 M22 E5, Hb 7.7, MCV 105.5, MCHC 30.8, platelet 150 (09/08/2024, 11:18am). Right thigh wound culture (09/06/2024): Pseudomonas aeruginosa Right thigh wound culture (08/17/2024): Clostridium septicum ESR 31 mm/hr (09/07/2024, 12:11pm). ESR 37 mm/hr (09/08/2024, 11:18am). CRP 6.04 mg/dL (09/07/2024, 12:11pm). CRP 4.59 mg/dL (09/08/2024, 11:18am). Na 139, K 3.6, BUN 25, creatinine 0.8, glucose 190, Ca 8.3 (09/04/2024, 4:36pm). Na 141, K 3.4, BUN 25, creatinine 0.72, glucose 141, Ca 8.1 (09/05/2024, 7:15am). Na 141, K 3.5, BUN 21, creatinine 0.57, glucose 116, Ca 7.6 (09/06/2024, 2:09pm). Na 139, K 3.9, BUN 19, creatinine 0.71, glucose 102, Ca 7.6 (09/07/2024, 7:02am). Na 138, K 3.9, BUN 15, creatinine 0.61, glucose 108, Ca 7.6 (09/08/2024, 11:18am). Lactic acid #1 2.1 mmol/L (09/08/2024, 11:18am). Lactic acid #2 2.2 mmol/L (09/08/2024, 2:51pm). Lactic acid #3 2.3 mmol/L (09/08/2024, 6:34pm). Lactic acid #4 (09/08/2024, 10:34pm). Diagnostic Findings Portable CXR (09/04/2024, 4:20pm): 1. Complete opacification of the right hemithorax, consistent with enlarged pl eural effusion from what was seen on prior 08/20/2024 portable CXR. 2. Smaller left pleural effusion is also appreciated. 3. Inferolateral right rib fractures. 4. No cardiomegaly, pulmonary vascular congestion, pneumothorax, or infiltrate. (by my review). CT chest without IV contrast (09/04/2024, 5:33pm): 1. Large right pleural effusion occupying the hemithorax, and compressing the right lung. 2. Small left pleural effusion. 3. Right ribs 9 and 10, contain displaced rib fractures, which may be acute. 4. There is also healing callus associated with a posterior right rib 11, and another portion of the posterior right rib 10, suggesting healing fractures. Portable CXR (, 6:54am). 1. Complete white out of right lung. (Minimal decrease in haziness compared to previous radiograph)-interval placement of tube. 2. Minimal blunting of left costophrenic angle with hazy left lower zone opacity. (Stable) 3. No cardiomegaly, pulmonary vascular congestion, pneumothorax, or infiltrate. (by my review). Portable CXR (09/06/2024, 7:00am): 1. Chest tube seen in situ. 2. Interval regressed, homogeneous opacification of the right lower zone obscuring the right costophrenic recess. Mild pleural effusion. 3. Small/minimal pleural reaction at the left costophrenic recess. Minimal left pleural effusion. 4. Cardiomegaly with bilateral hilar congestion. 5. Comparing the previous x-ray dated 09/05/2024, there is significant regressed right pleural effusion. 6. No pneumothorax. (by my review). Portable CXR (09/07/2024, 7:00am): 1. Chest tube seen in situ on right side(unchanged). 2. Homogeneous ground glassing is noted involving right lung as compared to its counter part-new finding. 3. Interval stable homogeneous opacification of the right lower zone obscuring the right costophrenic recess. Mild right pleural effusion. 4. Small/minimal pleural reaction at the left costophrenic recess. Minimal left pleural effusion.-stable. 5. Cardiomegaly with bilateral hilar congestion. 6. No pneumothorax. (by my review). PG Care Time/CCT Total # of Minutes Spent Total Time Spent with Patient: Total time spent is greater than 50% in coordination of care (as documented) at patient's floor/unit and/or counseling patient: Coding Level of Care Code 42236 SUB INP/OBS CARE 3/50MIN Diagnoses Pleural effusion J90 Acute respiratory failure J96.00 Multiple myeloma C90.00 Atrial fibrillation I48.91
[2024-09-09 07:49] LABS: Hematocrit (blood only) 24.9 % (42.0-52.0); Hemoglobin 8.0 g/dl (14.0-18.0); Mean Corpuscular Hemoglobin 32.8 pg (25.0-34.0); Mean Corpuscular Volume 102.0 fL (80.0-100.0); Platelet Count 149 K/uL (130-400); RDW Standard Deviation 64.7 fL (36.4-46.3); Red Blood Count 2.44 M/uL (4.70-6.10); White Blood Count 3.08 K/ul (4.8-10.8)
[2024-09-09 07:54] LABS: Anion Gap 3.0 (3-11); Blood Urea Nitrogen 13.0 mg/dl (6-23); Calcium 7.4 mg/dl (8.6-10.3); Carbon Dioxide 30.0 mmol/L (21-32); Chloride 104.0 mmol/L (98-107); Creatinine Clr Calc Pharmacy 103.7 ml/min; Glucose 108.0 mg/dl (70-99(Fasting)); Potassium 3.8 mmol/L (3.5-5.1); Sodium 137.0 mmol/L (136-145)
[2024-09-09 08:16] LABS: Immature Granulocytes # (auto) 0.00 K/uL (0.01-0.20); Immature Granulocytes % (auto) 0.0 %; Ovalocytes 1+; Polychromasia 1+; Tear Drop Cells 1+
--- NOTE | 2024-09-09 08:46 | XRay Report ---
XR chest 1V portable CLINICAL HISTORY: eval right pleural effusion COMPARISON STUDY: 09/08/2024 FINDINGS: Stable mild cardiomegaly without pulmonary vascular congestion. Stable right pleural cathet er. Stable small bilateral pleural effusions and adjacent lower lung consolidation, right greater ken n left. No pneumothorax seen. IMPRESSION: Stable exam. ACT 112: Negative or not required by law. Electronically signed by: Jae Ordaz M.D. 09/09/2024 8:45 AM
--- NOTE | 2024-09-09 11:11 | Pulmonology Progress Note ---
Date of Service September 09, 2024 Assessment & Plan (1) Large pleural effusion: (2) Rib fractures: (3) Acute dyspnea: (4) Acute hypoxemic respiratory failure: Plan Impression: 89-year-old male with history of multiple myeloma recently admitted with necrotizing fasciitis. Admitted now with massive pleural effusion. He has rib fractures noted on his CT scan. He is anticoagulated. Differential would include malignant effusion although appears less likely given the rapid increase. Hemothorax is more likely given the rib fractures and his acute anticoagulation. Drainage warranted. CT chest 09/08/2024 personally reviewed: Moderate right-sided pleural effusion with compressive atelectasis of the right lower lobe Cardiomegaly No significant mediastinal lymphadenopathy Recommendation: 1. Pleural effusion: 14 Cuban chest tube placed 09/05/2024. Pleural fluid exudative by lights criteria and bloody with clot noted in chest tube. Pleural fluid cytology with blood and blood products. Microbiologic analysis showing no growth to date. Chest x-ray this am shows marked improvement of right pleural effusion/hemothorax with moderate residual effusion remaining compared to pre chest tube imaging. CT chest this am shows significant right lower lobe hemothorax. Chest tube with no drainage in last 24hrs. Chest tube discontinued this am. Discussed with family and patient that patient would be a poor surgical candidate and large bore chest would be painful. Family and patient in agreement to continue current treatment plan. 2. Hypoxemia: Improved with drainage of the pleural effusion. 93% on room air. 3. Rib fractures: Continue supportive management. Pain control. Given the possibility of continued hemothorax, would favor discontinuation of anticoagulation at this point in time and follow clinically. 4. Palliative care meeting held 09/08/2024 with plan to move to [facility] when medically appropriate to get to highest level of functioning and return home v. assisted living or living with family. Patient will continue medical therapy for acute issues and follow up with Dr. Tavera for his multiple myeloma. He will remain DNR/DNI. Will follow the patient based on results of the pleural fluid. Thanks for the opportunity participating the care of this patient. Feel free to reach out to us with questions or concerns Admission and Anticipated Discharge Date Admission Date: September 04, 2024 Supervising Physician Co-Signing Physician Notes I saw and evaluated the patient with VIET Darnell, and agree with findings and plan as documented in the note. Patient seen and examined at bedside. No acute distress, no adverse events overnight He was sitting on the chair. Saturating 93-95% on room air. Denied any chest pain, no chest discomfort at the site of the chest tube Her appetite, no nausea or vomiting Was excited to go to rehab Constitutional: No acute distress HEENT: EOMI, PERRLA Respiratory system: Decreased air entry on the right side, no wheeze, no rhonchi, positive crackles bilateral lower lobes CVS: S1-S2 positive, no murmurs or gallops Abdomen: Soft, nontender, nondistended, positive bowel sounds x4 Extremities: +2 pulses bilaterally radialis/ dorsalis pedis, no cyanosis, +1 pitting edema bilateral lower extremity Neuro: Awake alert oriented x3 Psych: Normal mood and affect G/U: Positive [place] Plan: Chest x-ray from today personally reviewed, moderate basilar pleural effusion with small normal at the right base. Chest tube in place The chest tube was not drained anything in the last 24 hours. Plan to remove the chest tube today I did discuss the prognosis with the patient as well as patient's family who are in the room on 09/08/2024 Definitive treatment for hemothorax would be VATS to clean everything out. Given that hemoglobin is stable and the fluid is getting more serous putting a bigger caliber chest tube might not be beneficial and cause more pain. Case was discussed with RN at bedside and primary team Please note the above document was generated using voice recognition software. It may contain grammatical, syntax or spelling errors.Any formal questions or concerns about the content, text or information contained within the body of this dictation should be directly addressed to the provider for clarification. Subjective "I feel good." "I am hoping to go to rehab soon." Chest tube did not put out any drainage in last 24hrs. CXR stable right effusion/hemothorax. Chest tube discontinued this am. Patient asymptomatic with SpO2 93% on room air. Patient stable to go to [facility] from pulmonary perspective. Review of Systems 2 Review of Systems: All systems reviewed & are unremarkable except as noted in HPI & below Physical Exam 2 Constitutional: + frail appearing; no acute distress Neck: trachea midline, no thyromegaly Respiratory: + labored breathing and + tachypneic Auscultation: + diminished lung sounds Decreased breath sounds with dullness to percussion right lung [place] Cardiovascular: RRR, no murmur, no edema Gastrointestinal (Abdomen): normal bowel sounds, soft, nontender, no hepatosplenomegaly Musculoskeletal: Extremities: extremities normal to inspection Skin: no rashes, warm and dry Neurologic: Nonfocal exam Lymphatic: no cervical lymphadenopathy Results & Data Results & Data Vital Signs (Past 12 Hours) Vital Signs Temp Pulse Pulse Resp BP Pulse Ox O2 Del Method 09/09/24 10:53 36.9 C 84 17 94/55 L 100 Room Air 09/09/24 09:35 Room Air 09/09/24 09:33 84 09/09/24 02:56 37.1 C 85 18 103/53 L 91 Room Air 09/08/24 23:33 89 Laboratory Results 09/09/24 07:09 09/09/24 07:09 Abnormal Lab Results 09/08/24 09/08/24 09/08/24 11:18 14:51 18:34 WBC 2.78 L RBC 2.37 L Hgb 7.7 L Hct 25.0 L MCV 105.5 H MCH 32.5 MCHC 30.8 L RDW Std Deviation 65.5 H RDW Coeff of Ezequiel 17.3 H Plt Count 150 MPV 10.8 Immature Gran % (Auto) 0.4 Neut % (Auto) 54.6 Lymph % (Auto) 18.3 Forrest % (Auto) 21.6 Eos % (Auto) 4.7 Baso % (Auto) 0.4 Neut # (Auto) 1.52 Lymph # (Auto) 0.51 L Forrest # (Auto) 0.60 H Eos # (Auto) 0.13 Baso # (Auto) 0.01 Immature Gran # (Auto) 0.01 Polychromasia 1+ Anisocytosis Present Tear Drop Cells Ovalocytes ESR 37 H Sodium 138 Potassium 3.9 Chloride 104 Carbon Dioxide 32 Anion Gap 2 L BUN 15 Creatinine 0.61 Est Cr Clr Drug Dosing 90.1 eGFR 91.81 BUN/Creatinine Ratio 24.6 H Glucose 108 H Lactate 2.1 H* 2.2 H* 2.3 H* Calcium 7.6 L C-Reactive Protein 4.59 H Albumin Procalcitonin 0.13 09/09/24 09/09/24 07:09 09:23 WBC 3.08 L RBC 2.44 L Hgb 8.0 L Hct 24.9 L MCV 102.0 H MCH 32.8 MCHC 32.1 RDW Std Deviation 64.7 H RDW Coeff of Ezequiel 17.2 H Plt Count 149 MPV 10.8 Immature Gran % (Auto) 0.0 Neut % (Auto) 45.9 Lymph % (Auto) 26.9 Forrest % (Auto) 23.7 Eos % (Auto) 3.2 Baso % (Auto) 0.3 Neut # (Auto) 1.41 Lymph # (Auto) 0.83 L Forrest # (Auto) 0.73 H Eos # (Auto) 0.10 Baso # (Auto) 0.01 Immature Gran # (Auto) 0.00 L Polychromasia 1+ Anisocytosis Tear Drop Cells 1+ Ovalocytes 1+ ESR 27 H Sodium 137 Potassium 3.8 Chloride 104 Carbon Dioxide 30 Anion Gap 3 BUN 13 Creatinine 0.53 L Est Cr Clr Drug Dosing 103.7 eGFR 95.80 BUN/Creatinine Ratio 24.5 H Glucose 108 H Lactate 1.0 Calcium 7.4 L C-Reactive Protein 4.65 H Albumin 2.5 L Procalcitonin 0.13 Diagnostic Findings Chest X-Ray 09/09/24 07:58 XR chest 1V portable CLINICAL HISTORY: eval right pleural effusion COMPARISON STUDY: 09/08/2024 FINDINGS: Stable mild cardiomegaly without pulmonary vascular congestion. Stable right pleural catheter. Stable small bilateral pleural effusions and adjacent lower lung consolidation, right greater than left. No pneumothorax seen. IMPRESSION: Stable exam. ACT 112: Negative or not required by law. Electronically signed by: Jae Ordaz M.D. 09/09/2024 8:45 AM [facility] Care Time/CCT Total # of Minutes Spent Total Time Spent with Patient: Total time spent is greater than 50% in coordination of care (as documented) at patient's floor/unit and/or counseling patient: Coding Level of Care Code 84383 SUB INP/OBS CARE 2/35MIN Diagnoses Large pleural effusion J90 Rib fractures S22.49XA Acute dyspnea R06.00 Acute hypoxemic respiratory failure J96.01
--- NOTE | 2024-09-09 11:54 | Procedure Note ---
Procedure Note Date of Service September 09, 2024 Procedure: Pigtail chest tube removal Lining Machine Operator: Dr. Gus Quijano Indication: No more drainage Consent: Verbal consent was obtained from the patient Anesthesia: None Procedure: Old dressing of the pigtail catheter was removed. Under aseptic precautions and sterile measures, while the pigtail catheter was unwound. The catheter was gradually removed on exhalation. It was found to be intact Vaseline gauze followed by 4 x 4 and Tegaderm was applied The patient tolerated the procedure without obvious complication Complications: None Blood loss: None [facility] Procedure Codes (Charges) Pulmonary/Thoracic Procedure 1: Pulmonary and Thoracic: 82034 Remove lung catheter Coding CPT Codes Pulmonary/Thoracic - Pulmonary and Thoracic: 96360 Remove lung catheter ([id number]) Additional Codes Date of Service ([email or web address])
--- NOTE | 2024-09-09 22:27 | Hospitalist Progress Note ---
Date of Service September 09, 2024 Assessment & Plan (1) Pleural effusion: (2) Acute respiratory failure: (3) Multiple myeloma: (4) Atrial fibrillation: Plan 89 years old male with PMH of DNR/DNI @ [facility] since 08/24/2024, overweight with BMI 26.7 (height 182.9 cm; weight 89.4 kg), chronic macrocytic, normochromic anemia with progressive decline in Hb range from 12.6 g/dL, MCV 103.8, MCHC 34.7 (02/10/2018, 8:13am) to 8.6 g/dL, MCV 101.6, MCHC 34.8 (08/24/2024, 5:42am), multiple myeloma (diagnosed on 11/20/2022, 9:46am bone marrow biopsy, [facility] Heme-Onc Dr. Florencio Kingsley), subsequently treated with Revlimid and Velcade (starting in early July 2024), by [facility] Heme-Onc Dr. Florencio Kingsley, DVT on xarelto, ambulatory dysfunction resulting in mechanical fall at home alone, and acute right displaced intert rochanteric femur fracture with subtrochanteric extension, for which patient underwent closed reduction and insertion of right antegrade Garrison gamma 4, [id number] mm intramedullary femoral nail (04/17/2024, [facility], Orthopedic Surgeon Dr. Phong Slater), followed by complaints of fevers, chills, poor oral intake with N/V/D at home, culminating in: (A) severe septic shock due to acute necrotizing fasciitis of right proximal/lateral thigh with Clostridium septicum+ right thigh wound culture (08/17/2024), s/p I & D (08/17/2024, 9:30pm, [facility], Orthopedic Surgeon Dr. Jaden Menendez), and coincident Clostrdium septicum- associated bacteremia (as noted in 1 of 2 anaerobic bottles only from 08/17/2024, 3:57pm blood cultures x 2), treated with clindamycin 900mg IV q8 x 17 doses (08/17/2024, 8pm 08/23, 4am) and penicillin 4 million units IV q4 x 25 doses (08/20/2024, 11:30am to 08/24/2024, 2:00pm) and pressor support with norepinephrine @ 8 micrograms/minute (08/17/2024 - 08/21/2024) and vasopressin 0.04 units/min (08/17/2024 - 08/19/2024) while in [facility] (08/17/2024 - 08/24/2024), (B) acute hypoxic respiratory failure requiring intubation (08/17/2024), then extubation (08/18/2024) at [facility]. (C) acute rhabdomyolysis with CK 1,278 U/L (08/17/2024, 3:12pm) and repeat CK 327 U/L (08/18/2024, 4:40am) with normal renal function (cf., creatinine 1.06 mg/dL (08/17/2024, 3:12pm) and repeat creatinine 0.99 mg/dL (08/17/2024, 11:40pm). (D) new onset, paroxysmal AFIB leading to acute PE/DVT, for which patient was restarted on his home-scheduled Xarelto. Patient was subsequently discharged to [facility] on 08/24/2024 with: 1. augmentin 875mg/125mg PO tid from 08/24/2024 - 08/31/2024, as per [facility] Infectious Disease Dr. [address]. 2. wound vac placed over patient's right proximal/lateral thigh wound, as per [facility] Infectious Disease Dr. [address]. 3. midodrine 10mg PO tid to treat persistent hypotension after titrating off pressor support with norepinephrine @ 8 micrograms/minute (08/17/2024 - 08/21/2024) and vasopressin 0.04 units/min (08/17/2024 - 08/19/2024) while in [facility] (08/17/2024 - 08/24/2024). Patient was also advised by his [facility] Heme-Onc Dr. Florencio Kingsley to hold off Revlimid and Velcade until his follow up appointment with Dr. Kingsley on 09/02/2024 @ [facility]. Patient was subsequently sent back to [facility] ER on 09/04/2024 with complaints of progressively worsening SOB/LOTT for the previous 2 days. Patient was subsequently admitted to the inpatient hospitalist service @ [facility] on 09/04/2024 with the following diagnoses: 1. Acute hypoxic respiratory failure with O2 saturation 91% on room air (09/04/2024, 4:10pm), repeat O2 saturation 96% on high flow oxygen at 50 liters/minute (09/04/2024, 5:29pm) due to acute large right pleural effusion. 2. Acute fractures of right ribs #9 and #10 (lateral rib). 3. Chronic fractures of right ribs #10 (posterior rib) and #11. The following medical issues are being addressed on 09/09/2024: 1. Acute hypoxic respiratory failure with O2 saturation 91% on room air (09/04/2024, 4:10pm), repeat O2 saturation 96% on high flow oxygen at 50 liters/minute (09/04/2024, 5:29pm) due to acute large right pleural effusion. - Patient underwent therapeutic placement of right posterior 14 [place] pigtail catheter (09/05/2024, 7:00am, [facility] Auger Supervisor Dr. Christofer Chino) with 400 mL of blood fluid drained. Subsequently, acute hypoxic respiratory failure has RESOLVED with patient titrated off high flow oxygen at 50 liters/minute (09/04/2024, 5:29pm), followed by high flow oxygen at 40 liters/minute (09/05/2024, 7:47am), followed by 2 liters/minute O2 via nasal cannula (09/05/2024, 11:20am), followed by 1 liter/minute O2 via nasal cannula (09/05/2024, 12:00pm; 09/07/2024, 3:48am), followed by room air (09/08/2024, 8:21pm). 2. Acute fractures of right ribs #9 and #10 (lateral rib). - Patient reports 0/10 pain on 09/08/2024 - 09/09/2024 while continuing to receive tylenol 650mg PO q6 prn pain 1-10, headache, temp > 100.4 degrees Fahrenheit. 3. Chronic fractures of right ribs #10 (posterior rib) and #11. - Patient reports 0/10 pain on 09/08/2024 - 09/09/2024 while continuing to receive tylenol 650mg PO q6 prn pain 1-10, headache, temp > 100.4 degrees Fahrenheit. 4. Persistent hypotension after titrating off pressor support with norepinephrine @ 8 micrograms/minute (08/17/2024 - 08/21/2024) and vasopressin 0.04 units/min (08/17/2024 - 08/19/2024) while in [facility] (08/17/2024 - 08/24/2024). cf., BP 90/61 (09/07/2024, 7:52am) on midodrine 100mg PO tid (8am, 12pm, 5pm) to maintain MAP > 65 mm Hg. D/C'd midodrine 100mg PO tid (8am, 12pm, 5pm) on 09/07/2024. Persistent hypotension has subsequently RESOLVED with BP 114/67 (09/08/2024, 8:21pm) and current BP 103/57 (09/09/2024, 8:29pm). --- Post-hospital admission diagnoses include: 5. Acute blood loss anemia with progressive decline in Hb levels since admission date 09/04/2024 to 09/07/2024, now with Hb level rising, starting on 09/08/2024: cf., Hb 10.1 g/dL, MCV 106.0, MCHC 31.8 (09/04/2024, 4:36pm). cf., Hb 9.1 g/dL, MCV 104.5, MCHC 32.6 (09/05/2024, 7:15am). cf., Hb 7.4 g/dL, MCV 104.5, MCHC 31.8 (09/06/2024, 6:18am). cf., Hb 8.9 g/dL, no MCV, no MCHC (09/06/2024, 2:09pm). cf., Hb 7.1 g/dL, MCV 104.6, MCHC 31.3 (09/07/2024, 7:02am). cf., Hb 7.7 g/dL, MCV 105.5, MCHC 30.8 (09/08/2024, 11:18am). cf., Hb 8.0 g/dL, MCV 102.0, MCHC 32.1 (09/09/2024, 7:09am). Patient reports no mucosal bleeding and remains hemodynamically stable. Etiology of acute blood loss anemia remains unclear, but is probably due to incipient sepsis with publication of Pseudomonas aeruginosa (as reported in 09/06/2024 right hip wound culture). Check Hb in the 09/10/2024 am, and reserve packed RBC transfusion for Hb level < 7 g/dL. 6. Pancytopenia with progressive declines in all 3 cell lines: WBC, RBC, and platelets with rafia reached on 09/07/2024, now with WBC, RBC, and platelets rising on 09/08/2024: cf., WBC 5.19, Hb 10.1 g/dL, MCV 106.0, MCHC 31.8, platelet 169 (09/04/2024, 4:36pm). cf., WBC 3.60, Hb 9.1 g/dL, MCV 104.5, MCHC 32.6, platelet 167 (09/05/2024, 7:15am). cf., WBC 2.84, Hb 7.4 g/dL, MCV 104.5, MCHC 31.8, platelet 133 (09/06/2024, 6:18am). cf., no WBC, Hb 8.9 g/dL, no MCV, no MCHC, no platelet (09/06/2024, 2:09pm). cf., WBC 2.31, Hb 7.1 g/dL, MCV 104.6, MCHC 31.3, platelet 142 (09/07/2024, 7:02am)(rafia). cf., WBC 2.78, Hb 7.7 g/dL, MCV 105.5, MCHC 30.8, platelet 150 (09/08/2024, 11:18am). cf., WBC 3.08, Hb 8.0 g/dL, MCV 102.0, MCHC 32.1, platelet 149 (09/09/2024, 7:09am). Patient reports no fevers, chills, or diaphoresis on 09/07/2024. Etiology of pancytopenia remains unclear, but is probably due to incipient sepsis with publication of Pseudomonas aeruginosa (as reported in 09/06/2024 right hip wound culture). 7. Chronic/persistent AFIB. cf., EKG (09/04/2024, 4:16pm): AFIB @ 78, QTC 408, < 0.[address] depression in V4, V5, no acute ST elevations; q in V2 (by my review). Patient remains asymptomatic with no complaints of chest pain or palpitations on 09/07/2024 - 09/08/2024. Continue to hold OFF home-scheduled metoprolol 12.5mg PO qam given potential for this medication to cause hypotension, and continue to hold off patient's home-scheduled xarelto 15mg PO daily given potential for this medication to cause bleeding. 8. Incipient sepsis with publication of Pseudomonas aeruginosa (as reported in 09/06/2024 right hip wound culture). Patient remains afebrile with no complaints of right hip wound / thigh pain on 09/08/2024 - 09/09/2024. Started meropenem 500mg IV q6 (day #03/19 on 09/08/2024, 12:52pm, 5:53pm). Check vitals, right hip wound / right thigh, WBC w/diff, lactic acid, and procalcitonin in the 09/10/2024 am. In the interim, wound vac was applied over right hip wound on 09/09/2024 am. 9. Acute lactic acid elevation, RESOLVED. cf., Lactic acid #1 2.1 mmol/L (09/08/2024, 11:18am). cf., Lactic acid #2 2.2 mmol/L (09/08/2024, 2:51pm). cf., Lactic acid #3 2.3 mmol/L (09/08/2024, 6:34pm). cf., Lactic acid #3 2.3 mmol/L (09/08/2024, 6:34pm). cf., Lactic acid #4 1.0 mmol/L (09/09/2024, 7:09am). Etiology of acute lactic acid elevation remains unclear, but is probably due to acute dehydration from decreased oral intake of water. Hence, I have opted to rehydrate patient with 1 liter of 0.9% NS @ 89 mL/hr (09/08/2024, 7:04pm), based on a delivery rate of 1 mL of 0.9% NS per kg of body weight per hour, and a body weight of 89.4 kg. Observe. 10. Disposition. Code status remains unchanged at DNR/DNI @ [facility] since 08/24/2024. Patient, patient's son, Mr. Ismael Patterson ( ), and patient's daughter, Ms. Divine Evans ( )) underwent Palliative Care Service evaluation (09/08/2024, 9:05am) with Ms. Jyothi Denise. Together, they affirmed that patient is too sick to continue with Revlimid therapy for his multiple myeloma. Patient also had adverse effects while receiving Velcade, which precludes future utilization by patient. In addition, they affirmed that patient would not be discharged to hospice/comfort measures only, and instead, they affirmed that patient would begin a 10 day course of meropenem 500mg IV q8 (09/08/2024, 5:53pm) as Case Management Service enters a referral for patient to go to [facility] as patient is too weak to participate with physical therapy 3 hours per day, as required of patients at [facility]. Hence, I anticipate that this patient will remain in [facility] for the next 1 day, after which, patient will be discharged to [facility]. Admission and Anticipated Discharge Date Admission Date: September 04, 2024 Subjective "I feel ok today. No complaints. They took the tube out of my right chest at 8:30am this morning (09/09/2024). I am breathing fine. No problems there. I just can't chew my food well cause I had 8 molars removed recently because they were too loose." Review of Systems Constitutional: Positive for generalized weakness. Negative for antecedent/coincident fevers, chills, diaphoresis, cough, wheeze, sore throat, hemoptysis, chest pains, palpitations, pleurisy, nausea, vomiting, diarrhea, abdominal pain, pelvic pain, hematemesis, hematochezia, melena, hematuria, dysuria, frequency, urgency, headaches, dizziness, lightheadedness, visual changes, hearing changes, falls, syncope, trauma, travel history, sick contacts, or food/drug ingestions novel or new. All other review of systems are reported as negative by the patient on 09/09/2024. Physical Exam Constitutional: General: Run-down, worn-out, asthenic with mouth hanging wide open. Comfortable, cooperative, coherent. Wide awake and alert. Not confused, lethargic, or obtunded. Patient speaks in complete, fluent, and articulate sentences without pause, interruption, cough, or wheeze. HEENT: Normocephalic, atraumatic. Pupils equally round and reactive to light. No nystagmus, gaze paresis, anisocoria, miosis, mydriasis, hyphema, scleral injection, conjunctivitis, or pterygium. No otorrhea. No pharyngeal erythema, edema, or discharge. Neck: Supple, no stridor, bruit, goiter, or hepato-jugular reflux. Jugular venous pressure is estimated to be 3 cm above the sternal angle of Horacio, which in turn, is 5 cm above the level of the right atrium; with jugular venous pressure estimated to be 8 cm, then, there is no jugular venous distention on 09/09/2024. Lymphatics: No cervical (anterior/posterior), supraclavicular, infraclavicular, axillary, epitrochlear, or inguinal adenopathy. Chest: Symmetric rise and fall with respirations. Non-tender to palpation. Right-sided chest tube in situ (inserted on 09/05/2024, 7:00am, [facility] Auger Supervisor Dr. Christofer Chino) with expression of 400 mL of grossly bloody effluent removed. Right-sided chest tube removed on 09/09/2024, 8:30am, [facility] Auger Supervisor Dr. Gus Quijano). Lungs: Clear to auscultation and percussion. No audible expiratory wheeze, egophony, pectoriloquy, increase in tactile fremitus, or flatness/dullness to percussion at the bases. Heart: Regular rate. Irregularly irregular rhythm. S1 and S2 noted. No S3 or S4 summation gallop. No tripartite friction rub. Grade II/ early systolic murmur @ LLSB without radiation to the carotids, axilla, or back, and which remains invariant in regards to the respiratory cycle. Abdomen: Soft, non-tender, non-distended. No rebound, guarding, Osborne's sign, or organomegaly. Bowel sounds auscultated in all 4 quadrants. Extremities: No clubbing, cyanosis, or edema in upper extremities or lower extremities bilaterally. 2+ pedal pulses bilaterally. Skin: No decubitus ulcer or enanthem. Genito-urinary: No urethral discharge. + vargas catheter with 0.33 mL/kg/hr expressed from 09/08/2024, 10:27pm to 09/09/2024, 10:27pm. Neurology: Alert and oriented in regards to person, place, time, and situation. DTR+. 4/5 motor strength in all 4 extremities, both proximally and distally. No myoclonus, tremors, or tics. Psychiatry: No homicidal ideation. No suicidal ideation. No flat affect; smiles appropriately. Results & Data Results & Data Vital Signs (Past 12 Hours) Vital Signs Temp Pulse Pulse Resp BP Pulse Ox O2 Del Method 09/09/24 20:29 Room Air 09/09/24 19:24 37.2 C 98 H 18 103/57 L 94 Room Air 09/09/24 16:45 86 09/09/24 15:36 36.7 C 83 17 93/54 L 96 Room Air 09/09/24 14:20 96 09/09/24 10:53 36.9 C 84 17 94/55 L 100 Room Air Laboratory Results WBC 5.19, N75 L9 M15, Hb 10.1, MCV 106.0, MCHC 31.8, platelet 169 (09/04/2024, 4:36pm). WBC 3.60, no differential, Hb 9.1, MCV 104.5, MCHC 32.6, platelet 167 (09/05/2024, 7:15am). WBC 2.84, no differential, Hb 7.4, MCV 104.5, MCHC 31.8, platelet 133 (09/06/2024, 6:18am). Hb 8.9 (09/06/2024, 2:09pm). WBC 2.31, no differential, Hb 7.1, MCV 104.6, MCHC 31.3, platelet 142 (09/07/2024, 7:02am). WBC 2.78, N55 L18 M22 E5, Hb 7.7, MCV 105.5, MCHC 30.8, platelet 150 (09/08/2024, 11:18am). WBC 3.08, N46 L27 M24 E3, Hb 8.0, MCV 102.0, MCHC 32.1, platelet 149 (09/09/2024, 7:09am). Right thigh wound culture (09/06/2024): Pseudomonas aeruginosa Right thigh wound culture (08/17/2024): Clostridium septicum ESR 31 mm/hr (09/07/2024, 12:11pm). ESR 37 mm/hr (09/08/2024, 11:18am). ESR 27 mm/hr (09/09/2024, 7:09am). CRP 6.04 mg/dL (09/07/2024, 12:11pm). CRP 4.59 mg/dL (09/08/2024, 11:18am). CRP 4.65 mg/dL (09/09/2024, 7:09am). Na 139, K 3.6, BUN 25, creatinine 0.8, glucose 190, Ca 8.3 (09/04/2024, 4:36pm). Na 141, K 3.4, BUN 25, creatinine 0.72, glucose 141, Ca 8.1 (09/05/2024, 7:15am). Na 141, K 3.5, BUN 21, creatinine 0.57, glucose 116, Ca 7.6 (09/06/2024, 2:09pm). Na 139, K 3.9, BUN 19, creatinine 0.71, glucose 102, Ca 7.6 (09/07/2024, 7:02am). Na 138, K 3.9, BUN 15, creatinine 0.61, glucose 108, Ca 7.6 (09/08/2024, 11:18am). Na 137, K 3.8, BUN 13, creatinine 0.53, glucose 108, Ca 7.4 (09/09/2024, 7:09am). Lactic acid #1 2.1 mmol/L (09/08/2024, 11:18am). Lactic acid #2 2.2 mmol/L (09/08/2024, 2:51pm). Lactic acid #3 2.3 mmol/L (09/08/2024, 6:34pm). Lactic acid #4 1.0 mmol/L (09/09/2024, 7:09am). Procalcitonin #1 0.13 ng/mL (09/08/2024, 11:18am). Procalcitonin #2 0.13 ng/mL (09/09/2024, 7:09am). Diagnostic Findings Portable CXR (09/04/2024, 4:20pm): 1. Complete opacification of the right hemithorax, consistent with enlarged pleural effusion from what was seen on prior 08/20/2024 portable CXR. 2. Smaller left pleural effusion is also appreciated. 3. Inferolateral right rib fractures. 4. No cardiomegaly, pulmonary vascular congestion, pneumothorax, or infiltrate. (by my review). CT chest without IV contrast (09/04/2024, 5:33pm): 1. Large right pleural effusion occupying the hemithorax, and compressing the right lung. 2. Small left pleural effusion. 3. Right ribs 9 and 10, contain displaced rib fractures, which may be acute. 4. There is also healing callus associated with a posterior right rib 11, and another portion of the posterior right rib 10, suggesting healing fractures. Portable CXR (, 6:54am). 1. Complete white out of right lung. (Minimal decrease in haziness compared to previous radiograph)-interval placement of tube. 2. Minimal blunting of left costophrenic angle with hazy left lower zone opacity. (Stable) 3. No cardiomegaly, pulmonary vascular congestion, pneumothorax, or infiltrate. (by my review). Portable CXR (09/06/2024, 7:00am): 1. Chest tube seen in situ. 2. Interval regressed, homogeneous opacification of the right lower zone obscuring the right costophrenic recess. Mild pleural effusion. 3. Small/minimal pleural reaction at the left costophrenic recess. Minimal left pleural effusion. 4. Cardiomegaly with bilateral hilar congestion. 5. Comparing the previous x-ray dated 09/05/2024, there is significant regressed right pleural effusion. 6. No pneumothorax. (by my review). Portable CXR (09/07/2024, 7:00am): 1. Chest tube seen in situ on right side(unchanged). 2. Homogeneous ground glassing is noted involving right lung as compared to its counter part-new finding. 3. Interval stable homogeneous opacification of the right lower zone obscuring the right costophrenic recess. Mild right pleural effusion. 4. Small/minimal pleural reaction at the left costophrenic recess. Minimal left pleural effusion.-stable. 5. Cardiomegaly with bilateral hilar congestion. 6. No pneumothorax. (by my review). PG Care Time/CCT Total # of Minutes Spent Total Time Spent with Patient: Total time spent is greater than 50% in coordination of care (as documented) at patient's floor/unit and/or counseling patient: Coding Level of Care Code 95885 SUB INP/OBS CARE 50MIN Diagnoses Pleural effusion J90 Acute respiratory failure J96.00 Multiple myeloma C90.00 Atrial fibrillation I48.91
[2024-09-10 08:32] LABS: Hematocrit (blood only) 27.1 % (42.0-52.0); Hemoglobin 8.7 g/dl (14.0-18.0); Immature Granulocytes # (auto) 0.01 K/uL (0.01-0.20); Immature Granulocytes % (auto) 0.3 %; Mean Corpuscular Hemoglobin 33.0 pg (25.0-34.0); Mean Corpuscular Volume 102.7 fL (80.0-100.0); Platelet Count 166 K/uL (130-400); RDW Standard Deviation 65.1 fL (36.4-46.3); Red Blood Count 2.64 M/uL (4.70-6.10); White Blood Count 2.97 K/ul (4.8-10.8)
--- NOTE | 2024-09-10 21:51 | Hospitalist Progress Note ---
Date of Service September 10, 2024 Assessment & Plan (1) Pleural effusion: (2) Acute respiratory failure: (3) Multiple myeloma: (4) Atrial fibrillation: Plan 89 years old male with PMH of DNR/DNI @ [facility] since 08/24/2024, overweight with BMI 26.7 (height 182.9 cm; weight 89.4 kg), chronic macrocytic, normochromic anemia with progressive decline in Hb range from 12.6 g/dL, MCV 103.8, MCHC 34.7 (02/10/2018, 8:13am) to 8.6 g/dL, MCV 101.6, MCHC 34.8 (08/24/2024, 5:42am), multiple myeloma (diagnosed on 11/20/2022, 9:46am bone marrow biopsy, [facility] Heme-Onc Dr. Florencio Kingsley), subsequently treated with Revlimid and Velcade (starting in early July 2024), by [facility] Heme-Onc Dr. Florencio Kingsley, DVT on xarelto, ambulatory dysfunction resulting in mechanical fall at home alone, and acute right displaced intert rochanteric femur fracture with subtrochanteric extension, for which patient underwent closed reduction and insertion of right antegrade Neosho gamma 4, [id number] mm intramedullary femoral nail (04/17/2024, [facility], Orthopedic Surgeon Dr. Phong Slater), followed by complaints of fevers, chills, poor oral intake with N/V/D at home, culminating in: (A) severe septic shock due to acute necrotizing fasciitis of right proximal/lateral thigh with Clostridium septicum+ right thigh wound culture (08/17/2024), s/p I & D (08/17/2024, 9:30pm, [facility], Orthopedic Surgeon Dr. Jaden Menendez), and coincident Clostrdium septicum- associated bacteremia (as noted in 1 of 2 anaerobic bottles only from 08/17/2024, 3:57pm blood cultures x 2), treated with clindamycin 900mg IV q8 x 17 doses (08/17/2024, 8pm 08/23, 4am) and penicillin 4 million units IV q4 x 25 doses (08/20/2024, 11:30am to 08/24/2024, 2:00pm) and pressor support with norepinephrine @ 8 micrograms/minute (08/17/2024 - 08/21/2024) and vasopressin 0.04 units/min (08/17/2024 - 08/19/2024) while in [facility] (08/17/2024 - 08/24/2024), (B) acute hypoxic respiratory failure requiring intubation (08/17/2024), then extubation (08/18/2024) at [facility]. (C) acute rhabdomyolysis with CK 1,278 U/L (08/17/2024, 3:12pm) and repeat CK 327 U/L (08/18/2024, 4:40am) with normal renal function (cf., creatinine 1.06 mg/dL (08/17/2024, 3:12pm) and repeat creatinine 0.99 mg/dL (08/17/2024, 11:40pm). (D) new onset, paroxysmal AFIB leading to acute PE/DVT, for which patient was restarted on his home-scheduled Xarelto. Patient was subsequently discharged to [facility] on 08/24/2024 with: 1. augmentin 875mg/125mg PO tid from 08/24/2024 - 08/31/2024, as per [facility] Infectious Disease Dr. [address]. 2. wound vac placed over patient's right proximal/lateral thigh wound, as per [facility] Infectious Disease Dr. [address]. 3. midodrine 10mg PO tid to treat persistent hypotension after titrating off pressor support with norepinephrine @ 8 micrograms/minute (08/17/2024 - 08/21/2024) and vasopressin 0.04 units/min (08/17/2024 - 08/19/2024) while in [facility] (08/17/2024 - 08/24/2024). Patient was also advised by his [facility] Heme-On[facility] Dr. Florencio Kingsley to hold off Revlimid and Velcade until his follow up appointment with Dr. Kingsley on 09/02/2024 @ [facility]. Patient was subsequently sent back to [facility] ER on 09/04/2024 with complaints of progressively worsening SOB/LOTT for the previous 2 days. Patient was subsequently admitted to the inpatient hospitalist service @ [facility] on 09/04/2024 with the following diagnoses: 1. Acute hypoxic respiratory failure with O2 saturation 91% on room air (09/04/2024, 4:10pm), repeat O2 saturation 96% on high flow oxygen at 50 liters/minute (09/04/2024, 5:29pm) due to acute large right pleural effusion. 2. Acute fractures of right ribs #9 and #10 (lateral rib). 3. Chronic fractures of right ribs #10 (posterior rib) and #11. The following medical issues are being addressed on 09/10/2024: 1. Acute hypoxic respiratory failure with O2 saturation 91% on room air (09/04/2024, 4:10pm), repeat O2 saturation 96% on high flow oxygen at 50 liters/minute (09/04/2024, 5:29pm) due to acute large right pleural effusion. - Patient underwent therapeutic placement of right posterior 14 Nigerien pigtail catheter (09/05/2024, 7:00am, [facility] Water Resources Engineer Dr. Christofer Chino) with 400 mL of blood fluid drained. Subsequently, acute hypoxic respiratory failure has RESOLVED with patient titrated off high flow oxygen at 50 liters/minute (09/04/2024, 5:29pm), followed by high flow oxygen at 40 liters/minute (09/05/2024, 7:47am), followed by 2 liters/minute O2 via nasal cannula (09/05/2024, 11:20am), followed by 1 liter/minute O2 via nasal cannula (09/05/2024, 12:00pm; 09/07/2024, 3:48am), followed by room air (09/08/2024, 8:21pm)(09/10/2024, 7:09pm). 2. Acute fractures of right ribs #9 and #10 (lateral rib). - Patient reports 0/10 pain on 09/08/2024 - 09/10/2024 while continuing to receive tylenol 650mg PO q6 prn pain 1-10, headache, temp > 100.4 degrees Fahrenheit. 3. Chronic fractures of right ribs #10 (posterior rib) and #11. - Patient reports 0/10 pain on 09/08/2024 - 09/10/2024 while continuing to receive tylenol 650mg PO q6 prn pain 1-10, headache, temp > 100.4 degrees Fahrenheit. 4. Persistent hypotension after titrating off pressor support with norepinephrine @ 8 micrograms/minute (08/17/2024 - 08/21/2024) and vasopressin 0.04 units/min (08/17/2024 - 08/19/2024) while in [facility] (08/17/2024 - 08/24/2024). cf., BP 90/61 (09/07/2024, 7:52am) on midodrine 100mg PO tid (8am, 12pm, 5pm) to maintain MAP > 65 mm Hg. D/C'd midodrine 100mg PO tid (8am, 12pm, 5pm) on 09/07/2024. Persistent hypotension has subsequently RESOLVED with BP 114/67 (09/08/2024, 8:21pm), repeat BP 103/57 (09/09/2024, 8:29pm), and current BP 104/59 (09/10/2024, 7:09pm). --- Post-hospital admission diagnoses include: 5. Acute blood loss anemia with progressive decline in Hb levels since admission date 09/04/2024 to 09/07/2024, now with Hb level rising, starting on 09/08/2024: cf., Hb 10.1 g/dL, MCV 106.0, MCHC 31.8 (09/04/2024, 4:36pm). cf., Hb 9.1 g/dL, MCV 104.5, MCHC 32.6 (09/05/2024, 7:15am). cf., Hb 7.4 g/dL, MCV 104.5, MCHC 31.8 (09/06/2024, 6:18am). cf., Hb 8.9 g/dL, no MCV, no MCHC (09/06/2024, 2:09pm). cf., Hb 7.1 g/dL, MCV 104.6, MCHC 31.3 (09/07/2024, 7:02am). cf., Hb 7.7 g/dL, MCV 105.5, MCHC 30.8 (09/08/2024, 11:18am). cf., Hb 8.0 g/dL, MCV 102.0, MCHC 32.1 (09/09/2024, 7:09am). cf., Hb 8.7 g/dL, MCV 102.7, MCHC 32.1 (09/10/2024, 8:10am). Patient reports no mucosal bleeding and remains hemodynamically stable. Etiology of acute blood loss anemia remains unclear, but is probably due to incipient sepsis with publication of Pseudomonas aeruginosa (as reported in 09/06/2024 right hip wound culture). Check Hb in the 09/11/2024 am, and reserve packed RBC transfusion for Hb level < 7 g/dL. 6. Pancytopenia with progressive declines in all 3 cell lines: WBC, RBC, and platelets with rafia reached on 09/07/2024, now with WBC, RBC, and platelets rising on 09/08/2024: cf., WBC 5.19, Hb 10.1 g/dL, MCV 106.0, MCHC 31.8, platelet 169 (09/04/2024, 4:36pm). cf., WBC 3.60, Hb 9.1 g/dL, MCV 104.5, MCHC 32.6, platelet 167 (09/05/2024, 7:15am). cf., WBC 2.84, Hb 7.4 g/dL, MCV 104.5, MCHC 31.8, platelet 133 (09/06/2024, 6:18am). cf., no WBC, Hb 8.9 g/dL, no MCV, no MCHC, no platelet (09/06/2024, 2:09pm). cf., WBC 2.31, Hb 7.1 g/dL, MCV 104.6, MCHC 31.3, platelet 142 (09/07/2024, 7:02am)(rafia). cf., WBC 2.78, Hb 7.7 g/dL, MCV 105.5, MCHC 30.8, platelet 150 (09/08/2024, 11:18am). cf., WBC 3.08, Hb 8.0 g/dL, MCV 102.0, MCHC 32.1, platelet 149 (09/09/2024, 7:09am). cf., WBC 2.97, Hb 8.7 g/dL, MCV 102.7, MCHC 32.1, platelet 166 (09/10/2024, 8:10am). Patient reports no fevers, chills, or diaphoresis on 09/07/2024. Etiology of pancytopenia remains unclear, but is probably due to incipient sepsis with publication of Pseudomonas aeruginosa (as reported in 09/06/2024 right hip wound culture). 7. Chronic/persistent AFIB. cf., EKG (09/04/2024, 4:16pm): AFIB @ 78, QTC 408, < 0.[address] depression in V4, V5, no acute ST elevations; q in V2 (by my review). Patient remains asymptomatic with no complaints of chest pain or palpitations on 09/07/2024 - 09/08/2024. Continue to hold OFF home-scheduled metoprolol 12.5mg PO qam given potential for this medication to cause hypotension, and continue to hold off patient's home-scheduled xarelto 15mg PO daily given potential for this medication to cause bleeding. 8. Incipient sepsis with publication of Pseudomonas aeruginosa (as reported in 09/06/2024 right hip wound culture). Patient remains afebrile with no complaints of right hip wound / thigh pain on 09/08/2024 - 09/09/2024. Started meropenem 500mg IV q6 (day #03/19 on 09/08/2024, 12:52pm, 5:53pm). Check vitals, right hip wound / right thigh, WBC w/diff, lactic acid, and procalcitonin in the 09/10/2024 am. In the interim, wound vac was applied over right hip wound on 09/09/2024 am. 9. Acute lactic acid elevation, RESOLVED. cf., Lactic acid #1 2.1 mmol/L (09/08/2024, 11:18am). cf., Lactic acid #2 2.2 mmol/L (09/08/2024, 2:51pm). cf., Lactic acid #3 2.3 mmol/L (09/08/2024, 6:34pm). cf., Lactic acid #3 2.3 mmol/L (09/08/2024, 6:34pm). cf., Lactic acid #4 1.0 mmol/L (09/09/2024, 7:09am). cf., Lactic acid #4 1.0 mmol/L (09/09/2024, 7:09am). cf., Lactic acid #5 1.9 mmol/L (09/10/2024, 8:10am). Etiology of acute lactic acid elevation remains unclear, but is probably due to acute dehydration from decreased oral intake of water. Hence, I have opted to rehydrate patient with 1 liter of 0.9% NS @ 89 mL/hr (09/08/2024, 7:04pm), based on a delivery rate of 1 mL of 0.9% NS per kg of body weight per hour, and a body weight of 89.4 kg. Observe. 10. Disposition. Code status remains unchanged at DNR/DNI @ [facility] since 08/24/2024. Patient, patient's son, Mr. Ismael Patterson ( ), and patient's daughter, Ms. Divine Evans ( )) underwent Palliative Care Service evaluation (09/08/2024, 9:05am) with Ms. Jyothi Denise. Together, they affirmed that patient is too sick to continue with Revlimid therapy for his multiple myeloma. Patient also had adverse effects while receiving Velcade, which precludes future utilization by patient. In addition, they affirmed that patient would not be discharged to hospice/comfort measures only, and instead, they affirmed that patient would begin a 10 day course of meropenem 500mg IV q8 (09/08/2024, 5:53pm) as Case Management Service enters a referral for patient to go to [facility] as patient is too weak to participate with physical therapy 3 hours per day, as required of patients at [facility]. Hence, I anticipate that this patient will remain in [facility] for the next 1 day, after which, patient will be discharged to [facility]. Admission and Anticipated Discharge Date Admission Date: September 04, 2024 Subjective "I feel fine. No complaints today. Hopefully, I can go to [facility] for rehab tomorrow. I am gonna beat this thing." Review of Systems Constitutional: Negative for antecedent/coincident fevers, chills, diaphoresis, cough, wheeze, sore throat, hemoptysis, chest pains, palpitations, pleurisy, nausea, vomiting, diarrhea, abdominal pain, pelvic pain, hematemesis, hematochezia, melena, hematuria, dysuria, frequency, urgency, headaches, dizziness, lightheadedness, visual changes, hearing changes, weakness, falls, syncope, trauma, travel history, sick contacts, or food/drug ingestions novel or new. All other review of systems are reported as negative by the patient on 09/10/2024. Physical Exam Constitutional: General: Run-down, worn-out, asthenic with mouth closed now. Comfortable, cooperative, coherent. Wide awake and alert. Not confused, lethargic, or obtunded. Patient speaks in complete, fluent, and articulate sentences without pause, interruption, cough, or wheeze. HEENT: Normocephalic, atraumatic. Pupils equally round and reactive to light. No nystagmus, gaze paresis, anisocoria, miosis, mydriasis, hyphema, scleral injection, conjunctivitis, or pterygium. No otorrhea. No pharyngeal erythema, edema, or discharge. Neck: Supple, no stridor, bruit, goiter, or hepato-jugular reflux. Jugular venous pressure is estimated to be 3 cm above the sternal angle of Horacio, which in turn, is 5 cm above the level of the right atrium; with jugular venous pressure estimated to be 8 cm, then, there is no jugular venous distention on 09/10/2024. Lymphatics: No cervical (anterior/posterior), supraclavicular, infraclavicular, axillary, epitrochlear, or inguinal adenopathy. Chest: Symmetric rise and fall with respirations. Non-tender to palpation. Right-sided chest tube in situ (inserted on 09/05/2024, 7:00am, [facility] Water Resources Engineer Dr. Christofer Chino) with expression of 400 mL of grossly bloody effluent removed. Right-sided chest tube removed on 09/09/2024, 8:30am, [facility] Water Resources Engineer Dr. Gus Quijano). Lungs: Clear to auscultation and percussion. No audible expiratory wheeze, egophony, pectoriloquy, increase in tactile fremitus, or flatness/dullness to percussion at the bases. Heart: Regular rate. Irregularly irregular rhythm. S1 and S2 noted. No S3 or S4 summation gallop. No tripartite friction rub. Grade II/ early systolic murmur @ LLSB without radiation to the carotids, axilla, or back, and which remains invariant in regards to the respiratory cycle. Abdomen: Soft, non-tender, non-distended. No rebound, guarding, Osborne's sign, or organomegaly. Bowel sounds auscultated in all 4 quadrants. Extremities: No clubbing, cyanosis, or edema in upper extremities or lower extremities bilaterally. 2+ pedal pulses bilaterally. Skin: No decubitus ulcer or enanthem. Genito-urinary: No urethral discharge. + vargas catheter with 0.40 mL/kg/hr expressed from 09/09/2024, 9:42pm to 09/10/2024, 9:42pm. Neurology: Alert and oriented in regards to person, place, time, and situation. DTR+. 4/5 motor strength in all 4 extremities, both proximally and distally. No myoclonus, tremors, or tics. Psychiatry: No homicidal ideation. No suicidal ideation. No flat affect; smiles appropriately. Results & Data Results & Data Vital Signs (Past 12 Hours) Vital Signs Temp Pulse Resp BP Pulse Ox O2 Del Method 09/10/24 19:09 37.0 C 70 18 104/59 L 96 Room Air 09/10/24 15:19 36.4 C L 72 18 90/50 L 94 Room Air 09/10/24 11:07 36.4 C L 75 18 92/51 L 95 Room Air 09/10/24 09:48 Room Air Laboratory Results WBC 5.19, N75 L9 M15, Hb 10.1, MCV 106.0, MCHC 31.8, platelet 169 (09/04/2024, 4:36pm). WBC 3.60, no differential, Hb 9.1, MCV 104.5, MCHC 32.6, platelet 167 (09/05/2024, 7:15am). WBC 2.84, no differential, Hb 7.4, MCV 104.5, MCHC 31.8, platelet 133 (09/06/2024, 6:18am). Hb 8.9 (09/06/2024, 2:09pm). WBC 2.31, no differential, Hb 7.1, MCV 104.6, MCHC 31.3, platelet 142 (09/07/2024, 7:02am). WBC 2.78, N55 L18 M22 E5, Hb 7.7, MCV 105.5, MCHC 30.8, platelet 150 (09/08/2024, 11:18am). WBC 3.08, N46 L27 M24 E3, Hb 8.0, MCV 102.0, MCHC 32.1, platelet 149 (09/09/2024, 7:09am). WBC 2.97, N53 L23 M21 E3, Hb 8.7, MCV 102.7, MCHC 32.1, platelet 166 (09/10/2024, 8:10am). Right thigh wound culture (09/06/2024): Pseudomonas aeruginosa Right thigh wound culture (08/17/2024): Clostridium septicum ESR 31 mm/hr (09/07/2024, 12:11pm). ESR 37 mm/hr (09/08/2024, 11:18am). ESR 27 mm/hr (09/09/2024, 7:09am). ESR 36 mm/hr (09/10/2024, 8:10am). CRP 6.04 mg/dL (09/07/2024, 12:11pm). CRP 4.59 mg/dL (09/08/2024, 11:18am). CRP 4.65 mg/dL (09/09/2024, 7:09am). CRP 6.04 mg/dL (09/10/2024, 8:10am). Na 139, K 3.6, BUN 25, creatinine 0.8, glucose 190, Ca 8.3 (09/04/2024, 4:36pm). Na 141, K 3.4, BUN 25, creatinine 0.72, glucose 141, Ca 8.1 (09/05/2024, 7:15am). Na 141, K 3.5, BUN 21, creatinine 0.57, glucose 116, Ca 7.6 (09/06/2024, 2:09pm). Na 139, K 3.9, BUN 19, creatinine 0.71, glucose 102, Ca 7.6 (09/07/2024, 7:02am). Na 138, K 3.9, BUN 15, creatinine 0.61, glucose 108, Ca 7.6 (09/08/2024, 11:18am). Na 137, K 3.8, BUN 13, creatinine 0.53, glucose 108, Ca 7.4 (09/09/2024, 7:09am). Lactic acid #1 2.1 mmol/L (09/08/2024, 11:18am). Lactic acid #2 2.2 mmol/L (09/08/2024, 2:51pm). Lactic acid #3 2.3 mmol/L (09/08/2024, 6:34pm). Lactic acid #4 1.0 mmol/L (09/09/2024, 7:09am). Lactic acid #5 1.9 mmol/L (09/10/2024, 8:10am). Procalcitonin #1 0.13 ng/mL (09/08/2024, 11:18am). Procalcitonin #2 0.13 ng/mL (09/09/2024, 7:09am). Procalcitonin #3 0.11 ng/mL (09/10/2024, 8:10am). Diagnostic Findings Portable CXR (09/04/2024, 4:20pm): 1. Complete opacification of the right hemithorax, consistent with enlarged pleural effusion from what was seen on prior 08/20/2024 portable CXR. 2. Smaller left pleural effusion is also appreciated. 3. Inferolateral right rib fractures. 4. No cardiomegaly, pulmonary vascular congestion, pneumothorax, or infiltrate. (by my review). CT chest without IV contrast (09/04/2024, 5:33pm): 1. Large right pleural effusion occupying the hemithorax, and compressing the right lung. 2. Small left pleural effusion. 3. Right ribs 9 and 10, contain displaced rib fractures, which may be acute. 4. There is also healing callus associated with a posterior right rib 11, and another portion of the posterior right rib 10, suggesting healing fractures. Portable CXR (, 6:54am). 1. Complete white out of right lung. (Minimal decrease in haziness compared to previous radiograph)-interval placement of tube. 2. Minimal blunting of left costophrenic angle with hazy left lower zone opacity. (Stable) 3. No cardiomegaly, pulmonary vascular congestion, pneumothorax, or infiltrate. (by my review). Portable CXR (09/06/2024, 7:00am): 1. Chest tube seen in situ. 2. Interval regressed, homogeneous opacification of the right lower zone obscuring the right costophrenic recess. Mild pleural effusion. 3. Small/minimal pleural reaction at the left costophrenic recess. Minimal left pleural effusion. 4. Cardiomegaly with bilateral hilar congestion. 5. Comparing the previous x-ray dated 09/05/2024, there is significant regressed right pleural effusion. 6. No pneumothorax. (by my review). Portable CXR (09/07/2024, 7:00am): 1. Chest tube seen in situ on right side(unchanged). 2. Homogeneous ground glassing is noted involving right lung as compared to its counter part-new finding. 3. Interval stable homogeneous opacification of the right lower zone obscuring the right costophrenic recess. Mild right pleural effusion. 4. Small/minimal pleural reaction at the left costophrenic recess. Minimal left pleural effusion.-stable. 5. Cardiomegaly with bilateral hilar congestion. 6. No pneumothorax. (by my review). PG Care Time/CCT Total # of Minutes Spent Total Time Spent with Patient: Total time spent is greater than 50% in coordination of care (as documented) at patient's floor/unit and/or counseling patient: Coding Level of Care Code 45187 SUB INP/OBS CARE 3/50MIN Diagnoses Pleural effusion J90 Acute respiratory failure J96.00 Multiple myeloma C90.00 Atrial fibrillation I48.91
[2024-09-11 07:25] LABS: Hematocrit (blood only) 24.0 % (42.0-52.0); Hemoglobin 7.9 g/dl (14.0-18.0); Immature Granulocytes # (auto) 0.01 K/uL (0.01-0.20); Immature Granulocytes % (auto) 0.3 %; Mean Corpuscular Hemoglobin 32.8 pg (25.0-34.0); Mean Corpuscular Volume 99.6 fL (80.0-100.0); Platelet Count 172 K/uL (130-400); RDW Standard Deviation 62.8 fL (36.4-46.3); Red Blood Count 2.41 M/uL (4.70-6.10); White Blood Count 2.92 K/ul (4.8-10.8)
[2024-09-11 08:26] LABS: Ovalocytes 1+; Polychromasia 2+
--- NOTE | 2024-09-11 21:57 | Hospitalist Progress Note ---
Date of Service September 11, 2024 Assessment & Plan (1) Pleural effusion: (2) Acute respiratory failure: (3) Multiple myeloma: (4) Atrial fibrillation: Plan 89 years old male with PMH of DNR/DNI @ [facility] since 08/24/2024, overweight with BMI 26.7 (height 182.9 cm; weight 89.4 kg), chronic macrocytic, normochromic anemia with progressive decline in Hb range from 12.6 g/dL, MCV 103.8, MCHC 34.7 (02/10/2018, 8:13am) to 8.6 g/dL, MCV 101.6, MCHC 34.8 (08/24/2024, 5:42am), multiple myeloma (diagnosed on 11/20/2022, 9:46am bone marrow biopsy, [facility] Dr. Florencio Kingsley), subsequently treated with Revlimid and Velcade (starting in early July 2024), by [facility] Dr. Florencio Kingsley, DVT on xarelto, ambulatory dysfunction resulting in mechanical fall at home alone, and acute right displaced intert rochanteric femur fracture with subtrochanteric extension, for which patient underwent closed reduction and insertion of right antegrade [place] gamma 4, 66n068 mm intramedullary femoral nail (04/17/2024, [facility], Orthopedic Surgeon Dr. Phong Slater), followed by complaints of fevers, chills, poor oral intake with N/V/D at home, culminating in: (A) severe septic shock due to acute necrotizing fasciitis of right proximal/lateral thigh with Clostridium septicum+ right thigh wound culture (08/17/2024), s/p I & D (08/17/2024, 9:30pm, [facility], Orthopedic Surgeon Dr. Jaden Menendez), and coincident Clostrdium septicum- associated bacteremia (as noted in 1 of 2 anaerobic bottles only from 08/17/2024, 3:57pm blood cultures x 2), treated with clindamycin 900mg IV q8 x 17 doses (08/17/2024, 8pm 08/23, 4am) and penicillin 4 million units IV q4 x 25 doses (08/20/2024, 11:30am to 08/24/2024, 2:00pm) and pressor support with norepinephrine @ 8 micrograms/minute (08/17/2024 - 08/21/2024) and vasopressin 0.04 units/min (08/17/2024 - 08/19/2024) while in [facility] (08/17/2024 - 08/24/2024), (B) acute hypoxic respiratory failure requiring intubation (08/17/2024), then extubation (08/18/2024) at [facility]. (C) acute rhabdomyolysis with CK 1,278 U/L (08/17/2024, 3:12pm) and repeat CK 327 U/L (08/18/2024, 4:40am) with normal renal function (cf., creatinine 1.06 mg/dL (08/17/2024, 3:12pm) and repeat creatinine 0.99 mg/dL (08/17/2024, 11:40pm). (D) new onset, paroxysmal AFIB leading to acute PE/DVT, for which patient was restarted on his home-scheduled Xarelto. Patient was subsequently discharged to [facility] on 08/24/2024 with: 1. augmentin 875mg/125mg PO tid from 08/24/2024 - 08/31/2024, as per [facility] Infectious Disease Dr. [address]. 2. wound vac placed over patient's right proximal/lateral thigh wound, as per [facility] Infectious Disease Dr. [address]. 3. midodrine 10mg PO tid to treat persistent hypotension after titrating off pressor support with norepinephrine @ 8 micrograms/minute (08/17/2024 - 08/21/2024) and vasopressin 0.04 units/min (08/17/2024 - 08/19/2024) while in [facility] (08/17/2024 - 08/24/2024). Patient was also advised by his [facility] Dr. Florencio Kingsley to hold off Revlimid and Velcade until his follow up appointment with Dr. Kingsley on 09/02/2024 @ [facility]. Patient was subsequently sent back to [facility] ER on 09/04/2024 with complaints of progressively worsening SOB/LOTT for the previous 2 days. Patient was subsequently admitted to the inpatient hospitalist service @ [facility] on 09/04/2024 with the following diagnoses: 1. Acute hypoxic respiratory failure with O2 saturation 91% on room air (09/04/2024, 4:10pm), repeat O2 saturation 96% on high flow oxygen at 50 liters/minute (09/04/2024, 5:29pm) due to acute large right pleural effusion. 2. Acute fractures of right ribs #9 and #10 (lateral rib). 3. Chronic fractures of right ribs #10 (posterior rib) and #11. The following medical issues are being addressed on 09/11/2024: 1. Acute hypoxic respiratory failure with O2 saturation 91% on room air (09/04/2024, 4:10pm), repeat O2 saturation 96% on high flow oxygen at 50 liters/minute (09/04/2024, 5:29pm) due to acute large right pleural effusion. - Patient underwent therapeutic placement of right posterior 14 [place] pigtail catheter (09/05/2024, 7:00am, [facility] Front Office Specialist Dr. Christofer Chino) with 400 mL of blood fluid drained. Subsequently, acute hypoxic respiratory failure has RESOLVED with patient titrated off high flow oxygen at 50 liters/minute (09/04/2024, 5:29pm), followed by high flow oxygen at 40 liters/minute (09/05/2024, 7:47am),followed by 2 liters/minute O2 via nasal cannula (09/05/2024, 11:20am), followed by 1 liter/minute O2 via nasal cannula (09/05/2024, 12:00pm; 09/07/2024, 3:48am), followed by room air (09/08/2024, 8:21pm)(09/10/2024, 7:09pm). 2. Acute fractures of right ribs #9 and #10 (lateral rib). - Patient reports 0/10 pain on 09/08/2024 - 09/11/2024 while continuing to receive tylenol 650mg PO q6 prn pain 1-10, headache, temp > 100.4 degrees Fahrenheit. 3. Chronic fractures of right ribs #10 (posterior rib) and #11. - Patient reports 0/10 pain on 09/08/2024 - 09/11/2024 while continuing to receive tylenol 650mg PO q6 prn pain 1-10, headache, temp > 100.4 degrees Fahrenheit. 4. Persistent hypotension after titrating off pressor support with norepinephrine @ 8 micrograms/minute (08/17/2024 - 08/21/2024) and vasopressin 0.04 units/min (08/17/2024 - 08/19/2024) while in [facility] (08/17/2024 - 08/24/2024). cf., BP 90/61 (09/07/2024, 7:52am) on midodrine 100mg PO tid (8am, 12pm, 5pm) to maintain MAP > 65 mm Hg. D/C'd midodrine 100mg PO tid (8am, 12pm, 5pm) on 09/07/2024. Persistent hypotension has subsequently RESOLVED with BP 114/67 (09/08/2024, 8:21pm), repeat BP 103/57 (09/09/2024, 8:29pm), repeat BP 104/59 (09/10/2024, 7:09pm), and current BP 94/44 (09/11/2024, 8:47pm). Post-hospital admission diagnoses include: 5. Acute blood loss anemia with progressive decline in Hb levels since admission date 09/04/2024 to 09/07/2024, now with Hb level rising, starting on 09/08/2024: cf., Hb 10.1 g/dL, MCV 106.0, MCHC 31.8 (09/04/2024, 4:36pm). cf., Hb 9.1 g/dL, MCV 104.5, MCHC 32.6 (09/05/2024, 7:15am). cf., Hb 7.4 g/dL, MCV 104.5, MCHC 31.8 (09/06/2024, 6:18am). cf., Hb 8.9 g/dL, no MCV, no MCHC (09/06/2024, 2:09pm). cf., Hb 7.1 g/dL, MCV 104.6, MCHC 31.3 (09/07/2024, 7:02am). cf., Hb 7.7 g/dL, MCV 105.5, MCHC 30.8 (09/08/2024, 11:18am). cf., Hb 8.0 g/dL, MCV 102.0, MCHC 32.1 (09/09/2024, 7:09am). cf., Hb 8.7 g/dL, MCV 102.7, MCHC 32.1 (09/10/2024, 8:10am). cf., Hb 7.9 g/dL, MCV 99.6, MCHC 32.9(09/11/2024, 7:09am). Patient reports no mucosal bleeding and remains hemodynamically stable. Etiology of acute blood loss anemia remains unclear, but is probably due to incipient sepsis with publication of Pseudomonas aeruginosa (as reported in 09/06/2024 right hip wound culture). Check Hb in the 09/12/2024 am, and reserve packed RBC transfusion for Hb level < 7 g/dL. 6. Pancytopenia with progressive declines in all 3 cell lines: WBC, RBC, and platelets with rafia reached on 09/07/2024, now with WBC, RBC, and platelets rising on 09/08/2024: cf., WBC 5.19, Hb 10.1 g/dL, MCV 106.0, MCHC 31.8, platelet 169 (09/04/2024, 4:36pm). cf., WBC 3.60, Hb 9.1 g/dL, MCV 104.5, MCHC 32.6, platelet 167 (09/05/2024, 7:15am). cf., WBC 2.84, Hb 7.4 g/dL, MCV 104.5, MCHC 31.8, platelet 133 (09/06/2024, 6:18am). cf., no WBC, Hb 8.9 g/dL, no MCV, no MCHC, no platelet (09/06/2024, 2:09pm). cf., WBC 2.31, Hb 7.1 g/dL, MCV 104.6, MCHC 31.3, platelet 142 (09/07/2024, 7:02am)(rafia). cf., WBC 2.78, Hb 7.7 g/dL, MCV 105.5, MCHC 30.8, platelet 150 (09/08/2024, 11:18am). cf., WBC 3.08, Hb 8.0 g/dL, MCV 102.0, MCHC 32.1, platelet 149 (09/09/2024, 7:09am). cf., WBC 2.97, Hb 8.7 g/dL, MCV 102.7, MCHC 32.1, platelet 166 (09/10/2024, 8:10am). cf., WBC 2.92, Hb 7.9 g/dL, MCV 99.6, MCHC 32.9, platelet 172 (09/11/2024, 7:09am). Patient reports no fevers, chills, or diaphoresis on 09/07/2024. Etiology of pancytopenia remains unclear, but is probably due to incipient sepsis with publication of Pseudomonas aeruginosa (as reported in 09/06/2024 right hip wound culture). 7. Chronic/persistent AFIB. cf., EKG (09/04/2024, 4:16pm): AFIB @ 78, QTC 408, < 0.[address] depression in V4, V5, no acute ST elevations; q in V2 (by my review). Patient remains asymptomatic with no complaints of chest pain or palpitations on 09/07/2024 - 09/08/2024. Continue to hold OFF home-scheduled metoprolol 12.5mg PO qam given potential for this medication to cause hypotension, and continue to hold off patient's home-scheduled xarelto 15mg PO daily given potential for this medication to cause bleeding. 8. Incipient sepsis with publication of Pseudomonas aeruginosa (as reported in 09/06/2024 right hip wound culture). Patient remains afebrile with no complaints of right hip wound / thigh pain on 09/08/2024 - 09/09/2024. Started meropenem 500mg IV q6 (day #1/10 on 09/08/2024, 12:52pm, 5:53pm). Check vitals, right hip wound / right thigh, WBC w/diff, lactic acid, and procalcitonin in the 09/10/2024 am. In the interim, wound vac was applied over right hip wound on 09/09/2024 am. 9. Acute lactic acid elevation, RESOLVED. cf., Lactic acid #1 2.1 mmol/L (09/08/2024, 11:18am). cf., Lactic acid #2 2.2 mmol/L (09/08/2024, 2:51pm). cf., Lactic acid #3 2.3 mmol/L (09/08/2024, 6:34pm). cf., Lactic acid #3 2.3 mmol/L (09/08/2024, 6:34pm). cf., Lactic acid #4 1.0 mmol/L (09/09/2024, 7:09am). cf., Lactic acid #4 1.0 mmol/L (09/09/2024, 7:09am). cf., Lactic acid #5 1.9 mmol/L (09/10/2024, 8:10am). cf., Lactic acid #6 0.8 mmol/L (09/11/2024, 7:09am). Etiology of acute lactic acid elevation remains unclear, but is probably due to acute dehydration from decreased oral intake of water. Hence, I have opted to rehydrate patient with 1 liter of 0.9% NS @ 89 mL/hr (09/08/2024, 7:04pm), based on a delivery rate of 1 mL of 0.9% NS per kg of body weight per hour, and a body weight of 89.4 kg. Observe. 10. Disposition. Code status remains unchanged at DNR/DNI @ [facility] since 08/24/2024. Patient, patient's son, Mr. Ismael Patterson ( ), and patient's daughter, Ms. Divine Evans ( )) underwent Palliative Care Service evaluation (09/08/2024, 9:05am) with Ms. Jyothi Denise. Together, they affirmed that patient is too sick to continue with Revlimid therapy for his multiple myeloma. Patient also had adverse effects while receiving Velcade, which precludes future utilization by patient. In addition, they affirmed that patient would not be discharged to hospice/comfort measures only, and instead, they affirmed that patient would begin a 10 day course of meropenem 500mg IV q8 (09/08/2024, 5:53pm) as Case Management Service enters a referral for patient to go to [facility]hab as patient is too weak to participate with physical therapy 3 hours per day, as required of patients at [facility]. Hence, I anticipate that this patient will remain in [facility] for the next 1 day, after which, patient will be discharged to [facility]. Admission and Anticipated Discharge Date Admission Date: September 04, 2024 Subjective "I feel fine. No complaints today. Hopefully, I can go to [facility] for rehab tomorrow. I am gonna beat this thing." Review of Systems Constitutional: Negative for antecedent/coincident fevers, chills, diaphoresis, cough, wheeze, sore throat, hemoptysis, chest pains, palpitations, pleurisy, nausea, vomiting, diarrhea, abdominal pain, pelvic pain, hematemesis, hematochezia, melena, hematuria, dysuria, frequency, urgency, headaches, dizziness, lightheadedness, visual changes, hearing changes, weakness, falls, syncope, trauma, travel history, sick contacts, or food/drug ingestions novel or new. All other review of systems are reported as negative by the patient on 09/11/2024. Physical Exam Constitutional: General: Run-down, worn-out, asthenic with mouth closed now. Comfortable, cooperative, coherent. Wide awake and alert. Not confused, lethargic, or obtunded. Patient speaks in complete, fluent, and articulate sentences without pause, interruption, cough, or wheeze. HEENT: Normocephalic, atraumatic. Pupils equally round and reactive to light. No nystagmus, gaze paresis, anisocoria, miosis, mydriasis, hyphema, scleral injection, conjunctivitis, or pterygium. No otorrhea. No pharyngeal erythema, edema, or discharge. Neck: Supple, no stridor, bruit, goiter, or hepato-jugular reflux. Jugular venous pressure is estimated to be 3 cm above the sternal angle of Horacio, which in turn, is 5 cm above the level of the right atrium; with jugular venous pressure estimated to be 8 cm, then, there is no jugular venous distention on 09/11/2024. Lymphatics: No cervical (anterior/posterior), supraclavicular, infraclavicular, axillary, epitrochlear, or inguinal adenopathy. Chest: Symmetric rise and fall with respirations. Non-tender to palpation. Right-sided chest tube in situ (inserted on 09/05/2024, 7:00am, [facility] Front Office Specialist Dr. Christofer Chino) with expression of 400 mL of grossly bloody effluent removed. Right-sided chest tube removed on 09/09/2024, 8:30am, [facility] Front Office Specialist Dr. Gus Quijano). Lungs: Clear to auscultation and percussion. No audible expiratory wheeze, egophony, pectoriloquy, increase in tactile fremitus, or flatness/dullness to percussion at the bases. Heart: Regular rate. Irregularly irregular rhythm. S1 and S2 noted. No S3 or S4 summation gallop. No tripartite friction rub. Grade II/ early systolic murmur @ LLSB without radiation to the carotids, axilla, or back, and which remains invariant in regards to the respiratory cycle. Abdomen: Soft, non-tender, non-distended. No rebound, guarding, Osborne's sign, or organomegaly. Bowel sounds auscultated in all 4 quadrants. Extremities: No clubbing, cyanosis, or edema in upper extremities or lower extremities bilaterally. 2+ pedal pulses bilaterally. Skin: No decubitus ulcer or enanthem. Genito-urinary: No urethral discharge. + vargas catheter with 0.33 mL/kg/hr expressed from 09/10/2024, 9:52pm to 09/11/2024, 9:52pm. Neurology: Alert and oriented in regards to person, place, time, and situation. DTR+. 4/5 motor strength in all 4 extremities, both proximally and distally. No myoclonus, tremors, or tics. Psychiatry: No homicidal ideation. No suicidal ideation. No flat affect; smiles appropriately. Results & Data Results & Data Vital Signs (Past 12 Hours) Vital Signs Temp Pulse Pulse Resp BP BP Pulse Ox 09/11/24 20:47 09/11/24 20:00 36.6 C 85 20 94/44 L 94 09/11/24 15:50 37.0 C 84 20 104/67 96 09/11/24 13:53 76 09/11/24 11:40 36.5 C 77 17 91/50 L 91 09/11/24 11:08 09/11/24 10:19 74 O2 Del Method 09/11/24 20:47 Room Air 09/11/24 20:00 Room Air 09/11/24 15:50 Room Air 09/11/24 13:53 09/11/24 11:40 Room Air 09/11/24 11:08 Room Air 09/11/24 10:19 Laboratory Results WBC 5.19, N75 L9 M15, Hb 10.1, MCV 106.0, MCHC 31.8, platelet 169 (09/04/2024, 4:36pm). WBC 3.60, no differential, Hb 9.1, MCV 104.5, MCHC 32.6, platelet 167 (09/05/2024, 7:15am). WBC 2.84, no differential, Hb 7.4, MCV 104.5, MCHC 31.8, platelet 133 (09/06/2024, 6:18am). Hb 8.9 (09/06/2024, 2:09pm). WBC 2.31, no differential, Hb 7.1, MCV 104.6, MCHC 31.3, platelet 142 (09/07/2024, 7:02am). WBC 2.78, N55 L18 M22 E5, Hb 7.7, MCV 105.5, MCHC 30.8, platelet 150 (09/08/2024, 11:18am). WBC 3.08, N46 L27 M24 E3, Hb 8.0, MCV 102.0, MCHC 32.1, platelet 149 (09/09/2024, 7:09am). WBC 2.97, N53 L23 M21 E3, Hb 8.7, MCV 102.7, MCHC 32.1, platelet 166 (09/10/2024, 8:10am). WBC 2.92, N49 L22 M25 E3, Hb 7.9, MCV 99.6, MCHC 32.9, platelet 172 (09/11/2024, 7:09am). Right thigh wound culture (09/06/2024): Pseudomonas aeruginosa Right thigh wound culture (08/17/2024): Clostridium septicum ESR 31 mm/hr (09/07/2024, 12:11pm). ESR 37 mm/hr (09/08/2024, 11:18am). ESR 27 mm/hr (09/09/2024, 7:09am). ESR 36 mm/hr (09/10/2024, 8:10am). CRP 6.04 mg/dL (09/07/2024, 12:11pm). CRP 4.59 mg/dL (09/08/2024, 11:18am). CRP 4.65 mg/dL (09/09/2024, 7:09am). CRP 6.04 mg/dL (09/10/2024, 8:10am). Na 139, K 3.6, BUN 25, creatinine 0.8, glucose 190, Ca 8.3 (09/04/2024, 4:36pm). Na 141, K 3.4, BUN 25, creatinine 0.72, glucose 141, Ca 8.1 (09/05/2024, 7:15am). Na 141, K 3.5, BUN 21, creatinine 0.57, glucose 116, Ca 7.6 (09/06/2024, 2:09pm). Na 139, K 3.9, BUN 19, creatinine 0.71, glucose 102, Ca 7.6 (09/07/2024, 7:02am). Na 138, K 3.9, BUN 15, creatinine 0.61, glucose 108, Ca 7.6 (09/08/2024, 11:18am). Na 137, K 3.8, BUN 13, creatinine 0.53, glucose 108, Ca 7.4 (09/09/2024, 7:09am). Lactic acid #1 2.1 mmol/L (09/08/2024, 11:18am). Lactic acid #2 2.2 mmol/L (09/08/2024, 2:51pm). Lactic acid #3 2.3 mmol/L (09/08/2024, 6:34pm). Lactic acid #4 1.0 mmol/L (09/09/2024, 7:09am). Lactic acid #5 1.9 mmol/L (09/10/2024, 8:10am). Lactic acid #6 0.8 mmol/L (09/11/2024, 7:09am). Procalcitonin #1 0.13 ng/mL (09/08/2024, 11:18am). Procalcitonin #2 0.13 ng/mL (09/09/2024, 7:09am). Procalcitonin #3 0.11 ng/mL (09/10/2024, 8:10am). Procalcitonin #4 0.08 ng/mL (09/11/2024, 7:09am). Diagnostic Findings Portable CXR (09/04/2024, 4:20pm): 1. Complete opacification of the right hemithorax, consistent with enlarged pleural effusion from what was seen on prior 08/20/2024 portable CXR. 2. Smaller left pleural effusion is also appreciated. 3. Inferolateral right rib fractures. 4. No cardiomegaly, pulmonary vascular congestion, pneumothorax, or infiltrate. (by my review). CT chest without IV contrast (09/04/2024, 5:33pm): 1. Large right pleural effusion occupying the hemithorax, and compressing the right lung. 2. Small left pleural effusion. 3. Right ribs 9 and 10, contain displaced rib fractures, which may be acute. 4. There is also healing callus associated with a posterior right rib 11, and another portion of the posterior right rib 10, suggesting healing fractures. Portable CXR (, 6:54am). 1. Complete white out of right lung. (Minimal decrease in haziness compared to previous radiograph)-interval placement of tube. 2. Minimal blunting of left costophrenic angle with hazy left lower zone opacity. (Stable) 3. No cardiomegaly, pulmonary vascular congestion, pneumothorax, or infiltrate. (by my review). Portable CXR (09/06/2024, 7:00am): 1. Chest tube seen in situ. 2. Interval regressed, homogeneous opacification of the right lower zone obscuring the right costophrenic recess. Mild pleural effusion. 3. Small/minimal pleural reaction at the left costophrenic recess. Minimal left pleural effusion. 4. Cardiomegaly with bilateral hilar congestion. 5. Comparing the previous x-ray dated 09/05/2024, there is significant regressed right pleural effusion. 6. No pneumothorax. (by my review). Portable CXR (09/07/2024, 7:00am): 1. Chest tube seen in situ on right side(unchanged). 2. Homogeneous ground glassing is noted involving right lung as compared to its counter part-new finding. 3. Interval stable homogeneous opacification of the right lower zone obscuring the right costophrenic recess. Mild right pleural effusion. 4. Small/minimal pleural reaction at the left costophrenic recess. Minimal left pleural effusion.-stable. 5. Cardiomegaly with bilateral hilar congestion. 6. No pneumothorax. (by my review). PG Care Time/CCT Total # of Minutes Spent Total Time Spent with Patient: Total time spent is greater than 50% in coordination of care (as documented) at patient's floor/unit and/or counseling patient: Coding Level of Care Code 50581 SUB INP/OBS CARE 3/50MIN Diagnoses Pleural effusion J90 Acute respiratory failure J96.00 Multiple myeloma C90.00 Atrial fibrillation I48.91
[2024-09-12 09:02] LABS: Hematocrit (blood only) 29.3 % (42.0-52.0); Hemoglobin 9.2 g/dl (14.0-18.0); Immature Granulocytes # (auto) 0.01 K/uL (0.01-0.20); Immature Granulocytes % (auto) 0.3 %; Mean Corpuscular Hemoglobin 32.3 pg (25.0-34.0); Mean Corpuscular Volume 102.8 fL (80.0-100.0); Platelet Count 188 K/uL (130-400); RDW Standard Deviation 64.6 fL (36.4-46.3); Red Blood Count 2.85 M/uL (4.70-6.10); White Blood Count 2.92 K/ul (4.8-10.8)
[2024-09-12 09:20] LABS: Anion Gap 4.0 (3-11); Blood Urea Nitrogen 11.0 mg/dl (6-23); Calcium 7.6 mg/dl (8.6-10.3); Carbon Dioxide 29.0 mmol/L (21-32); Chloride 103.0 mmol/L (98-107); Creatinine Clr Calc Pharmacy 88.7 ml/min; Glucose 147.0 mg/dl (70-99(Fasting)); Potassium 3.6 mmol/L (3.5-5.1); Sodium 136.0 mmol/L (136-145)
[2024-09-12 11:23] VITALS: RESP 18
[2024-09-12] MEDS: MIDODRINE HCL 10 MG TAB PO SCH (12:39)
--- NOTE | 2024-09-12 12:48 | Discharge Summary ---
Discharge Summary Date of Service September 12, 2024 Principal Dx & Hospital Course #1 = Principal Diagnosis (1) Pleural effusion: (2) Acute respiratory failure: (3) Multiple myeloma: (4) Atrial fibrillation: Plan 89 years old male with PMH of DNR/DNI @ [facility] since 08/24/2024, overweight with BMI 26.7 (height 182.9 cm; weight 89.4 kg), chronic macrocytic, normochromic anemia with progressive decline in Hb range from 12.6 g/dL, MCV 103.8, MCHC 34.7 (02/10/2018, 8:13am) to 8.6 g/dL, MCV 101.6, MCHC 34.8 (08/24/2024, 5:42am), multiple myeloma (diagnosed on 11/20, 9:46am bone marrow biopsy, [facility] Dr. Florencio Kingsley), subsequently treated with Revlimid (lenalidomide) 25mg PO q6pm and/or Velcade (bortezomib) 3.5mg IV q7days (starting in early July 2024), by [facility] Dr. Florencio Kingsley, DVT on xarelto, ambulatory dysfunction resulting in mechanical fall at home alone, chronic urinary retention requiring vargas catheter, and acute right displaced intertrochanteric femur fracture with subtrochanteric extension, for which patient underwent closed reduction and insertion of right antegrade Dimas gamma 4, [id number] mm intramedullary femoral nail (04/17/2024, [facility], Orthopedic Surgeon Dr. Phong Slater), followed by complaints of fevers, chills, poor oral intake with N/V/D at home, culminating in: (A) severe septic shock due to acute necrotizing fasciitis of right proximal/lateral thigh with Clostridium septicum+ right thigh wound culture (08/17/2024), s/p I & D (08/17/2024, 9:30pm, [facility], Orthopedic Surgeon Dr. Jaden Menendez), and coincident Clostrdium septicum- associated bacteremia (as noted in 1 of 2 anaerobic bottles only from 08/17/2024, 3:57pm blood cultures x 2), treated with clindamycin 900mg IV q8 x 17 doses (08/17/2024, 8pm 08/23, 4am) and penicillin 4 million units IV q4 x 25 doses (08/20/2024, 11:30am to 08/24/2024, 2:00pm) and pressor support with norepinephrine @ 8 micrograms/minute (08/17/2024 - 08/21/2024) and vasopressin 0.04 units/min (08/17/2024 - 08/19/2024) while in [facility] (08/17/2024 - 08/24/2024), (B) acute hypoxic respiratory failure requiring intubation (08/17/2024), then extubation (08/18/2024) at [facility]. (C) acute rhabdomyolysis with CK 1,278 U/L (08/17/2024, 3:12pm) and repeat CK 327 U/L (08/18/2024, 4:40am) with normal renal function (cf., creatinine 1.06 mg/dL (08/17/2024, 3:12pm) and repeat creatinine 0.99 mg/dL (08/17/2024, 11:40pm). (D) new onset, paroxysmal AFIB leading to acute PE/DVT, for which patient was restarted on his home-scheduled Xarelto. Patient was subsequently discharged to [facility] on 08/24/2024 with: 1. augmentin 875mg/125mg PO tid from 08/24/2024 - 08/31/2024, as per [facility] Infectious Disease Dr. [address]. 2. wound vac placed over patient's right proximal/lateral thigh wound, as per [facility] Infectious Disease Dr. [address]. 3. midodrine 10mg PO tid to treat persistent hypotension after titrating off pressor support with norepinephrine @ 8 micrograms/minute (08/17/2024 - 08/21/2024) and vasopressin 0.04 units/min (08/17/2024 - 08/19/2024) while in [facility] (08/17/2024 - 08/24/2024). Patient was also advised by his [facility] Dr. Florencio Kingsley to hold off Revlimid and Velcade until his follow up appointment with Dr. Kingsley on 09/02/2024 @ [facility]. Patient was subsequently sent back to [facility] ER on 09/04/2024 with complaints of progressively worsening SOB/LOTT for the previous 2 days. Patient was subsequently admitted to the inpatient hospitalist service @ [facility] on 09/04/2024 with the following diagnoses: 1. Acute hypoxic respiratory failure with O2 saturation 91% on room air (09/04/2024, 4:10pm), repeat O2 saturation 96% on high flow oxygen at 50 liters/minute (09/04/2024, 5:29pm) due to acute large right pleural effusion. 2. Acute fractures of right ribs #9 and #10 (lateral rib). 3. Chronic fractures of right ribs #10 (posterior rib) and #11. The following medical issues were addressed while the patient remained in [facility] from 09/04/2024 through 09/12/2024: 1. Acute hypoxic respiratory failure with O2 saturation 91% on room air (09/04/2024, 4:10pm), repeat O2 saturation 96% on high flow oxygen at 50 liters/minute (09/04/2024, 5:29pm) due to acute large right pleural effusion. RESOLVED. - Patient underwent therapeutic placement of right posterior 14 American pigtail catheter (09/05/2024, 7:00am, [facility] R[facility] Dr. Christofer Chino) with 400 mL of blood fluid drained. Subsequently, acute hypoxic respiratory failure has RESOLVED with patient titrated off high flow oxygen at 50 liters/minute (09/04/2024, 5:29pm), followed by high flow oxygen at 40 liters/minute (09/05/2024, 7:47am),followed by 2 liters/minute O2 via nasal cannula (09/05/2024, 11:20am), followed by 1 liter/minute O2 via nasal cannula (09/05/2024, 12:00pm; 09/07/2024, 3:48am), followed by room air (09/08/2024, 8:21pm)(09/10/2024, 7:09pm). 2. Acute fractures of right ribs #9 and #10 (lateral rib). Asymptomatic. - Patient reports 0/10 pain on 09/08/2024 - 09/12/2024 while continuing to receive tylenol 650mg PO q6 prn pain 1-10, headache, temp > 100.4 degrees Fahrenheit. 3. Chronic fractures of right ribs #10 (posterior rib) and #11. Asymptomatic. - Patient reports 0/10 pain on 09/08/2024 - 09/12/2024 while continuing to receive tylenol 650mg PO q6 prn pain 1-10, headache, temp > 100.4 degrees Fahrenheit. 4. Persistent hypotension after titrating off pressor support with norepinephrine @ 8 micrograms/minute (08/17/2024 - 08/21/2024) and vasopressin 0.04 units/min (08/17/2024 - 08/19/2024) while in [facility] (08/17/2024 - 08/24/2024). cf., BP 90/61 (09/07/2024, 7:52am) on midodrine 100mg PO tid (8am, 12pm, 5pm) to maintain MAP > 65 mm Hg. D/C'd midodrine 100mg PO tid (8am, 12pm, 5pm) on 09/07/2024. Persistent hypotension subsequently RESOLVED with BP 114/67 (09/08/2024, 8:21pm), repeat BP 103/57 (09/09/2024, 8:29pm), repeat BP 104/59 (09/10/2024, 7:09pm), then persistent hypotension RECURRED with repeat BP 94/44 (09/11/2024, 8:47pm) and discharge BP 88/49 (09/12/2024, 11:09am). Of note, patient remained completely asymptomatic with no complaints of dizziness, lightheadedness, near syncope, or syncope desite recurrence of persistence hypotension. Nonetheless, patient was RESTARTED on his home-scheduled midodrine 100mg PO tid (8am, 12pm, 5pm) on 09/12/2024, 12:39pm). Patient will continue his home-scheduled midodrine 100mg PO tid (8am, 12pm, 5pm) on hospital discharge to [facility] on 09/12/2024, 5:00pm. --- Post-hospital admission diagnoses include: 5. Acute blood loss anemia (RESOLVED) with progressive decline in Hb levels since admission date 09/04/2024 to 09/07/2024, now with Hb level rising, starting on 09/08/2024: cf., Hb 10.1 g/dL, MCV 106.0, MCHC 31.8 (09/04/2024, 4:36pm). cf., Hb 9.1 g/dL, MCV 104.5, MCHC 32.6 (09/05/2024, 7:15am). cf., Hb 7.4 g/dL, MCV 104.5, MCHC 31.8 (09/06/2024, 6:18am). cf., Hb 8.9 g/dL, no MCV, no MCHC (09/06/2024, 2:09pm). cf., Hb 7.1 g/dL, MCV 104.6, MCHC 31.3 (09/07/2024, 7:02am). cf., Hb 7.7 g/dL, MCV 105.5, MCHC 30.8 (09/08/2024, 11:18am). cf., Hb 8.0 g/dL, MCV 102.0, MCHC 32.1 (09/09/2024, 7:09am). cf., Hb 8.7 g/dL, MCV 102.7, MCHC 32.1 (09/10/2024, 8:10am). cf., Hb 7.9 g/dL, MCV 99.6, MCHC 32.9(09/11/2024, 7:09am). cf., Hb 9.2 g/dL, MCV 102.8, MCHC 31.4 (09/12/2024, 8:44am). Patient reports no mucosal bleeding and remains hemodynamically stable. Etiology of acute blood loss anemia remains unclear, but was probably due to incipient sepsis with publication of Pseudomonas aeruginosa (as reported in 09/06/2024 right hip wound culture). Of note, patient did not require or receive any packed RBC transfusions while in [facility] from admission date 09/04/2024 through discharge date 09/12/2024. 6. Pancytopenia (RESOLVED) with progressive declines in all 3 cell lines: WBC, RBC, and platelets with rafia reached on 09/07/2024, now with WBC, RBC, and platelets rising on 09/08/2024: cf., WBC 5.19, Hb 10.1 g/dL, MCV 106.0, MCHC 31.8, platelet 169 (09/04/2024, 4:36pm). cf., WBC 3.60, Hb 9.1 g/dL, MCV 104.5, MCHC 32.6, platelet 167 (09/05/2024, 7:15am). cf., WBC 2.84, Hb 7.4 g/dL, MCV 104.5, MCHC 31.8, platelet 133 (09/06/2024, 6:18am). cf., no WBC, Hb 8.9 g/dL, no MCV, no MCHC, no platelet (09/06/2024, 2:09pm). cf., WBC 2.31, Hb 7.1 g/dL, MCV 104.6, MCHC 31.3, platelet 142 (09/07/2024, 7:02am)(rafia). cf., WBC 2.78, Hb 7.7 g/dL, MCV 105.5, MCHC 30.8, platelet 150 (09/08/2024, 11:18am). cf., WBC 3.08, Hb 8.0 g/dL, MCV 102.0, MCHC 32.1, platelet 149 (09/09/2024, 7:09am). cf., WBC 2.97, Hb 8.7 g/dL, MCV 102.7, MCHC 32.1, platelet 166 (09/10/2024, 8:10am). cf., WBC 2.92, Hb 7.9 g/dL, MCV 99.6, MCHC 32.9, platelet 172 (09/11/2024, 7:09am). cf., WBC 2.92, Hb 9.2 g/dL, MCV 102.8, MCHC 31.4, platelet 188 (09/12/2024, 8:44am). Patient reports no fevers, chills, or diaphoresis on 09/07/2024. Etiology of pancytopenia remains unclear, but was probably due to incipient sepsis with publication of Pseudomonas aeruginosa (as reported in 09/06/2024 right hip wound culture) and/or contributions from patient's recent treatment of multiple myeloma with Revlimid (lenalidomide) 25mg PO q6pm and/or Velcade (bortezomib) 3.5mg IV q7days, both of which were not administered to the patient while the patient remained in [facility] from admission date 09/04/2024 through discharge date 09/12/2024. Moreover, patient will NOT resume either Revlimid or Velcade on hospital discharge to [facility] on 09/12/2024 as per patient's [facility] Dr. Florencio Kingsley, who reports that patient is too weak to receive Revlimid, and who also reports that patient developed adverse side effects while receiving Velcade in the past. 7. Chronic/persistent AFIB. Asymptomatic with rate-controlled OFF home- scheduled metoprolol 12.5mg PO qam. cf., EKG (09/04/2024, 4:16pm): AFIB @ 78, QTC 408, < 0.[address] depression in V4, V5, no acute ST elevations; q in V2 (by my review). Patient remains asymptomatic with no complaints of chest pain or palpitations from admission date 09/04/2024 through discharge date 09/12/2024. Patient did not receive his home-scheduled metoprolol 12.5mg PO qam given potential for this medication to cause hypotension, especially in this patient who subsequently developed RECURRENT hypotension with repeat BP 94/44 (09/11/2024, 8:47pm) and discharge BP 88/49 (09/12/2024, 11:09am). Of note, patient remained completely asymptomatic with no complaints of dizziness, lightheadedness, near syncope, or syncope desite recurrence of persistence hypotension. Nonetheless, patient was RESTARTED on his home-scheduled midodrine 100mg PO tid (8am, 12pm, 5pm) on 09/12/2024, 12:39pm). Patient will continue his home-scheduled midodrine 100mg PO tid (8am, 12pm, 5pm) on hospital discharge to [facility] on 09/12/2024, 5:00pm. Patient also did not receive his home-scheduled xarelto 20mg PO qpm, given potential for this medication to cause bleeding in this patient who developed acute blood loss anemia, as described in bullet #5 above. Subsequently, acute blood loss anemia RESOLVED spontaneously, as described in bullet #5 above. Hence, patient will resume his home-scheduled xarelto 20mg PO qpm after patient is discharged to [facility] on 09/12/2024, 5:00pm. 8. Incipient sepsis with publication of Pseudomonas aeruginosa (as reported in 09/06/2024 right hip wound culture), RESOLVING well on discharge date 09/12/2024. Patient remains afebrile with no complaints of right hip wound / thigh pain while in [facility] from admission date 09/04/2024 through discharge date 09/12/2024. Patient received meropenem 500mg IV q6 x 17 doses (day #1/10 on 09/08/2024, 12:52pm; day #5/10 on 09/12/2024, 12:39pm) via peripheral IV while in [facility]. Patient will continue with meropenem 500mg IV q6 for the next 21 doses (day #5/10 on 09/12/2024, 6:00pm; day #10/10 on 09/17/2024, 6:00pm) via peripheral IV at [facility]. In addition, wound vac was applied over right hip wound on 09/09/2024 am while in [facility]. Patient will continue with wound vac applied over right hip wound on hospital discharge to [facility] on 09/12/2024, 5:00pm. 9. Acute lactic acid elevation, RECURRENT. cf., Lactic acid #1 2.1 mmol/L (09/08/2024, 11:18am). cf., Lactic acid #2 2.2 mmol/L (09/08/2024, 2:51pm). cf., Lactic acid #3 2.3 mmol/L (09/08/2024, 6:34pm). cf., Lactic acid #3 2.3 mmol/L (09/08/2024, 6:34pm). cf., Lactic acid #4 1.0 mmol/L (09/09/2024, 7:09am). cf., Lactic acid #4 1.0 mmol/L (09/09/2024, 7:09am). cf., Lactic acid #5 1.9 mmol/L (09/10/2024, 8:10am). cf., Lactic acid #6 0.8 mmol/L (09/11/2024, 7:09am). cf., Lactic acid #7 2.5 mmol/L (09/12/2024, 8:44pm). cf., Lactic acid #8 (09/12/2024, 12:44pm). Etiology of acute lactic acid elevation remains unclear, but is probably due to acute dehydration from decreased oral intake of water. Hence, I opted to rehydrate patient with 1 liter of 0.9% NS @ 89 mL/hr (09/08/2024, 7:04pm), based on a delivery rate of 1 mL of 0.9% NS per kg of body weight per hour, and a body weight of 89.4 kg. Subsequently, acute lactic acid elevation RESOLVED, as shown above, only to RECUR on 09/12/2024. Hence, I surmise that patient is still acutely dehydrated, and consequently, I have advised the patient to increase his intake of a regular diet PO ad libitum. Patient concedes that "I can't chew food too well because my back teeth are all loose and my dentist wants to take another tooth out, but I am afraid that if he takes out another tooth, I will have one less tooth to chew with. So, I have to eat and chew my food slowly, and I cannot eat too many solid foods because they are too hard for me to chew on. I can swallow water and other liquids just fine, it's just the solid food that I have trouble with. Like steak, for example, that is too hard for me to chew into smaller pieces. My teeth are 89 years old, you know." I concur. 10. Urology. Chronic urinary retention. Patient had a vargas catheter inserted @ [facility] prior to admission date 09/06/2024. Vargas catheter remained in situ while patient remained in [facility] from admission date 09/06/2024 through discharge date 09/12/2024. Patient's urine output remains brisk with urine output of 0.61 mL/kg/hr (09/11/2024, 1:18pm to 09/12/2024, 1:18pm). No attempts were made to remove vargas and initiate voiding trial while patient remained in [facility] from admission date 09/06/2024 through discharge date 09/12/2024. Patient was subsequently discharged to [facility] on 09/12/2024 with instructions for vargas catheter to be removed once the medical staff physician @ [facility] can assess the patient for vargas catheter removal and spontaneous voiding trial after vargas catheter is removed at [facility]. 11. Disposition. Code status remains unchanged at DNR/DNI @ [facility] since 08/24/2024. Patient, patient's son, Mr. Ismael Patterson ( ), and patient's daughter, Ms. Divine Evans ()) underwent Palliative Care Service evaluation (09/08/2024, 9:05am) with Ms. Jyothi Denise. Together, they affirmed that patient is too sick to continue with Revlimid (lenalidomide) 25mg PO q6pm therapy for his multiple myeloma. Patient also had adverse effects while receiving Velcade, which precludes future utilization by patient. In addition, they affirmed that patient would not be di scharged to hospice/comfort measures only, and instead, they affirmed that patient would begin a 10 day course of meropenem 500mg IV q8 (09/08/2024, 5:53pm) as Case Management Service entered a referral for patient to go to [facility] as patient is too weak to participate with physical therapy 3 hours per day, as required of patients at [facility]. Patient was subsequently discharged to [facility] on 09/12/2024, 5:00pm. Patient will follow up with his PCP Dr. Perez Berman within 5-7 days of hospital discharge for routine, follow-up visit. Admission HPI Per Admitting Provider 89-year-old man with multiple myeloma and atrial fibrillation who came in with 2 days of increasing shortness of breath at rest. He had some rib pain during this time but none currently. He is coughing up white sputum. No hemoptysis. No fevers or chills. He had a femur fracture this April. He was recently hospitalized from 08/17 - 08/24. during that admission he was critically ill with necrotizing fasciitis of his right thigh from Clostridium and he was bacter emic. He had debridement, treatment with antibiotics, and was discharged to [facility] for rehab. He should have completed his course of Bactrim 4 days ago as advised by ID. He has severe anasarca since his previous hospitalization which he says has been improving a lot. prior to that admission he had been on Revlimid and Velcade for his myeloma. Discharge Exam Constitutional General: Comfortable, cooperative, coherent. Wide awake and alert. Not confused, lethargic, or obtunded. Patient speaks in complete, fluent, and articulate sentences without pause, interruption, cough, or wheeze. HEENT: Normocephalic, atraumatic. Pupils equally round and reactive to light. No nystagmus, gaze paresis, anisocoria, miosis, mydriasis, hyphema, scleral injection, conjunctivitis, or pterygium. No otorrhea. No pharyngeal erythema, edema, or discharge. Neck: Supple, no stridor, bruit, goiter, or hepato-jugular reflux. Jugular venous pressure is estimated to be 3 cm above the sternal angle of Horacio, which in turn, is 5 cm above the level of the right atrium; with ju gular venous pressure estimated to be 8 cm, then, there is no jugular venous distention on 09/11/2024. Lymphatics: No cervical (anterior/posterior), supraclavicular, infraclavicular, axillary, epitrochlear, or inguinal adenopathy. Chest: Symmetric rise and fall with respirations. Non-tender to palpation. Right-sided chest tube in situ (inserted on 09/05/2024, 7:00am, [facility] R[facility] Dr. Christofer Chino) with expression of 400 mL of grossly bloody effluent removed. Right-sided chest tube removed on 09/09/2024, 8:30am, [facility] Rope [facility] Dr. Gus Quijano). Lungs: Clear to auscultation and percussion. No audible expiratory wheeze, egophony, pectoriloquy, increase in tactile fremitus, or flatness/dullness to percussion at the bases. Heart: Regular rate. Irregularly irregular rhythm. S1 and S2 noted. No S3 or S4 summation gallop. No tripartite friction rub. Grade II/ early systolic murmur @ LLSB without radiation to the carotids, axilla, or back, and which remains invariant in regards to the respiratory cycle. Abdomen: Soft, non-tender, non-distended. No rebound, guarding, Osborne's sign, or organomegaly. Bowel sounds auscultated in all 4 quadrants. Extremities: No clubbing, cyanosis, or edema in upper extremities or lower extremities bilaterally. 2+ pedal pulses bilaterally. Skin: No decubitus ulcer or enanthem. Genito-urinary: No urethral discharge. + vargas catheter with 0.61 mL/kg/hr expressed from 09/11/2024, 1:22pm to 09/12/2024, 1:22pm. Neurology: Alert and oriented in regards to person, place, time, and situation. DTR+. 4/5 motor strength in all 4 extremities, both proximally and distally. No myoclonus, tremors, or tics. Psychiatry: No homicidal ideation. No suicidal ideation. No flat affect; smiles appropriately. Discharge Plan Discharge Items Patient Disposition: Transfer Care Home Fac Reason For Visit: PLEURAL EFFUSION Discharge Diagnosis: 1. Acute hypoxic respiratory failure with O2 saturation 91% on room air (09/04/2024, 4:10pm), repeat O2 saturation 96% on high flow oxygen at 50 liters/minute (09/04/2024, 5:29pm) due to acute large right pleural effusion. 2. Acute fractures of right ribs #9 and #10 (lateral rib). 3. Chronic fractures of right ribs #10 (posterior rib) and #11. 4. Persistent hypotension after titrating off pressor support with norepinephrine @ 8 micrograms/minute (08/17/2024 - 08/21/2024) and vasopressin 0.04 units/min (08/17/2024 - 08/19/2024) while in [facility] (08/17/2024 - 08/24/2024). 5. Acute blood loss anemia with progressive decline in Hb levels since admission date 09/04/2024 to 09/07/2024, now with Hb level rising, starting on 09/08/2024. 6. Pancytopenia with progressive declines in all 3 cell lines: WBC, RBC, and platelets with rafia reached on 09/07/2024, now with WBC, RBC, and platelets rising on 09/08/2024. 7. Chronic/persistent AFIB. 8. Incipient sepsis with publication of Pseudomonas aeruginosa (as reported in 09/06/2024 right hip wound culture). 9. Acute lactic acid elevation, RESOLVED. 10. Disposition. Code status remains unchanged at DNR/DNI @ [facility] since 08/24/2024. Condition on Discharge: Fair Activity: Resume your previous activity Lifting: Gradually increase as tolerated Bathing: No limitations Exercise/Sports: Gradually increase as tolerated Weightbearing: Full weightbearing Non-emergency contact: Primary Care Provider Call non-emergency contact if: you have any medication questions Follow-up/Referrals: Perez Berman, [Primary Care Provider] - Diet: Heart Healthy Addtl Attending Provider Instructions: See your PCP Dr. Perez Berman within 5-7 days of hospital discharge for routine follow up visit. Pending Studies at Discharge: No Stand-Alone Forms: My [facility] Skilled Items Patient informed of condition?: Yes DNR: Yes Discharge Level of Care: Skilled Communicable Disease: No Discharge Prognosis: Stable Lines: None Urinary Catheter: Yes (Vargas catheter to be removed AFTER arrival to [facility].) Medications and DC Order Prescriptions: New meropenem 500 mg recon soln 500 mg IV Q6H 5 Days Rx Instructions: meropenem 500mg IV q6 x 21 doses (starting on 09/12/2024, 6:00pm; last dose on 09/17/2024, 6:00pm). Continued pantoprazole 40 mg tablet,delayed release (DR/EC) 40 mg PO HS Qty: 90 3RF potassium chloride 20 mEq tablet extended release 20 meq PO HS Qty: 90 1RF Xarelto 20 mg tablet 20 mg PO QPM Qty: 90 3RF Rx Instructions: must administer with evening meal ergocalciferol (vitamin D2) 1,250 mcg (50,000 unit) capsule 1,250 mcg PO WK Cerovite Senior 0.4 mg-300 mcg- 250 mcg Tablet 1 tab PO QAM 30 Days Qty: 30 0RF midodrine 10 mg Tablet 10 mg PO TID@0800,1200,1700 30 Days Qty: 90 0RF Discontinued lenalidomide [Revlimid] 25 mg Capsule 25 mg PO QPM Hold Instructions: Resume on 09/08/24. Rx Instructions: TAKES FOR 21 DAYS, THEN OFF FOR 7 DAYS. swallow whole with glass of water; do not open, crush, chew , break, or dissolve acyclovir 400 mg tablet 400 mg PO BID bortezomib [Velcade] 3.5 mg Recon Soln 0 mg IV WK Hold Instructions: Resume on 09/08/24. metoprolol tartrate 25 mg Tablet 12.5 mg PO QAM 30 Days Qty: 30 0RF Discharge Orders: Discharge Order (Routine); Ordered 09/12/24 Ordered By: Carl Recinos Admission Data Admit Date/Time: 09/04/24 19:16 Attending Provider: Carl Recinos Admit Provider: Verito Alfaro Primary Care Provider: Perez Berman Other Providers: Verito Alfaro; Christofer Chino; [facility] [facility] [place] [facility]; Moon Castano; [facility] Stay Data Consultations 09/04/24 17:30 ED Decision to Admit Stat 09/05/24 07:28 Consult Pulmonology Routine 09/06/24 08:18 Consult Palliative Care Routine Diagnostic Imagining Performed 09/04/24 17:33 CT chest diagnostic w con Stat 09/08/24 06:00 CT chest diagnostic wo con Routine Pending Results Patient Have Any Pending Studies at Discharge: No Discharge Instructions Given to Patient (Per Discharging Provider) See your PCP Dr. Perez Berman within 5-7 days of hospital discharge for routine follow up visit. Total Time Total Time Spent Total Time Spent (In Minutes): 35 minutes. Of this time period, 19 minutes were spent in coordinating patient's discharge. Coding Level of Care Code 23594 INP/OBS DISCH >30 MIN Diagnoses Pleural effusion J90 Acute respiratory failure J96.00 Multiple myeloma C90.00 Atrial fibrillation I48.91
[2024-09-12 15:19] VITALS: BP 100/58; PULSE 72; TEMP 97.5; O2SAT 96
== END 2024-09-12 18:44 | DRG 186 ==
LOC: ED 16:02 → 2S 19:16 → SUATTDRO 19:16 → 2S 20:44